=== PATIENT | female | born 1935 | race Caucasian/White ===

== ENCOUNTER 2017-07-04 19:57 | Inpatient (IN) | payer MEDICARE ==
[2017-07-04] MEDS ORDERED: ALBUTEROL SULFATE 0.083% NEB 2.5 MG/3 ML AMPUL NEB ONE ×2 (20:09→22:17)
[2017-07-04] MEDS ORDERED: IPRATROPIUM/ALBUTEROL 0.5-2.5 MG/3 ML AMPUL NEB ONE (20:09)
--- NOTE | 2017-07-04 20:10 | ER Document Report ---
ED General - General Stated Complaint: WEAKNESS Time Seen by Provider: 07/04/17 20:01 Notes: Patient is a 82 year old female who presents to the emergency department after witnessed AMS. Daughter states that she is coming back from the bathroom and she sat down that she did not feel well and proceeded to stare off for approximately 2 minutes with some twitching in her right hand and then when she came back to she has to go to the ER. EMS put her on 2L nasal cannula due to hypoxia.Daughter denies any history of seizures. Past medical history significant for congestive heart failure, hypertension. Unsure if PMH includes COPD Follows with [facility] - Related Data Allergies/Adverse Reactions: Beta-Blockers (Beta-Adrenergic Bloc Allergy (Verified 07/05/17 02:48) Past Medical History - Social History Smoking Status: Former Smoker Family History: Reviewed & Not Pertinent Review of Systems - Review of Systems Constitutional: No symptoms reported Cardiovascular: No symptoms reported Respiratory: See HPI Gastrointestinal: No symptoms reported Genitourinary: Incontinence Musculoskeletal: No symptoms reported Neurological/Psychological: See HPI -: Yes All other systems reviewed and negative Physical Exam - Notes Notes: PHYSICAL EXAM GENERAL: Alert, interacts well. HEAD: Normocephalic, atraumatic. EYES: Pupils equal, round, and reactive to light. Extraocular movements intact. ENT: Oral mucosa moist, tongue midline. NECK: Full range of motion. Supple. Trachea midline. LUNGS: Rhonchi noted in b/l lung bases, no wheezes, rales, or rhonchi. No respiratory distress. HEART: Regular rate and rhythm. No murmurs, gallops, or rubs. ABDOMEN: Soft, nondistended, nontender. No guarding, rebound, or rigidity.. Bowel sounds present in all 4 quadrants. EXTREMITIES: Moves all 4 extremities spontaneously. No edema, radial and dorsalis pedis pulses 2/4 bilaterally. No cyanosis. NEUROLOGICAL: Alert and oriented x4. Face symmetric. Tongue protrudes midline. Extraocular motions intact. Pupils are 2 mm and equally reactive. Normal speech. 5 out of 5 strength in both the distal and proximal upper and lower extremities bilaterally. Sensation is grossly intact throughout. Finger to nose testing normal. Pronator drift normal. PSYCH: Normal affect, normal mood. SKIN: Warm, dry, normal turgor. No rashes or lesions noted. Course - Re-evaluation Re-evalutation: 07/05/17 01:46 Patient is an 82-year-old female who is hemodynamically stable, no acute distress and afebrile. Presentation is consistent with a COPD exacerbation. Patient has improved on nebulizer treatments as well as nasal cannula but when ambulated she did desat to 88% was tachypneic she is trying to walk approximately 10 feet from her bed. Regarding her presenting complaint sounds consistent with absence seizure CT of the head is negative for evidence of a stroke. Patient's blood work without evidence of CHF exacerbation, electrolyte abnormalities, acute renal failure. Urinalysis is pending at this time. Patient to be admitted for hospitalist service. - Laboratory Result Diagrams: 07/04/17 19:25 07/04/17 19:25 Laboratory results interpreted by me: 07/04/17 07/04/17 07/04/17 19:25 19:25 22:35 WBC 13.9 H Hgb 16.4 H Hct 48.7 H Absolute Neutrophils 9.9 H ABG pO2 75.9 L ABG Total CO2 25.7 H BUN 27 H Est GFR (Non-Af Amer) 50 L Glucose 166 H Total Bilirubin 1.4 H - Diagnostic Test Radiology reviewed: Image reviewed, Reports reviewed - EKG Interpretation by Me EKG shows normal: Sinus rhythm Rate: Normal Rhythm: NSR When compared to previous EKG there are: Previous EKG unavailable Discharge - Discharge Clinical Impression: COPD (chronic obstructive pulmonary disease) Qualifiers: COPD type: unspecified COPD Qualified Code(s): J44.9 - Chronic obstructive pulmonary disease, unspecified Condition: Stable Disposition: ADMITTED INPATIENT Admitting Provider: Hospitalist Unit Admitted: Telemetry
[2017-07-04 20:20] LABS: ABSOLUTE BASOPHILS # (AUTO) 0.1 10^3/uL (0.0-0.2); ABSOLUTE EOSINOPHILS # (AUTO) 0.3 10^3/uL (0.0-0.6); ABSOLUTE LYMPHOCYTES (AUTO) 2.4 10^3/uL (0.5-4.7); ABSOLUTE MONOCYTES (AUTO) 1.1 10^3/uL (0.1-1.4); ABSOLUTE NEUT (AUTO) 9.9 10^3/uL (1.7-8.2); BASOPHILS % (AUTO) 0.8 % (0-2); EOSINOPHILS % (AUTO) 2.1 % (0-6); HEMATOCRIT 48.7 % (36.0-47.0); HEMOGLOBIN 16.4 g/dL (12.0-15.5); LYMPHOCYTES % (AUTO) 17.6 % (13-45); MEAN CORPUSCULAR HEMOGLOBIN 32.2 pg (27.0-33.4); MEAN CORPUSCULAR HGB CONC 33.7 g/dL (32.0-36.0); MEAN CORPUSCULAR VOLUME 96 fl (80-97); PLATELET COUNT 255 10^3/uL (150-450); RED CELL DISTRIBUTION WIDTH 13.5 % (11.5-14.0); SEGMENTED NEUTROPHILS % (AUTO) 71.5 % (42-78); TOTAL CELLS COUNTED % (AUTO) 100 %; WHITE BLOOD COUNT 13.9 10^3/uL (4.0-10.5)
[2017-07-04 20:28] LABS: ALANINE AMINOTRANSFERASE 40 U/L (9-52); ALBUMIN 4.2 g/dL (3.5-5.0); ALKALINE PHOSPHATASE 100 U/L (38-126); ANION GAP 14 (5-19); ASPARTATE AMINO TRANSFERASE 36 U/L (14-36); BILIRUBIN,DIRECT 0.4 mg/dL (0.0-0.4); BILIRUBIN,TOTAL 1.4 mg/dL (0.2-1.3); BLOOD UREA NITROGEN 27 mg/dL (7-20); CALCIUM 10.1 mg/dL (8.4-10.2); CARBON DIOXIDE 29 mmol/L (22-30); CHLORIDE 102 mmol/L (98-107); GLUCOSE 166 mg/dL (75-110); POTASSIUM 3.8 mmol/L (3.6-5.0); SODIUM 144.7 mmol/L (137-145); TOTAL PROTEIN 7.7 g/dL (6.3-8.2)
--- NOTE | 2017-07-04 21:52 | EKG REPORT ---
SEVERITY:- BORDERLINE ECG - SINUS RHYTHM BORDERLINE LEFT AXIS DEVIATION CONSIDER INFERIOR INFARCT : Confirmed by: Tj Nicole 04-Jul-2017 21:52:02
--- NOTE | 2017-07-04 22:11 | RADIOLOGY REPORT (SQ) ---
EXAM DESCRIPTION: CT HEAD WITHOUT COMPLETED DATE/TIME: 07/04/2017 9:50 pm REASON FOR STUDY: altered mental status COMPARISON: None. TECHNIQUE: Axial images acquired through the brain without intravenous contrast. Images reviewed wi th bone, brain and subdural windows. Images stored on PACS. All CT scanners at this facility use dose modulation, iterative reconstruction, and/or weight based d osing when appropriate to reduce radiation dose to as low as reasonably achievable (ALARA). [facility]: Dose Right [facility]: CareDose [facility]: Dose Right [facility]: Teradose 4D [facility]: Smart Maimai RADIATION DOSE: CT Rad equipment meets quality standard of care and radiation dose reduction techniq ues were employed. CTDIvol: 53.2 mGy. DLP: 1044 mGy-cm. mGy. LIMITATIONS: None. FINDINGS: VENTRICLES: Age-appropriate. CEREBRUM: No masses. No hemorrhage. No midline shift. Few scattered Areas of low density in the wh ite matter most likely due to chronic micro-vascular ischemic change. No evidence for large vessel a cute infarction. CEREBELLUM: No masses. No hemorrhage. No alteration of density. No evidence for acute infarction. EXTRAAXIAL SPACES: Mild age-related involutional change. No fluid collections. No masses. ORBITS AND GLOBE: No intra- or extraconal masses. Normal contour of globe without masses. CALVARIUM: No fracture. PARANASAL SINUSES: No fluid or mucosal thickening. SOFT TISSUES: No mass or hematoma. OTHER: No other significant finding. IMPRESSION: No intracranial hemorrhage or mass effect. Few scattered Areas of low density in the whi te matter most likely due to chronic micro-vascular ischemic change. No evidence for large vessel ac [place] infarction. EVIDENCE OF ACUTE STROKE: No TECHNICAL DOCUMENTATION: JOB ID: [id number] [place]-72 Quality ID # [id number]: Final reports with documentation of one or more dose reduction techniques (e.g., Au tomated exposure control, adjustment of the mA and/or kV according to patient size, use of iterative reconstruction technique) 2010 [employer]- All Rights Reserved Reading location - IP/workstation name: [employer]
--- NOTE | 2017-07-04 22:26 | RADIOLOGY REPORT (SQ) ---
EXAM DESCRIPTION: CHEST SINGLE VIEW COMPLETED DATE/TIME: 07/04/2017 10:01 pm REASON FOR STUDY: hypoxia COMPARISON: None. EXAM PARAMETERS: NUMBER OF VIEWS: One view. TECHNIQUE: Single frontal radiographic view of the chest acquired. RADIATION DOSE: NA LIMITATIONS: None. FINDINGS: LUNGS AND PLEURA: No consolidation, masses or pneumothorax. No pleural effusion. MEDIASTINUM AND HILAR STRUCTURES: Age-appropriate. HEART AND VASCULAR STRUCTURES: Heart upper limits of normal in size. Normal vasculature. BONES: No acute findings. HARDWARE: None in the chest. OTHER: No other significant finding. IMPRESSION: NO ACUTE RADIOGRAPHIC FINDING IN THE CHEST. TECHNICAL DOCUMENTATION: JOB ID: [id number] [place]-72 2010 [employer]- All Rights Reserved Reading location - IP/workstation name: [employer]
[2017-07-04] MEDS ORDERED: METHYLPREDNISOLONE INJ 125 MG/2 ML SDV IV ONE (23:08)
[2017-07-04 23:15] LABS: ARTERIAL BLOOD BASE EXCESS -0.1 mmol/L; ARTERIAL BLOOD FIO2 4L; ARTERIAL BLOOD HCO3 24.4 mmol/L (20-26); ARTERIAL BLOOD O2 SATURATION 95.3 % (94-98); ARTERIAL BLOOD PCO2 39.8 mmHg (35-45); ARTERIAL BLOOD PH 7.41 (7.35-7.45); ARTERIAL BLOOD PO2 75.9 mmHg (80-100); ARTERIAL BLOOD TOTAL CO2 25.7 mmol/L (21-25)
[2017-07-04] MEDS ORDERED: NORMAL SALINE 1000 ML 1,000 ML IV ONE (23:53)
[2017-07-05] MEDS ORDERED: ALBUTEROL SULFATE 0.083% NEB 2.5 MG/3 ML AMPUL NEB PRN (02:07)
[2017-07-05] MEDS ORDERED: PROMETHAZINE HCL INJ 25 MG/1 ML VIAL IV PRN (02:07)
[2017-07-05] MEDS ORDERED: LEVOFLOXACIN 500 MG TABLET PO ONE (02:55)
[2017-07-05] MEDS: METHYLPREDNISOLONE INJ 40 MG/1 ML SDV IV SCH ×3 (05:31→21:35)
[2017-07-05] MEDS: HEPARIN SOD (PORCINE) 5,000 UNIT/ML 1 ML SYRINGE SUBCUT SCH ×3 (05:31→21:35)
[2017-07-05 07:42] LABS: HEMATOCRIT 42.9 % (36.0-47.0); HEMOGLOBIN 14.6 g/dL (12.0-15.5); MEAN CORPUSCULAR HEMOGLOBIN 32.2 pg (27.0-33.4); MEAN CORPUSCULAR HGB CONC 34.1 g/dL (32.0-36.0); MEAN CORPUSCULAR VOLUME 95 fl (80-97); PLATELET COUNT 177 10^3/uL (150-450); RED BLOOD COUNT 4.53 10^6/uL (3.72-5.28); RED CELL DISTRIBUTION WIDTH 13.5 % (11.5-14.0); WHITE BLOOD COUNT 12.4 10^3/uL (4.0-10.5)
[2017-07-05 08:01] LABS: ANION GAP 13 (5-19); BLOOD UREA NITROGEN 30 mg/dL (7-20); CALCIUM 8.8 mg/dL (8.4-10.2); CARBON DIOXIDE 24 mmol/L (22-30); CHLORIDE 105 mmol/L (98-107); GLUCOSE 168 mg/dL (75-110); SODIUM 141.8 mmol/L (137-145)
[2017-07-05] MEDS: IPRATROPIUM/ALBUTEROL 0.5-2.5 MG/3 ML AMPUL NEB SCH ×3 (08:21→21:04)
--- NOTE | 2017-07-05 09:41 | PDOC H&P ---
History of Present Illness Admission Date/PCP: 07/05/17 01:52 Patient complains of: Possible syncopal episode x2 minutes. Hypoxia with oxygen saturation of 88% on room air per ED physician. History of Present Illness: RAFAELA RHODES is a 82 year old female with history of CVA with left hemiparesis, hypertension and questionable history of CHF was admitted with above-mentioned complaints. Most of the history was obtained from the ED physician/notes and her daughter at bedside. The patient apparently used to live in [place] and she relocated to [place] to live with her daughter. According to her daughter, the patient was at her baseline after having dinner last night. She then had a bowel movement and as her daughter was helping her sit down, she noticed that her mother was stiff with her eyes wide open staring into space, no incontinence, tongue biting or frothing at the mouth. The patient's son-in-law noticed that her right arm was shaking. The episode lasted about 2 minutes after which the patient became very diaphoretic and started complaining of being nauseous and not feeling well. She also seemed somewhat confused so her daughter called EMS. Upon arrival, EMS found the patient hypoxic and started her on 2 L nasal cannula per ED note. There was no report of any fever but the patient has chronic cough with possibly yellowish sputum but no sick contact. She always has chills. She is up-to- date with her flu vaccine. The patient denied any chest or abdominal pain but she has been having soft, nonbloody stool lately per daughter. She is incontinent of urine at times but she denied any dysuria or hematuria. She had any new focal weakness or numbness. She is usually able to ambulate using a walker. In the ED, her temperature was not recorded, heart rate 93, respiratory rate 24 , blood pressure 125/82 with oxygen saturation of 90% on room air (improved to 94% on 3 L nasal cannula). Her WBC was 13.9 with hemoglobin of 16.4. Her initial troponin was negative and her proBNP was 190. A Chest x-ray and a CAT scan of the head were done both of which were unremarkable for any acute findings. She received DuoNeb treatment 1, Albuterol neb 2 and 125 mg IV Solu -Medrol. Past Medical History Medical History: Other - According to patient's daughter and previous records. Cardiac Medical History: Reports: Hypertension, Other - leg edema. Musculoskeltal Medical History: Reports: Arthritis Psychiatric Medical History: Reports: Depression - anxiety Past Surgical History Past Surgical History: Reports: Cholecystectomy, Hysterectomy, Orthopedic Surgery - R knee replacement; Lower back surgery L5., Other - right hemicolectomy for diverticulitis per daughter. B/L cataract sx. Social History Smoking Status: Former Smoker Cigarettes Packs Per Day: 0 - She used to smoke about a pack a day about 40 years. She quit in . Frequency of Alcohol Use: None Hx Recreational Drug Use: No - Advance Directive Resuscitation Status: Full Code Family History Parental Family History Reviewed: Yes - No family history of diabetes or cardiac disease per daughter. Children Family History Reviewed: No Sibling(s) Family History Reviewed.: Yes Medication/Allergy Home Medications: Citalopram Hydrobromide [Citalopram HBr] 20 mg PO DAILY 07/05/17 Furosemide [Lasix 20 mg Tablet] 30 mg PO QAM 07/05/17 Gatifloxacin [Zymaxid] 1 drop OD ASDIR PRN 07/05/17 Hydrochlorothiazide [Hydrodiuril 25 mg Tablet] 25 mg PO QAM 07/05/17 Hydrocodone/Acetaminophen [Hydrocodon-Acetaminophen 5-325] 1 tab PO Q6HP PRN Ketoconazole [Nizoral 2% Shampoo 120 Ml Bottle] 1 applic TP 07/05/17 Losartan Potassium [Cozaar 50 mg Tablet] 50 mg PO Q12 07/05/17 Nystatin [Mycostatin Topical Powder 15 gm] 1 applic TP 07/05/17 Prednisolone Acetate [Pred Forte] ml OP 07/05/17 Silver Sulfadiazine [Silvadene 1% Cream 400 gm] 1 applic TP 07/05/17 Allergies/Adverse Reactions: Beta-Blockers (Beta-Adrenergic Bloc Allergy (Verified 07/05/17 08:51) Syncope Review of Systems ROS unobtainable: Other - Pertinent positives and negatives per HPI. Physical Exam General appearance: PRESENT: no acute distress, well-developed, well-nourished Head exam: PRESENT: atraumatic, normocephalic Eye exam: PRESENT: PERRLA Mouth exam: PRESENT: dry mucosa, neck supple Neck exam: PRESENT: full ROM. ABSENT: JVD Respiratory exam: PRESENT: decreased breath sounds, rhonchi. ABSENT: rales, wheezes Cardiovascular exam: PRESENT: RRR, +S1, +S2 Pulses: PRESENT: normal dorsalis pedis pul GI/Abdominal exam: PRESENT: normal bowel sounds, soft. ABSENT: distended, rebound, tenderness Rectal exam: PRESENT: deferred Extremities exam: ABSENT: pedal edema Musculoskeletal exam: PRESENT: other - decreased range of motion right shoulder since OA per daughter. she received IV steroid injection recently. Neurological exam: PRESENT: alert, altered, awake, oriented to person, oriented to place, CN II-XII grossly intact - except CNVIII., motor sensory deficit - Motor 4/5 throughout. Decreased left electric motor tester. No sensory deficit. No Babinski or clonus. Gait was not assessed. Results Laboratory Results: CBC: WBC 13.9, hemoglobin 16.4, hematocrit 48.7, MCV 96, RDW 13.5, platelets 255. AB.41/30 9.8/75.9/24.4 with 95% on 4 L nasal cannula. IMP: Sodium 144.7, potassium 3.8, chloride 102, bicarb 29, anion gap 14, BUN 27 , creatinine 1.05, glucose 166, calcium 10.1, total bili 1.4, liver enzymes within normal limits. Troponin 1 negative. ProBNP: 190. UA: pending. EKG Comments: 12-Lead EKG, sinus rhythm, ventricular rate 85, [place] 0, QTC prolongation, first- degree AV block, no acute changes. No previous twelve-lead EKG to compare. Impressions: Head CT 07/04/17 20:09 IMPRESSION: No intracranial hemorrhage or mass effect. Few scattered Areas of low density in the white matter most likely due to chronic micro-vascular ischemic change. No evidence for large vessel acute infarction. EVIDENCE OF ACUTE STROKE: No Chest X-Ray 07/04/17 20:31 IMPRESSION: NO ACUTE RADIOGRAPHIC FINDING IN THE CHEST. Assessment & Plan - Diagnosis (1) Acute respiratory failure with hypoxia Is this a current diagnosis for this admission?: Yes Plan: possibly on chronic given tachypnea and PO2 of 75.9 requiring 3-4 L of oxygen, probably secondary to COPD exacerbation, less likely CHF exacerbation/pneumonia or PE. CXR reviewed. Will continue to cycle cardiac enzymes and check d-dimer and an echocardiogram. Her proBNP was 190. Will continue scheduled DuoNeb treatments, Solu-Medrol and Levaquin. Of note according to her daughter, the patient was considered high risk for left knee replacement secondary to cardiac disease. But she apparently was seen by cardiology as outpatient where an echocardiogram was done which was reportedly unremarkable. The patient denied any cardiac workup in the past but CHF diagnosis is listed as part of her past medical history. Will follow-up echocardiogram and adjust her medications as indicated. (2) Syncope Qualifiers: Syncope type: unspecified Qualified Code(s): R55 - Syncope and collapse Is this a current diagnosis for this admission?: Yes Plan: Convulsive syncope and/or partial seizure activity after having bowel movement. CAT scan of the head was negative. Will check orthostasis and carotid Dopplers bilaterally. EEG is not available at this facility. Will follow-up cardiac workup as mentioned above. (3) SIRS (systemic inflammatory response syndrome) Is this a current diagnosis for this admission?: Yes Plan: Given tachypnea and leukocytosis. CXR was negative. UA pending. Will repeat CBC in a.m. and start antibiotics if indicated. (4) Essential hypertension Is this a current diagnosis for this admission?: Yes Plan: According to her daughter, the patient used to be on lisinopril and Norvasc for her blood pressure but it was still uncontrolled. She was switched few months ago to losartan 50 mg twice a day, hydrochlorothiazide 25 mg daily in addition to Lasix 20 mg every other day with improvement in her blood pressure. Will check orthostasis and continue to monitor her blood pressure. Will restart BP medications as indicated. (5) Chronic cough Is this a current diagnosis for this admission?: Yes Plan: Unclear etiology at this time. Of note, the patient was on lisinopril before she was switched to losartan. Will hold MYRA-I and ARB for now and monitor. Will also start PPI. She is already on Mucinex and Claritin as outpatient. (6) Cataract Qualifiers: Cataract type: unspecified Laterality: bilateral Qualified Code(s): H26.9 - Unspecified cataract Is this a current diagnosis for this admission?: No Plan: She had right cataract extracted 2 months ago and left catarct extraction 3 weeks ago per daughter. - Time Time Spent: Greater than 70 Minutes - Inpatient Certification Based on my medical assessment, after consideration of the patient's comorbidities, presenting symptoms, or acuity I expect that the services needed warrant INPATIENT care.: Yes I certify that my determination is in accordance with my understanding of Medicare's requirements for reasonable and necessary INPATIENT services [42 CFR 412.3e].: Yes
[2017-07-05] MEDS ORDERED: LANSOPRAZOLE 30 MG TAB.RAP.DR PO ONE (10:30)
--- NOTE | 2017-07-05 11:39 | RADIOLOGY REPORT (SQ) ---
EXAM DESCRIPTION: MRI HEAD WITHOUT COMPLETED DATE/TIME: 07/05/2017 11:10 am REASON FOR STUDY: SUSPECTED TIA. R/O CVA COMPARISON: None. TECHNIQUE: Multiplanar imaging includes non-contrasted T1, T2, FLAIR, and diffusion with ADC map seq uences. Images stored on PACS. LIMITATIONS: None. FINDINGS: ANATOMY: No anomalies. Normal vascular flow voids. Pituitary fossa normal. CSF SPACES: Atrophy induced prominence of ventricles and CSF spaces. CEREBRUM: High signal intensity lesions scattered throughout the white matter on FLAIR imaging with d istribution suggesting micro-vascular ischemic changes. No evidence of hemorrhage, mass, or extraaxi al fluid collection. POSTERIOR FOSSA: No signal alteration. No hemorrhage. No edema, masses or mass effect. Internal mike tory canals, cerebello-pontine angles, mastoids normal. DIFFUSION IMAGING: Negative for acute or sub-acute infarction. ORBITS: No masses. Globes normal. PARANASAL SINUSES: No fluid levels. Mucosa normal. OTHER: No other significant finding. IMPRESSION: No acute abnormality in the brain. EVIDENCE OF ACUTE STROKE: NO. TECHNICAL DOCUMENTATION: JOB ID: [id number] [employer]- All Rights Reserved Reading location - IP/workstation name: [email or web address]
--- NOTE | 2017-07-05 11:40 | RADIOLOGY REPORT (SQ) ---
EXAM DESCRIPTION: MRA HEAD WITHOUT COMPLETED DATE/TIME: 07/05/2017 11:10 am REASON FOR STUDY: SUSPECTED TIA. R/O CVA COMPARISON: None. TECHNIQUE: Axial 3-D nanr-ys-pivpgh acquisition imaging performed through the brain in the area of t he [place] of [place]. Images reformatted using 3-D MIPS. LIMITATIONS: None. FINDINGS: SOURCE IMAGES: See separate report of the same date. 3-D MIP: No aneurysm. No occlusions. No significant stenosis. OTHER: No other significant finding. IMPRESSION: NORMAL MRA OF [place]. TECHNICAL DOCUMENTATION: JOB ID: [id number] [employer]- All Rights Reserved Reading location - IP/workstation name: [email or web address]
--- NOTE | 2017-07-05 15:38 | RADIOLOGY REPORT (SQ) ---
EXAM DESCRIPTION: CTA CHEST COMPLETED DATE/TIME: 07/05/2017 3:24 pm REASON FOR STUDY: r/o pe. SOB and +Ddimer COMPARISON: None. TECHNIQUE: CT scan of the chest performed using helical scanning technique with dynamic intravenous contrast injection. Images reviewed with lung, soft tissue and bone windows. Reconstructed coronal and sagittal MPR images reviewed. Additional 3 dimensional post-processing performed to develop Maximal Intensity Projection images (N[place] P). All images stored on PACS. All CT scanners at this facility use dose modulation, iterative reconstruction, and/or weight based d osing when appropriate to reduce radiation dose to as low as reasonably achievable (ALARA). [facility]: Dose Right [facility]: CareDose [facility]: Dose Right [facility]: Teradose 4D [facility]: Metabacus CONTRAST TYPE AND DOSE: contrast/concentration: Isovue mg/ml; Total Contrast Delivered: 0.0 ml; Tot al Saline Delivered: 21.3 ml RENAL FUNCTION: BUN 30 creatinine 0.9 RADIATION DOSE: CT Rad equipment meets quality standard of care and radiation dose reduction techniq ues were employed. CTDIvol: 1.9 - 13.9 mGy. DLP: 494 mGy-cm. . LIMITATIONS: Motion artifact. FINDINGS: LUNGS AND PLEURA: Diffuse ground-glass attenuation. No evidence of focal consolidation. No effusions. AORTA AND GREAT VESSELS: Dilated ascending aorta 4.6 cm. HEART: Cardiomegaly. No pericardial effusion. PULMONARY ARTERIES: Filling defects in the bilateral upper and lower lobe pulmonary arteries. HILAR AND MEDIASTINAL STRUCTURES: No identified masses or abnormal nodes. HARDWARE: None in the chest. UPPER ABDOMEN: No acute findings. THYROID AND OTHER SOFT TISSUES: No masses. No adenopathy. BONES: No acute findings. 3D MIPS: Confirm above findings. OTHER: No other significant finding. IMPRESSION: Positive for bilateral pulmonary emboli. COMMENT: Findings were called to the patient's nurse Ilana Castellon at 1524 hours. Quality ID # [id number]: Final reports with documentation of one or more dose reduction techniques (e.g., Au tomated exposure control, adjustment of the mA and/or kV according to patient size, use of iterative reconstruction technique) TECHNICAL DOCUMENTATION: JOB ID: [id number] [employer]- All Rights Reserved Reading location - IP/workstation name: [facility]
--- NOTE | 2017-07-05 18:22 | Progress Note ---
Provider Note Provider Note: Patient assessed in the emergency department. Agree with treatment plan set forth by PENELOPE. 1. AMS -differential diagnosis includes TIA versus absence seizure in elderly patient with history of CVA. Continue with TIA workup MRI MRA brain, carotid Doppler, echocardiogram. If all results are negative, consider placing patient on low-dose Keppra with outpatient follow-up to neurology. 2. Shortness of breath -differential diagnosis includes COPD exacerbation vs. PE vs. cardiac event. EKG shows normal sinus rhythm. Troponin 0.055, continue to trend. Patient denies chest pain or shortness of breath. Chest CTA positive for bilateral pulmonary emboli. Initiate Eliquis 5 mg twice daily. Plan for lower extremity Doppler. 3. HTN -continue home antihypertensives.
[2017-07-05] MEDS: NYSTATIN TOPICAL POWDER 15 GM TP SCH (21:35)
[2017-07-05] MEDS: APIXABAN 5 MG TABLET PO SCH (21:35)
[2017-07-05] MEDS ORDERED: LEVOFLOXACIN 500 MG TABLET PO SCH (22:00)
[2017-07-05 23:53] LABS: CREATINE KINASE MB 4.62 ng/mL (<4.55)
[2017-07-05 23:59] LABS: TROPONIN I 0.708 ng/mL
[2017-07-06] MEDS: IPRATROPIUM/ALBUTEROL 0.5-2.5 MG/3 ML AMPUL NEB SCH ×2 (02:09→08:53)
[2017-07-06 06:12] LABS: HEMOGLOBIN 13.9 g/dL (12.0-15.5); MEAN CORPUSCULAR HEMOGLOBIN 31.8 pg (27.0-33.4); MEAN CORPUSCULAR VOLUME 94 fl (80-97); PLATELET COUNT 185 10^3/uL (150-450); RED BLOOD COUNT 4.39 10^6/uL (3.72-5.28); RED CELL DISTRIBUTION WIDTH 13.6 % (11.5-14.0); WHITE BLOOD COUNT 16.7 10^3/uL (4.0-10.5)
[2017-07-06] MEDS: LANSOPRAZOLE 30 MG TAB.RAP.DR PO SCH (06:16)
[2017-07-06] MEDS: HEPARIN SOD (PORCINE) 5,000 UNIT/ML 1 ML SYRINGE SUBCUT SCH ×2 (06:19→16:04)
[2017-07-06] MEDS: METHYLPREDNISOLONE INJ 40 MG/1 ML SDV IV SCH (06:19)
[2017-07-06 06:30] LABS: ANION GAP 13 (5-19); BLOOD UREA NITROGEN 33 mg/dL (7-20); CARBON DIOXIDE 23 mmol/L (22-30); CHLORIDE 105 mmol/L (98-107); CREATINE KINASE 84 U/L (30-135); GLUCOSE 157 mg/dL (75-110); POTASSIUM 3.7 mmol/L (3.6-5.0); SODIUM 140.5 mmol/L (137-145)
[2017-07-06 06:43] LABS: CREATINE KINASE MB 5.47 ng/mL (<4.55)
[2017-07-06 06:50] LABS: TROPONIN I 0.642 ng/mL
[2017-07-06] MEDS: NYSTATIN TOPICAL POWDER 15 GM TP SCH ×2 (09:27→22:11)
[2017-07-06] MEDS: ASPIRIN 81 MG TABLET, CHEWABLE PO SCH (09:32)
[2017-07-06] MEDS: APIXABAN 5 MG TABLET PO SCH ×2 (09:33→22:11)
--- NOTE | 2017-07-06 11:40 | PDOC CONSULTATION ---
Consultation Consult Date: 07/06/17 Attending physician:: ZAC MACIAS Consult reason:: Chest pain and positive troponin I History of Present Illness Admission Date/PCP: 07/05/17 01:52 Patient complains of: Shortness of breath History of Present Illness: RAFAELA RHODES is a 82 year old female with history of CVA with left hemiparesis, hypertension and questionable history of CHF was admitted with above-mentioned complaints. Most of the history was obtained from the ED physician/notes and her daughter at bedside. The patient apparently used to live in [place] and she relocated to [place] to live with her daughter. According to her daughter, the patient was at her baseline after having dinner last night. She then had a bowel movement and as her daughter was helping her sit down, she noticed that her mother was stiff with her eyes wide open staring into space, no incontinence, tongue biting or frothing at the mouth. The patient's son-in-law noticed that her right arm was shaking. The episode lasted about 2 minutes after which the patient became very diaphoretic and started complaining of being nauseous and not feeling well. She also seemed somewhat confused so her daughter called EMS. Upon arrival, EMS found the patient hypoxic and started her on 2 L nasal cannula per ED note. There was no report of any fever but the patient has chronic cough with possibly yellowish sputum but no sick contact. She always has chills. She is up-to- date with her flu vaccine. The patient denied any chest or abdominal pain but she has been having soft, nonbloody stool lately per daughter. She is incontinent of urine at times but she denied any dysuria or hematuria. She had any new focal weakness or numbness. She is usually able to ambulate using a walker. In the ED, her temperature was not recorded, heart rate 93, respiratory rate 24 , blood pressure 125/82 with oxygen saturation of 90% on room air (improved to 94% on 3 L nasal cannula). Her WBC was 13.9 with hemoglobin of 16.4. Her initial troponin was negative and her proBNP was 190. A Chest x-ray and a CAT scan of the head were done both of which were unremarkable for any acute findings. She received DuoNeb treatment 1, Albuterol neb 2 and 125 mg IV Solu -Medrol. This history obtained by the hospitalist was reviewed. Today on questioning patient did admit to having some chest tightness. Patient still has some shortness of breath but is much improved. Evaluation since admission showed CTA positive for bilateral pulmonary embolism. Troponin I in the suggestive range. Twelve-lead EKG shows sinus tachycardia without any acute ST-T wave changes. Past Medical History Cardiac Medical History: Reports: Hypertension, Other - leg edema. Neurological Medical History: Reports: Ischemic CVA Musculoskeltal Medical History: Reports: Arthritis Psychiatric Medical History: Reports: Depression - anxiety Past Surgical History Past Surgical History: Reports: Cholecystectomy, Hysterectomy, Orthopedic Surgery - R knee replacement; Lower back surgery L5., Other - right hemicolectomy for diverticulitis per daughter. B/L cataract sx. Social History Information Source: Patient Smoking Status: Former Smoker Cigarettes Packs Per Day: 0 Frequency of Alcohol Use: None Hx Recreational Drug Use: No Hx Prescription Drug Abuse: No - Advance Directive Resuscitation Status: Full Code Surrogate healthcare decision maker:: Patient's daughter is the surrogate decision-maker Family History Family History: Reviewed & Not Pertinent Parental Family History Reviewed: Yes Children Family History Reviewed: Yes Sibling(s) Family History Reviewed.: Yes Medication/Allergy Home Medications: Citalopram Hydrobromide [Citalopram HBr] 20 mg PO DAILY 07/05/17 Furosemide [Lasix 20 mg Tablet] 30 mg PO QAM 07/05/17 Gatifloxacin [Zymaxid] 1 drop OD ASDIR PRN 07/05/17 Hydrochlorothiazide [Hydrodiuril 25 mg Tablet] 25 mg PO QAM 07/05/17 Hydrocodone/Acetaminophen [Hydrocodon-Acetaminophen 5-325] 1 tab PO Q6HP PRN Ketoconazole [Nizoral] 1 applic TP DAILY 07/05/17 Loratadine [Claritin 10 mg Tablet] 10 mg PO DAILY 07/05/17 Losartan Potassium [Cozaar 50 mg Tablet] 50 mg PO Q12 07/05/17 Nystatin [Mycostatin Topical Powder 15 gm] 1 applic TP BID 07/05/17 Prednisolone Acetate [Pred Forte] 1 drop OS BID MDD THROUGH 07-08-17 07/05/17 Prednisolone Acetate [Pred Forte] 1 drop OS DAILY MDD STARTING 07/09 ENDING 07/1507/05/17 Allergies/Adverse Reactions: Beta-Blockers (Beta-Adrenergic Bloc Allergy (Verified 07/05/17 08:51) Syncope Review of Systems Review of Systems: Please see history of present illness and past medical history as wall. Constitutional: No fever or chills reported. Head : No recent chronic headaches, recent head injury. Eyes: No recent eye pain, diplopia, redness, discharge, acute visual changes. Ears: No recent chronic ear pain, acute hearing loss, ear discharge. Oral cavity: No recent ulcerations, bleeding, oral cavity discomfort. Neck: No recent acute neck pain reported. Hematologic: No recent easy bruising or bleeding. Lymphatic: No recent lymph node enlargement reported. Cardiovascular system review: See history of present illness. Respiratory system review: No hemoptysis or blood clots in the lungs reported. Shortness of breath on exertion Gastrointestinal system review: Negative for any recent acute hematemesis, melena. Genitourinary system review: No recent acute or chronic hematuria, flank pain, UTI etc. reported. Skin system review: Negative for any recent abnormal bruising, no rash, no pruritus reported. Neurologic: Positive history of prior stroke but no prior seizure disorder. Psychologic: No history of major psychosis or major depression reported. Musculoskeletal: Minor aches and pains reported. No acute joint swelling reported. Left-sided weakness reported. Endocrine: No recent polyuria, polydipsia, recent heat or cold intolerance. Physical Exam Vital Signs: Temp Pulse Resp BP Pulse Ox 97.6 F 83 18 144/77 H 92 07/06/17 07:34 07/06/17 08:52 07/06/17 08:52 07/06/17 07:34 07/06/17 08:52 Intake & Output 07/05/17 07/06/17 07/07/17 06:59 06:59 06:59 Intake Total 123 Balance 123 Weight 98.3 kg Exam: GENERAL: well-nourished and in no acute distress. Alert and oriented x3 HEAD: Atraumatic, normocephalic. EYES: Pupils equal round and reactive to light, extraocular movements intact, sclera anicteric, conjunctiva are normal. ENT: TMs normal, nares patent, oropharynx clear without exudates. Moist mucous membranes. No oral ulcerations or bleeding gums noted NECK: supple without lymphadenopathy. Trachea is central. No cervical or axillary lymphadenopathy noted. Carotids are 2+, JVD WNL LUNGS: Respiration seems nonlabored, no significant accessory muscle action noted. Breath sounds clear to auscultation bilaterally and equal noted. No wheezes rales or rhonchi noted. No significant dullness noted on percussion. CHEST: Palpation of the chest wall shows no significant chest wall tenderness. 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 ABDOMEN: Soft, no significant tenderness appreciated, normoactive bowel sounds. No guarding, no rebound. No rigidity noted . No masses appreciated. EXTREMITIES: Pedal pulses are 1-2+, no calf tenderness noted. No clubbing or cyanosis. 1+ pedal edema noted NEUROLOGICAL: Focused neurological exam mild left hemiplegia findings. PSYCH: Normal mood, normal affect. Judgment and insight not checked. SKIN: No significant ecchymosis, skin is noted to be warm. MUSCULOSKELETAL EXAM: No significant acute joint swelling noted. Results Laboratory Results: 07/06/17 05:30 07/06/17 05:30 07/06/17 07/06/17 05:30 05:30 WBC 16.7 H RBC 4.39 Hgb 13.9 Hct 41.0 MCV 94 MCH 31.8 MCHC 34.0 RDW 13.6 Plt Count 185 Sodium 140.5 Potassium 3.7 Chloride 105 Carbon Dioxide 23 Anion Gap 13 BUN 33 H Creatinine 0.82 Est GFR ( Amer) > 60 Est GFR (Non-Af Amer) > 60 Glucose 157 H Calcium 9.0 07/05/17 07/05/17 07/05/17 02:51 07:26 15:55 Creatine Kinase CK-MB (CK-2) Troponin I 0.022 0.177 Cancelled 07/05/17 07/05/17 07/05/17 16:50 23:15 23:15 Creatine Kinase 86 CK-MB (CK-2) 4.62 H Troponin I 0.482 0.708 07/06/17 07/06/17 05:30 05:30 Creatine Kinase 84 CK-MB (CK-2) 5.47 H Troponin I 0.642 EKG Comments: Twelve-lead EKG obtained shows sinus tachycardia without any acute ST-T wave changes Impressions: Head CT 04/22/18 20:09 IMPRESSION: No intracranial hemorrhage or mass effect. Few scattered Areas of low density in the white matter most likely due to chronic micro-vascular ischemic change. No evidence for large vessel acute infarction. EVIDENCE OF ACUTE STROKE: No Chest X-Ray 07/04/17 20:31 IMPRESSION: NO ACUTE RADIOGRAPHIC FINDING IN THE CHEST. Chest/Abdomen CTA 07/05/17 00:00 IMPRESSION: Positive for bilateral pulmonary emboli. Brain MRI with MRA 07/05/17 09:25 IMPRESSION: NORMAL MRA OF THE [place]. Head MRI 07/05/17 09:25 IMPRESSION: No acute abnormality in the brain. EVIDENCE OF ACUTE STROKE: NO. Assessment & Plan - Diagnosis (1) Pulmonary embolism Qualifiers: Pulmonary embolism type: other Chronicity: acute Acute cor pulmonale presence: with acute cor pulmonale Qualified Code(s): I26.09 - Other pulmonary embolism with acute cor pulmonale Is this a current diagnosis for this admission?: Yes (2) Elevated troponin I level Is this a current diagnosis for this admission?: Yes (3) Acute respiratory failure with hypoxia Is this a current diagnosis for this admission?: Yes (4) COPD (chronic obstructive pulmonary disease) Qualifiers: COPD type: unspecified COPD Qualified Code(s): J44.9 - Chronic obstructive pulmonary disease, unspecified Is this a current diagnosis for this admission?: Yes (5) Syncope Qualifiers: Syncope type: unspecified Qualified Code(s): R55 - Syncope and collapse Is this a current diagnosis for this admission?: Yes (6) NSTEMI (non-ST elevated myocardial infarction) Is this a current diagnosis for this admission?: Yes - Notes Notes: Pulmonary embolism: Patient noted to have bilateral significant pulmonary embolism. This was noted on CTA of the chest. Patient also has troponin I leak which tends to imply acute cor pulmonale from pulmonary embolism and RV strain. At this point will recommend chronic anticoagulation, 2D echocardiogram. Agree with scheduling venous duplex. Further plans after review of 2D echocardiogram. Elevated troponin I: Most likely related to acute pulmonary embolism. Patient does have coronary calcification therefore does have CAD but current troponin I elevation can be explained by pulmonary embolism. Acute hypoxic respiratory failure: Related to pulmonary embolism on top of COPD. NSTEMI: Related to supply demand mismatch and metabolic reason. COPD: Currently stable. Syncope: Related to pulmonary embolism. Recommend cardiac monitoring. Do not feel a ischemia evaluation is indicated at this time. - Time Time Spent: 30 to 50 Minutes - CODE STATUS was discussed, patient remains full code. Surrogate decision-maker patient's daughter. Multiple medical problems were addressed. More than 50% of the time spent coordinating care, discussing management plans with involved caregivers. Management plans discussed with involved personnels. Medical decision making was of moderate to high complexity , patient's has multiple comorbidities. Medications reviewed and adjusted accordingly: Yes
[2017-07-06 12:56] LABS: CREATINE KINASE MB 4.98 ng/mL (<4.55); TROPONIN I 0.598 ng/mL
--- NOTE | 2017-07-06 14:39 | RADIOLOGY REPORT (SQ) ---
EXAM DESCRIPTION: VENOUS BILATERAL LOWER COMPLETED DATE/TIME: 07/06/2017 2:21 pm REASON FOR STUDY: multiple B/L pulmonary emboli COMPARISON: None. TECHNIQUE: Dynamic and static arrieta scale and color images acquired of both lower extremity venous sy stems. Selected spectral images acquired with additional compression and augmentation maneuvers. Imag es stored on PACS. LIMITATIONS: None. FINDINGS: RIGHT LEG COMMON FEMORAL AND FEMORAL: Patent common femoral vein. Partially occlusive thrombus in the proximal femoral vein. POPLITEAL: Normal compression and augmentation. No visualized echogenic material on arrieta scale. No de fects on color images. CALF VESSELS: Normal compression and augmentation. No visualized echogenic material on arrieta scale. No defects on color image. GSV AND SSV: Normal compression. No visualized echogenic material on arrieta scale. No defects on color images. ANY DEEP VENOUS INSUFFICIENCY: Not evaluated. ANY EVIDENCE OF POPLITEAL CYST: No. OTHER: No other significant finding. LEFT LEG COMMON FEMORAL AND FEMORAL: Normal phasicity, compression and augmentation. No visualized echogenic m aterial on arrieta scale. No defects on color images. POPLITEAL: Normal compression and augmentation. No visualized echogenic material on arrieta scale. No de fects on color images. CALF VESSELS: Normal compression and augmentation. No visualized echogenic material on arrieta scale. No defects on color images. GSV AND SSV: Normal compression. No visualized echogenic material on arrieta scale. No defects on color images. ANY DEEP VENOUS INSUFFICIENCY: Not evaluated. ANY EVIDENCE POPLITEAL CYST: No. OTHER: No other significant finding. IMPRESSION: PARTIALLY OCCLUSIVE THROMBUS IN THE PROXIMAL RIGHT FEMORAL VEIN. NO EVIDENCE OF DEEP VE NOUS THROMBOSIS IN THE LEFT LEG. TECHNICAL DOCUMENTATION: JOB ID: [id number] [employer]- All Rights Reserved Reading location - IP/workstation name: [email or web address]
--- NOTE | 2017-07-06 14:42 | RADIOLOGY REPORT (SQ) ---
EXAM DESCRIPTION: CAROTID DOPPLER COMPLETED DATE/TIME: 07/06/2017 2:20 pm REASON FOR STUDY: syncope COMPARISON: CT brain 07/04/2017 TECHNIQUE: Grayscale ultrasound, Doppler velocity and spectra, and color Doppler images acquired of the extra-cranial carotid and vertebral arteries. Images stored on PACS. LIMITATIONS: None. FINDINGS: RIGHT CAROTID CCA Velocities: Within normal limits. ICA Velocities Peak systolic 0.33 m/s. End diastolic 0.07 m/s. Proximal ICA/CCA peak systolic ratio 0.8. Spectra normal. No significant plaque. LEFT CAROTID CCA Velocities: Within normal limits. ICA Velocities Peak systolic 0.29 m/s. End diastolic 0.07 m/s. Proximal ICA/CCA peak systolic ratio 0.9. Spectra normal. No significant plaque. VERTEBRAL ARTERIES: Antegrade flow. Normal waveforms. SUBCLAVIAN ARTERIES: Not evaluated OTHER: No other significant finding. IMPRESSION: NO HEMODYNAMICALLY SIGNIFICANT STENOSIS. COMMENT: Quality ID #[id number]: Velocity criteria are extrapolated from the diameter data as defined by t he Society of Radiologists in Ultrasound Consensus Conference. Radiology 2003: 229; 340-346. TECHNICAL DOCUMENTATION: JOB ID: [id number] [employer]- All Rights Reserved Reading location - IP/workstation name: [email or web address]
--- NOTE | 2017-07-06 16:58 | PDOC PROGRESS REPORT ---
Subjective Progress Note for:: 07/06/17 Subjective:: The patient is an 82-year-old female with a past medical history of CVA with left hemiparesis, hypertension, questionable history of CHF, hypertension, arthritis, depression and anxiety who was admitted on 07/05/17 with acute respiratory failure with hypoxia determined to be related to bilateral pulmonary embolus. The patient is seen on morning rounds. She is found resting in bed comfortably on supplemental oxygen at 2 L/min; the patient is not home O2 dependent. She has just completed a nebulizer treatment; per respiratory therapy, the patient' s lung sounds have always been clear and without or wheezing. The patient denies headache, dizziness, chest pain, palpitations, dyspnea, orthopnea. Overall, the patient states that she is feeling quite well today and cannot recall the events leading up to her hospital admission. She has no questions at this time. Unfortunately, the patient's daughter is unavailable at this time; she is a schoolteacher. Reason For Visit: COPD EXACERBATION Physical Exam Vital Signs: Temp Pulse Resp BP Pulse Ox 98.1 F 91 18 137/78 H 90 L 07/06/17 11:46 07/06/17 14:00 07/06/17 11:46 07/06/17 11:46 07/06/17 11:46 Intake & Output 07/05/17 07/06/17 07/07/17 06:59 06:59 06:59 Intake Total 123 458 Balance 123 458 Weight 98.3 kg General appearance: PRESENT: no acute distress, morbidly obese, well-developed, well-nourished Head exam: PRESENT: atraumatic, normocephalic Eye exam: PRESENT: conjunctiva pink, EOMI, PERRLA. ABSENT: scleral icterus Ear exam: PRESENT: normal external ear exam Mouth exam: PRESENT: moist, tongue midline Neck exam: ABSENT: carotid bruit, JVD, lymphadenopathy, thyromegaly Respiratory exam: PRESENT: crackles - Bibasilar; Rt>Lt, decreased breath sounds - Bibasilar, symmetrical, unlabored, other - Supplemental oxygen at 2 L/min. ABSENT: rales, rhonchi, wheezes Cardiovascular exam: PRESENT: RRR, +S1, +S2. ABSENT: diastolic murmur, rubs, systolic murmur Pulses: PRESENT: normal dorsalis pedis pul Vascular exam: PRESENT: normal capillary refill GI/Abdominal exam: PRESENT: normal bowel sounds, soft. ABSENT: distended, guarding, mass, organolmegaly, rebound, tenderness Rectal exam: PRESENT: deferred Extremities exam: PRESENT: full ROM. 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 ABSENT: motor sensory deficit Psychiatric exam: PRESENT: appropriate affect, normal mood. ABSENT: homicidal ideation, suicidal ideation Skin exam: PRESENT: dry, erythema - Excoriation to perineum and buttocks., intact, warm. ABSENT: cyanosis, rash Results Laboratory Results: 07/06/17 05:30 07/06/17 05:30 07/06/17 07/06/17 05:30 05:30 WBC 16.7 H RBC 4.39 Hgb 13.9 Hct 41.0 MCV 94 MCH 31.8 MCHC 34.0 RDW 13.6 Plt Count 185 Sodium 140.5 Potassium 3.7 Chloride 105 Carbon Dioxide 23 Anion Gap 13 BUN 33 H Creatinine 0.82 Est GFR ( Amer) > 60 Est GFR (Non-Af Amer) > 60 Glucose 157 H Calcium 9.0 07/05/17 07/05/17 07/05/17 02:51 07:26 15:55 Creatine Kinase CK-MB (CK-2) Troponin I 0.022 0.177 Cancelled 07/05/17 07/05/17 07/05/17 16:50 23:15 23:15 Creatine Kinase 86 CK-MB (CK-2) 4.62 H Troponin I 0.482 0.708 07/06/17 07/06/17 07/06/17 05:30 05:30 12:08 Creatine Kinase 84 70 CK-MB (CK-2) 5.47 H Troponin I 0.642 07/06/17 12:08 Creatine Kinase CK-MB (CK-2) 4.98 H Troponin I 0.598 Impressions: Head CT 07/04/17 20:09 IMPRESSION: No intracranial hemorrhage or mass effect. Few scattered Areas of low density in the white matter most likely due to chronic micro-vascular ischemic change. No evidence for large vessel acute infarction. EVIDENCE OF ACUTE STROKE: No Chest X-Ray 07/04/17 20:31 IMPRESSION: NO ACUTE RADIOGRAPHIC FINDING IN THE CHEST. Chest/Abdomen CTA 07/05/17 00:00 IMPRESSION: Positive for bilateral pulmonary emboli. Brain MRI with MRA 07/05/17 09:25 IMPRESSION: NORMAL MRA OF THE [place] OF [place]. Head MRI 07/05/17 09:25 IMPRESSION: No acute abnormality in the brain. EVIDENCE OF ACUTE STROKE: NO. Venous Doppler Study 07/06/17 00:00 IMPRESSION: PARTIALLY OCCLUSIVE THROMBUS IN THE PROXIMAL RIGHT FEMORAL VEIN. NO EVIDENCE OF DEEP VENOUS THROMBOSIS IN THE LEFT LEG. Carotid Doppler Study 07/06/17 09:14 IMPRESSION: NO HEMODYNAMICALLY SIGNIFICANT STENOSIS. Assessment & Plan - Diagnosis (1) Acute respiratory failure with hypoxia Is this a current diagnosis for this admission?: Yes Plan: Improved; patient has now been weaned to room air. Acute respiratory failure with hypoxia noted on admission; tachypnea, PO2 of 75.9 requiring 3-4 L of oxygen. Chest x-ray was negative for acute cardiopulmonary findings. CT of the chest revealed bilateral pulmonary emboli. ProBNP 190. The patient was admitted to [facility] on continuous cardiac telemetry. She is provided supplemental oxygen as needed to maintain oxygen saturations greater than 90% We will decrease scheduled nebulizer treatments and steroid therapy as I do not believe this to be an infectious or COPD process. Incentive spirometry to bedside; use hourly while awake. OOB/Ambulate twice daily with assistance. (2) Pulmonary embolism Qualifiers: Pulmonary embolism type: other Chronicity: acute Acute cor pulmonale presence: with acute cor pulmonale Qualified Code(s): I26.09 - Other pulmonary embolism with acute cor pulmonale Is this a current diagnosis for this admission?: Yes Plan: The patient was noted to have bilateral pulmonary emboli by CTA of the chest. Venous Doppler study was positive for a partially occlusive thrombus in the proximal right femoral vein. The patient has been placed on Eliquis 5 mg twice daily. (3) DVT, femoral, acute Qualifiers: Laterality: right Qualified Code(s): I82.411 - Acute embolism and thrombosis of right femoral vein Is this a current diagnosis for this admission?: Yes Plan: Venous Dopplers positive for a partially occlusive thrombus of the right proximal femoral vein. Continue Eliquis 5 mg p.o. twice daily. PT/OT have been consulted. The patient will likely benefit from short-term rehabilitation upon discharge; will consult discharge planning to assist with placement. (4) Elevated troponin I level Is this a current diagnosis for this admission?: Yes Plan: Troponins elevated to 0.708; now trending down to 0.598. This is likely a demand mismatch as the patient has bilateral pulmonary emboli. The patient denies chest discomfort/pain, palpitations, and orthopnea. Echocardiogram is pending. Cardiology has been consulted; appreciate their evaluation and recommendations. Continue daily aspirin, atorvastatin 20 mg p.o. nightly, and Eliquis 5 mg p.o. twice daily. (5) Chronic cough Is this a current diagnosis for this admission?: Yes Plan: Unclear etiology; possibly related to bilateral pulmonary emboli. Of note, the patient was on lisinopril prior to being switched to losartan. We will continue holding MYRA and [place] for now. Continue PPI as this may be a symptom of reflux. Continue Mucinex and Claritin. (6) Essential hypertension Is this a current diagnosis for this admission?: Yes Plan: Slightly elevated but appropriate for patient's age. She is not currently receiving any of her home antihypertensive medications; will continue to monitor and resume losartan, hydrochlorothiazide, and furosemide if required. (7) SIRS (systemic inflammatory response syndrome) Is this a current diagnosis for this admission?: Yes Plan: The patient presented with tachypnea and leukocytosis. WBCs are trending up; possibly r/t inflammatory process with acute DVT and bilateral PEs. The patient remains afebrile. Chest x-ray was negative. Urinalysis is pending. Will obtain urine and blood cultures. We will continue to hold on antibiotic therapy at this time as there is not a clear infectious source of leukocytosis. (8) Syncope Qualifiers: Syncope type: unspecified Qualified Code(s): R55 - Syncope and collapse Is this a current diagnosis for this admission?: Yes (9) Cataract Qualifiers: Cataract type: unspecified Laterality: bilateral Qualified Code(s): H26.9 - Unspecified cataract Is this a current diagnosis for this admission?: No Plan: Right cataract extracted 2 months ago, left cataract extraction 3 weeks ago per daughter. Continue patient's home eyedrop medications. - Time Time Spent with patient: 25-34 minutes Medications reviewed and adjusted accordingly: Yes Anticipated discharge: SNF - Short term rehab Within: within 48 hours
--- NOTE | 2017-07-06 18:40 | XCELERA REPORT ---
[address] [address] Transthoracic Echocardiogram Report Name: RAFAELA RHODES Age: 82 yrs Gender: Female : 1935 Patient Status: Inpatient Patient Location: [address] [place] [address] Study Date: 07/06/2017 10:36 AM Height: 65 in Weight: 216 lb BSA: 2.0 m2 Procedure: A complete two-dimensional transthoracic echocardiogram was performed (2D, M-mode, spectral and color flow Doppler). The study was technically difficult with many images being suboptimal in quality. Reason For Study: hypoxia Ordering Physician: TATI MONTES Performed By: Key Doyle Interpretation Summary The left ventricular ejection fraction is normal. Doppler measurements suggest pseudonormalized left ventricular relaxation, which is associated with grade II/IV or mild to moderate diastolic dysfunction There is borderline concentric left ventricular hypertrophy. The left ventricle is grossly normal size. Wall motion cannot be accurately commented on, but no definite regional wall motion abnormalities noted. The right ventricle is mildly dilated. The right atrium is mildly dilated. The left atrial size is normal. There is a mild amount of mitral regurgitation There is no mitral valve stenosis. There is no aortic valve stenosis No aortic regurgitation is present. There is a trace or physiologic amount of tricuspid regurgitation Tricuspid regurgitation jet envelope not well defined to measure RV systolic pressure accurately. The aortic root is not well visualized. The inferior vena cava appeared normal and decreased < 50% with respiration (RAP 10-15 mmHg) Minimal pericardial effusion. MMode/2D Measurements & Calculations RVDd: 3.3 cm LVIDd: 4.8 cmFS: 34.3 % Ao root diam: 3.1 cm IVSd: 1.1 cm LVIDs: 3.1 cmEDV(Teich): 106.6 ml LVPWd: 1.0 cmESV(Teich): 39.2 ml Ao root area: 7.7 cm2 EF(Teich): 63.3 % LA dimension: 3.1 cm LVOT diam: 2.0 cm LVOT area: 3.2 cm2 Doppler Measurements & Calculations MV E max nova: MV P1/2t max nova: Ao V2 max: LV V1 max P.2 cm/sec 80.2 cm/sec 230.8 cm/sec 18.0 mmHg MV A max nova: MV P1/2t: 64.1 msec Ao max PG: LV V1 mean P.2 cm/sec MVA(P1/2t): 3.4 cm2 21.3 mmHg 10.0 mmHg MV E/A: 0.49 MV dec slope: Ao V2 mean: LV V1 max: 366.7 cm/sec2 156.3 cm/sec 212.2 cm/sec Ao mean PG: LV V1 mean: 11.3 mmHg 148.0 cm/sec Ao V2 VTI: 39.1 cmLV V1 VTI: RENY(I,D): 3.9 cm2 47.2 cm RENY(V,D): 3.0 cm2 SV(LVOT): 151.9 ml PA V2 max: PI end-d nova: TR max nova: 83.4 cm/sec 101.8 cm/sec 257.9 cm/sec PA max P.8 mmHg TR max P.6 mmHg Left Ventricle The left ventricle is grossly normal size. There is borderline concentric left ventricular hypertrophy. The left ventricular ejection fraction is normal. Doppler measurements suggest pseudonormalized left ventricular relaxation, which is associated with grade II/IV or mild to moderate diastolic dysfunction. Wall motion cannot be accurately commented on, but no definite regional wall motion abnormalities noted. Right Ventricle The right ventricle is mildly dilated. Right ventricular function cannot be assessed due to poor image quality. Atria The right atrium is mildly dilated. The left atrial size is normal. Interarterial septum not well visualized and not well dopplered. Cannot comment on ASD/PFO presence. Mitral Valve The mitral valve leaflets are sclerotic, but show no functional abnormalities. There is no mitral valve stenosis. There is a mild amount of mitral regurgitation. Aortic Valve The aortic valve is not well visualized secondary to technical limitations. There is no aortic valve stenosis. No aortic regurgitation is present. Tricuspid Valve The tricuspid valve is not well visualized secondary to technical limitations. There is no tricuspid stenosis. There is a trace or physiologic amount of tricuspid regurgitation. Tricuspid regurgitation jet envelope not well defined to measure RV systolic pressure accurately. Pulmonic Valve The pulmonic valve is not well visualized. Great Vessels The aortic root is not well visualized. The inferior vena cava appeared normal and decreased < 50% with respiration (RAP 10-15 mmHg). Effusions Minimal pericardial effusion. : TATI MONTES > Tj Nicole
[2017-07-06] MEDS: ATORVASTATIN CALCIUM 20 MG TABLET PO SCH (22:11)
[2017-07-07 05:14] LABS: ABSOLUTE BASOPHILS # (AUTO) 0.1 10^3/uL (0.0-0.2); ABSOLUTE LYMPHOCYTES (AUTO) 1.7 10^3/uL (0.5-4.7); ABSOLUTE MONOCYTES (AUTO) 1.4 10^3/uL (0.1-1.4); ABSOLUTE NEUT (AUTO) 13.1 10^3/uL (1.7-8.2); BASOPHILS % (AUTO) 0.5 % (0-2); EOSINOPHILS % (AUTO) 0.1 % (0-6); HEMATOCRIT 40.3 % (36.0-47.0); HEMOGLOBIN 13.7 g/dL (12.0-15.5); LYMPHOCYTES % (AUTO) 10.6 % (13-45); MEAN CORPUSCULAR HGB CONC 34.1 g/dL (32.0-36.0); MEAN CORPUSCULAR VOLUME 94 fl (80-97); MONOCYTES % (AUTO) 8.8 % (3-13); PLATELET COUNT 204 10^3/uL (150-450); RED CELL DISTRIBUTION WIDTH 13.5 % (11.5-14.0); TOTAL CELLS COUNTED % (AUTO) 100 %; WHITE BLOOD COUNT 16.4 10^3/uL (4.0-10.5)
[2017-07-07 05:28] LABS: ANION GAP 11 (5-19); BLOOD UREA NITROGEN 40 mg/dL (7-20); CALCIUM 8.8 mg/dL (8.4-10.2); CARBON DIOXIDE 25 mmol/L (22-30); CHLORIDE 105 mmol/L (98-107); GLUCOSE 121 mg/dL (75-110); POTASSIUM 3.8 mmol/L (3.6-5.0)
[2017-07-07] MEDS: LANSOPRAZOLE 30 MG TAB.RAP.DR PO SCH (05:39)
[2017-07-07] MEDS: ASPIRIN 81 MG TABLET, CHEWABLE PO SCH (10:24)
[2017-07-07] MEDS: APIXABAN 5 MG TABLET PO SCH ×2 (10:24→22:06)
[2017-07-07] MEDS: NYSTATIN TOPICAL POWDER 15 GM TP SCH ×2 (10:25→22:07)
--- NOTE | 2017-07-07 15:58 | PDOC PROGRESS REPORT ---
Subjective Progress Note for:: 07/07/17 Subjective:: The patient is an 82-year-old female with a past medical history of CVA with left hemiparesis, hypertension, questionable history of CHF, hypertension, arthritis, depression and anxiety who was admitted on 07/05/17 with acute respiratory failure with hypoxia determined to be related to bilateral pulmonary embolus. The patient is seen on morning rounds. She is found resting in bed comfortably on room air. The patient does continue to require supplemental oxygen while ambulating; the patient is not home O2 dependent. The patient denies headache, dizziness, chest pain, palpitations, dyspnea, orthopnea, lower extremity edema or discomfort. Overall, the patient states that she is feeling quite well today. She has no questions at this time. I did call the patient's daughter and update her on the imaging results; Rt femoral DVT and Bilateral PEs. We also discussed recommendations for the patient to be discharged to SNF for short term rehabilitation. The patient's daughter is in agreement with this recommendation. Reason For Visit: COPD EXACERBATION Physical Exam Vital Signs: Temp Pulse Resp BP Pulse Ox 97.9 F 75 16 145/75 H 92 07/07/17 11:17 07/07/17 11:17 07/07/17 11:17 07/07/17 11:17 07/07/17 11:17 Intake & Output 07/06/17 07/07/17 07/08/17 06:59 06:59 06:59 Intake Total 123 1252 Balance 123 1252 Weight 98.3 kg 92.6 kg General appearance: PRESENT: no acute distress, obese, well-developed, well- nourished Head exam: PRESENT: atraumatic, normocephalic Eye exam: PRESENT: conjunctiva pink, EOMI, PERRLA. ABSENT: scleral icterus Ear exam: PRESENT: normal external ear exam Mouth exam: PRESENT: moist, tongue midline Neck exam: ABSENT: carotid bruit, JVD, lymphadenopathy, thyromegaly Respiratory exam: PRESENT: clear to auscultation claudia, decreased breath sounds - Bibasilar, symmetrical, unlabored. ABSENT: rales, rhonchi, wheezes Cardiovascular exam: PRESENT: RRR, +S1, +S2. ABSENT: diastolic murmur, rubs, systolic murmur Pulses: PRESENT: normal dorsalis pedis pul Vascular exam: PRESENT: normal capillary refill GI/Abdominal exam: PRESENT: normal bowel sounds, soft. ABSENT: distended, guarding, mass, organolmegaly, rebound, tenderness Rectal exam: PRESENT: deferred Extremities exam: PRESENT: full ROM, +1 edema - Bilateral lower extremities, nonpitting. ABSENT: calf tenderness, clubbing, pedal edema, tenderness Neurological exam: PRESENT: alert, awake, oriented to person, oriented to place , oriented to time, oriented to situation, CN II-XII grossly intact, other - Pleasant, forgetful. ABSENT: motor sensory deficit Psychiatric exam: PRESENT: appropriate affect, normal mood. ABSENT: homicidal ideation, suicidal ideation Skin exam: PRESENT: dry, intact, warm. ABSENT: cyanosis, rash Results Laboratory Results: 07/07/17 04:42 07/07/17 04:42 07/07/17 07/07/17 04:42 04:42 WBC 16.4 H RBC 4.30 Hgb 13.7 Hct 40.3 MCV 94 MCH 32.0 MCHC 34.1 RDW 13.5 Plt Count 204 Seg Neutrophils % 80.0 H Lymphocytes % 10.6 L Monocytes % 8.8 Eosinophils % 0.1 Basophils % 0.5 Absolute Neutrophils 13.1 H Absolute Lymphocytes 1.7 Absolute Monocytes 1.4 Absolute Eosinophils 0.0 Absolute Basophils 0.1 Sodium 141.0 Potassium 3.8 Chloride 105 Carbon Dioxide 25 Anion Gap 11 BUN 40 H Creatinine 0.87 Est GFR ( Amer) > 60 Est GFR (Non-Af Amer) > 60 Glucose 121 H Calcium 8.8 07/05/17 07/05/17 07/05/17 02:51 07:26 15:55 Creatine Kinase CK-MB (CK-2) Troponin I 0.022 0.177 Cancelled 07/05/17 07/05/17 07/05/17 16:50 23:15 23:15 Creatine Kinase 86 CK-MB (CK-2) 4.62 H Troponin I 0.482 0.708 07/06/17 07/06/17 07/06/17 05:30 05:30 12:08 Creatine Kinase 84 70 CK-MB (CK-2) 5.47 H Troponin I 0.642 07/06/17 07/07/17 12:08 04:42 Creatine Kinase CK-MB (CK-2) 4.98 H Troponin I 0.598 0.400 Impressions: Head CT 07/04/17 20:09 IMPRESSION: No intracranial hemorrhage or mass effect. Few scattered Areas of low density in the white matter most likely due to chronic micro-vascular ischemic change. No evidence for large vessel acute infarction. EVIDENCE OF ACUTE STROKE: No Chest X-Ray 07/04/17 20:31 IMPRESSION: NO ACUTE RADIOGRAPHIC FINDING IN THE CHEST. Chest/Abdomen CTA 07/05/17 00:00 IMPRESSION: Positive for bilateral pulmonary emboli. Brain MRI with MRA 07/05/17 09:25 IMPRESSION: NORMAL MRA OF THE [place]. Head MRI 07/05/17 09:25 IMPRESSION: No acute abnormality in the brain. EVIDENCE OF ACUTE STROKE: NO. Venous Doppler Study 07/06/17 00:00 IMPRESSION: PARTIALLY OCCLUSIVE THROMBUS IN THE PROXIMAL RIGHT FEMORAL VEIN. NO EVIDENCE OF DEEP VENOUS THROMBOSIS IN THE LEFT LEG. Carotid Doppler Study 07/06/17 09:14 IMPRESSION: NO HEMODYNAMICALLY SIGNIFICANT STENOSIS. Assessment & Plan - Diagnosis (1) Acute respiratory failure with hypoxia Is this a current diagnosis for this admission?: Yes Plan: Improved; patient has now been weaned to room air while at rest, she does qualify for oxygen while ambulatory. Acute respiratory failure with hypoxia noted on admission; tachypnea, PO2 of 75.9 requiring 3-4 L of oxygen. Chest x-ray was negative for acute cardiopulmonary findings. CT of the chest revealed bilateral pulmonary emboli. ProBNP 190. The patient was admitted to [facility] on continuous cardiac telemetry. She is provided supplemental oxygen as needed to maintain oxygen saturations greater than 90% As needed nebulizer treatments are available. Incentive spirometry to bedside; use hourly while awake. OOB/Ambulate twice daily with assistance. (2) Pulmonary embolism Qualifiers: Pulmonary embolism type: other Chronicity: acute Acute cor pulmonale presence: with acute cor pulmonale Qualified Code(s): I26.09 - Other pulmonary embolism with acute cor pulmonale Is this a current diagnosis for this admission?: Yes Plan: The patient was noted to have bilateral pulmonary emboli by CTA of the chest. Venous Doppler study was positive for a partially occlusive thrombus in the proximal right femoral vein. The patient has been placed on Eliquis 5 mg twice daily. (3) DVT, femoral, acute Qualifiers: Laterality: right Qualified Code(s): I82.411 - Acute embolism and thrombosis of right femoral vein Is this a current diagnosis for this admission?: Yes Plan: Venous Dopplers positive for a partially occlusive thrombus of the right proximal femoral vein. Continue Eliquis 5 mg p.o. twice daily. PT/OT have been consulted. The patient will likely benefit from short-term rehabilitation upon discharge; will consult discharge planning to assist with placement. (4) Elevated troponin I level Is this a current diagnosis for this admission?: Yes Plan: Troponins elevated to 0.708; now trending down to 0.400. This is likely a demand mismatch as the patient has bilateral pulmonary emboli. The patient denies chest discomfort/pain, palpitations, and orthopnea. Echocardiogram reveals a normal LVEF, mild to moderate diastolic dysfunction, borderline left ventricular hypertrophy, mildly debilitated right atrium and ventricle, and a mild amount of mitral regurgitation. Cardiology has been consulted; appreciate their evaluation and recommendations. Continue daily aspirin, atorvastatin 20 mg p.o. nightly, and Eliquis 5 mg p.o. twice daily. (5) Chronic cough Is this a current diagnosis for this admission?: Yes Plan: Improved today. Unclear etiology; possibly related to bilateral pulmonary emboli. Of note, the patient was on lisinopril prior to being switched to losartan. We will continue holding MYRA and ARBs for now. Continue PPI as this may be a symptom of reflux. Continue Mucinex and Claritin. (6) Essential hypertension Is this a current diagnosis for this admission?: Yes Plan: Slightly elevated but appropriate for patient's age. She is not currently receiving any of her home antihypertensive medications; will continue to monitor and resume losartan and hydrochlorothiazide. Will resume furosemide 10 mg daily as the patient has some mild bilateral lower extremity edema. (7) SIRS (systemic inflammatory response syndrome) Is this a current diagnosis for this admission?: Yes Plan: The patient presented with tachypnea and leukocytosis. WBCs are stable at 16.4; most likely r/t inflammatory process with acute DVT and bilateral PEs. The patient remains afebrile. Chest x-ray was negative. Urinalysis is pending. Will obtain urine and blood cultures. We will continue to hold on antibiotic therapy at this time as there is not a clear infectious source of leukocytosis. (8) Syncope Qualifiers: Syncope type: unspecified Qualified Code(s): R55 - Syncope and collapse Is this a current diagnosis for this admission?: Yes Plan: The patient presented with a syncopal episode with some seizure-like activity. Evaluation for TIA/CVA is essentially negative. Did find evidence of DVT and bilateral PEs. The patient syncopal episode is likely attributed to the PEs. Fall precautions are in place. I have consulted PT/OT. (9) Cataract Qualifiers: Cataract type: unspecified Laterality: bilateral Qualified Code(s): H26.9 - Unspecified cataract Is this a current diagnosis for this admission?: No Plan: Right cataract extracted 2 months ago, left cataract extraction 3 weeks ago per daughter. Continue patient's home eyedrop medications. - Time Time Spent with patient: 35 or more minutes Anticipated discharge: SNF - Short-term rehabilitation Within: when bed available
[2017-07-07] MEDS: ATORVASTATIN CALCIUM 20 MG TABLET PO SCH (22:06)
[2017-07-07] MEDS ORDERED: GUAIFENESIN 600 MG TABLET.SA PO PRN (22:22)
[2017-07-08 06:05] LABS: HEMATOCRIT 41.5 % (36.0-47.0); HEMOGLOBIN 14.2 g/dL (12.0-15.5); MEAN CORPUSCULAR HEMOGLOBIN 32.2 pg (27.0-33.4); MEAN CORPUSCULAR HGB CONC 34.2 g/dL (32.0-36.0); MEAN CORPUSCULAR VOLUME 94 fl (80-97); PLATELET COUNT 190 10^3/uL (150-450); RED CELL DISTRIBUTION WIDTH 13.6 % (11.5-14.0); WHITE BLOOD COUNT 10.7 10^3/uL (4.0-10.5)
[2017-07-08 06:21] LABS: ANION GAP 8 (5-19); BLOOD UREA NITROGEN 37 mg/dL (7-20); CALCIUM 8.2 mg/dL (8.4-10.2); CARBON DIOXIDE 28 mmol/L (22-30); CHLORIDE 105 mmol/L (98-107); GLUCOSE 95 mg/dL (75-110); POTASSIUM 3.7 mmol/L (3.6-5.0); SODIUM 141.1 mmol/L (137-145)
[2017-07-08] MEDS: LANSOPRAZOLE 30 MG TAB.RAP.DR PO SCH (06:21)
[2017-07-08] MEDS ORDERED: FUROSEMIDE 20 MG TABLET PO SCH (08:00)
[2017-07-08] MEDS: FUROSEMIDE 20 MG TABLET PO SCH (08:10)
[2017-07-08] MEDS: NYSTATIN TOPICAL POWDER 15 GM TP SCH ×2 (09:00→21:23)
[2017-07-08] MEDS: ASPIRIN 81 MG TABLET, CHEWABLE PO SCH (09:00)
[2017-07-08] MEDS: APIXABAN 5 MG TABLET PO SCH ×2 (09:00→21:23)
[2017-07-08] MEDS ORDERED: LOSARTAN POTASSIUM 50 MG TABLET PO ONE (13:00)
--- NOTE | 2017-07-08 13:48 | PDOC PROGRESS REPORT ---
Subjective Progress Note for:: 07/08/17 Subjective:: The patient is an 82-year-old female with a past medical history of CVA with left hemiparesis, hypertension, questionable history of CHF, hypertension, arthritis, depression and anxiety who was admitted on 07/05/17 with acute respiratory failure with hypoxia determined to be related to bilateral pulmonary embolus with Rt femoral DVT. The patient is seen on morning rounds. She is found resting in bed comfortably on room air. The patient does continue to require supplemental oxygen while ambulating; the patient is not home O2 dependent. Per nursing; the patient has had an increase in urinary frequency and incontinence. The patient denies abdominal pain, flank pain, urgency, and dysuria. She does endorse frequency. The patient denies headache, dizziness, chest pain, palpitations, dyspnea, orthopnea, lower extremity edema or discomfort. She has no new questions or concerns at this time. Reason For Visit: COPD EXACERBATION Physical Exam Vital Signs: Temp Pulse Resp BP Pulse Ox 97.8 F 70 18 164/90 H 95 07/08/17 12:10 07/08/17 12:10 07/08/17 12:10 07/08/17 12:10 07/08/17 12:10 Intake & Output 07/07/17 07/08/17 07/09/17 06:59 06:59 06:59 Intake Total 1252 1395 Balance 1252 1395 Weight 92.6 kg 105.3 kg General appearance: PRESENT: no acute distress, morbidly obese, well-developed, well-nourished Head exam: PRESENT: atraumatic, normocephalic Eye exam: PRESENT: conjunctiva pink, EOMI, PERRLA. ABSENT: scleral icterus Ear exam: PRESENT: normal external ear exam Mouth exam: PRESENT: moist, tongue midline Neck exam: ABSENT: carotid bruit, JVD, lymphadenopathy, thyromegaly Respiratory exam: PRESENT: clear to auscultation claudia, decreased breath sounds - Bibasilar, symmetrical, unlabored. ABSENT: rales, rhonchi, wheezes Cardiovascular exam: PRESENT: RRR, +S1, +S2. ABSENT: diastolic murmur, rubs, systolic murmur Pulses: PRESENT: normal dorsalis pedis pul Vascular exam: PRESENT: normal capillary refill GI/Abdominal exam: PRESENT: normal bowel sounds, soft. ABSENT: distended, guarding, mass, organolmegaly, rebound, tenderness Rectal exam: PRESENT: deferred Extremities exam: PRESENT: full ROM, +1 edema - Nonpitting bilateral lower extremities. ABSENT: calf tenderness, clubbing, pedal edema Neurological exam: PRESENT: alert, awake, oriented to person, oriented to place , oriented to time, oriented to situation, CN II-XII grossly intact, other - Forgetful. ABSENT: motor sensory deficit Psychiatric exam: PRESENT: appropriate affect, normal mood. ABSENT: homicidal ideation, suicidal ideation Skin exam: PRESENT: dry, intact, warm. ABSENT: cyanosis, rash Results Laboratory Results: 07/08/17 05:08 07/08/17 05:08 07/08/17 07/08/17 05:08 05:08 WBC 10.7 H RBC 4.40 Hgb 14.2 Hct 41.5 MCV 94 MCH 32.2 MCHC 34.2 RDW 13.6 Plt Count 190 Sodium 141.1 Potassium 3.7 Chloride 105 Carbon Dioxide 28 Anion Gap 8 BUN 37 H Creatinine 0.77 Est GFR ( Amer) > 60 Est GFR (Non-Af Amer) > 60 Glucose 95 Calcium 8.2 L 07/05/17 07/05/17 07/05/17 02:51 07:26 15:55 Creatine Kinase CK-MB (CK-2) Troponin I 0.022 0.177 Cancelled 07/05/17 07/05/17 07/05/17 16:50 23:15 23:15 Creatine Kinase 86 CK-MB (CK-2) 4.62 H Troponin I 0.482 0.708 07/06/17 07/06/17 07/06/17 05:30 05:30 12:08 Creatine Kinase 84 70 CK-MB (CK-2) 5.47 H Troponin I 0.642 07/06/17 07/07/17 12:08 04:42 Creatine Kinase CK-MB (CK-2) 4.98 H Troponin I 0.598 0.400 Impressions: Head CT 07/04/17 20:09 IMPRESSION: No intracranial hemorrhage or mass effect. Few scattered Areas of low density in the white matter most likely due to chronic micro-vascular ischemic change. No evidence for large vessel acute infarction. EVIDENCE OF ACUTE STROKE: No Chest X-Ray 07/04/17 20:31 IMPRESSION: NO ACUTE RADIOGRAPHIC FINDING IN THE CHEST. Chest/Abdomen CTA 07/05/17 00:00 IMPRESSION: Positive for bilateral pulmonary emboli. Brain MRI with MRA 07/05/17 09:25 IMPRESSION: NORMAL MRA OF THE [place] [facility] [place]. Head MRI 07/05/17 09:25 IMPRESSION: No acute abnormality in the brain. EVIDENCE OF ACUTE STROKE: NO. Venous Doppler Study 07/06/17 00:00 IMPRESSION: PARTIALLY OCCLUSIVE THROMBUS IN THE PROXIMAL RIGHT FEMORAL VEIN. NO EVIDENCE OF DEEP VENOUS THROMBOSIS IN THE LEFT LEG. Carotid Doppler Study 07/06/17 09:14 IMPRESSION: NO HEMODYNAMICALLY SIGNIFICANT STENOSIS. Assessment & Plan - Diagnosis (1) Acute respiratory failure with hypoxia Is this a current diagnosis for this admission?: Yes Plan: Improved; patient has now been weaned to room air while at rest, she does qualify for oxygen while ambulatory. Acute respiratory failure with hypoxia noted on admission; tachypnea, PO2 of 75.9 requiring 3-4 L of oxygen. Chest x-ray was negative for acute cardiopulmonary findings. CT of the chest revealed bilateral pulmonary emboli. ProBNP 190. The patient was admitted to [facility] on continuous cardiac telemetry. She is provided supplemental oxygen as needed to maintain oxygen saturations greater than 90% As needed nebulizer treatments are available. Incentive spirometry to bedside; use hourly while awake. OOB/Ambulate twice daily with assistance. (2) Pulmonary embolism Qualifiers: Pulmonary embolism type: other Chronicity: acute Acute cor pulmonale presence: with acute cor pulmonale Qualified Code(s): I26.09 - Other pulmonary embolism with acute cor pulmonale Is this a current diagnosis for this admission?: Yes Plan: The patient was noted to have bilateral pulmonary emboli by CTA of the chest. Venous Doppler study was positive for a partially occlusive thrombus in the proximal right femoral vein. The patient has been placed on Eliquis 5 mg twice daily. (3) DVT, femoral, acute Qualifiers: Laterality: right Qualified Code(s): I82.411 - Acute embolism and thrombosis of right femoral vein Is this a current diagnosis for this admission?: Yes Plan: Venous Dopplers positive for a partially occlusive thrombus of the right proximal femoral vein. Continue Eliquis 5 mg p.o. twice daily. PT/OT have been consulted. The patient will likely benefit from short-term rehabilitation upon discharge; will consult discharge planning to assist with placement. (4) Elevated troponin I level Is this a current diagnosis for this admission?: Yes Plan: Troponins elevated to 0.708; now trending down to 0.400. This is likely a demand mismatch as the patient has bilateral pulmonary emboli. The patient denies chest discomfort/pain, palpitations, and orthopnea. Echocardiogram reveals a normal LVEF, mild to moderate diastolic dysfunction, borderline left ventricular hypertrophy, mildly debilitated right atrium and ventricle, and a mild amount of mitral regurgitation. Cardiology has been consulted; appreciate their evaluation and recommendations. Continue daily aspirin, atorvastatin 20 mg p.o. nightly, and Eliquis 5 mg p.o. twice daily. (5) Chronic cough Is this a current diagnosis for this admission?: Yes Plan: Improved. Unclear etiology; possibly related to bilateral pulmonary emboli. Continue PPI as this may be a symptom of reflux. Continue Mucinex and Claritin. Incentive spirometry to bedside. Encourage mobility. As needed nebulizer treatments for shortness of breath. (6) Essential hypertension Is this a current diagnosis for this admission?: Yes Plan: Slightly elevated but appropriate for patient's age. Continue furosemide 10 mg daily; this is a decrease from her baseline of 30 mg daily. Resume patient's home dose losartan and HCTZ. (7) SIRS (systemic inflammatory response syndrome) Is this a current diagnosis for this admission?: Yes Plan: The patient presented with tachypnea and leukocytosis. WBCs trending down; most likely r/t inflammatory process with acute DVT and bilateral PEs. The patient remains afebrile. Chest x-ray was negative. Urinalysis is pending. Will obtain urine and blood cultures. We will continue to hold on antibiotic therapy at this time as there is not a clear infectious source of leukocytosis. (8) Syncope Qualifiers: Syncope type: unspecified Qualified Code(s): R55 - Syncope and collapse Is this a current diagnosis for this admission?: Yes Plan: The patient presented with a syncopal episode with some seizure-like activity. Evaluation for TIA/CVA is essentially negative. Did find evidence of DVT and bilateral PEs. The patient syncopal episode is likely attributed to the PEs. Fall precautions are in place. I have consulted PT/OT. (9) Cataract Qualifiers: Cataract type: unspecified Laterality: bilateral Qualified Code(s): H26.9 - Unspecified cataract Is this a current diagnosis for this admission?: No Plan: Right cataract extracted 2 months ago, left cataract extraction 3 weeks ago per daughter. Continue patient's home eyedrop medications. (10) Urinary frequency Is this a current diagnosis for this admission?: Yes Plan: Will assess urinalysis. Increased urinary frequency today is most likely to resuming Lasix yesterday. - Time Time Spent with patient: 25-34 minutes Medications reviewed and adjusted accordingly: Yes Anticipated discharge: SNF - Short-term rehabilitation Within: when bed available
[2017-07-08] MEDS: ATORVASTATIN CALCIUM 20 MG TABLET PO SCH (21:22)
[2017-07-08] MEDS: LOSARTAN POTASSIUM 50 MG TABLET PO SCH (21:23)
[2017-07-09 05:06] LABS: HEMOGLOBIN 14.4 g/dL (12.0-15.5); MEAN CORPUSCULAR HEMOGLOBIN 32.2 pg (27.0-33.4); MEAN CORPUSCULAR HGB CONC 34.2 g/dL (32.0-36.0); MEAN CORPUSCULAR VOLUME 94 fl (80-97); PLATELET COUNT 169 10^3/uL (150-450); RED BLOOD COUNT 4.46 10^6/uL (3.72-5.28); RED CELL DISTRIBUTION WIDTH 13.5 % (11.5-14.0); WHITE BLOOD COUNT 12.2 10^3/uL (4.0-10.5)
[2017-07-09 05:26] LABS: ANION GAP 8 (5-19); BLOOD UREA NITROGEN 30 mg/dL (7-20); CALCIUM 8.2 mg/dL (8.4-10.2); CARBON DIOXIDE 29 mmol/L (22-30); CHLORIDE 106 mmol/L (98-107); GLUCOSE 111 mg/dL (75-110); POTASSIUM 3.9 mmol/L (3.6-5.0); SODIUM 142.6 mmol/L (137-145)
[2017-07-09] MEDS: LANSOPRAZOLE 30 MG TAB.RAP.DR PO SCH (05:41)
[2017-07-09] MEDS: HYDROCHLOROTHIAZIDE 25 MG TABLET PO SCH (08:27)
[2017-07-09] MEDS: FUROSEMIDE 20 MG TABLET PO SCH (08:28)
--- NOTE | 2017-07-09 09:25 | PDOC PROGRESS REPORT ---
Subjective Progress Note for:: 07/08/17 Subjective:: Patient seems to be doing better with gradual improvement. Pt is denying any chest arm or neck discomfort. Patient denying any PND, orthopnea. Patient denied any sustained palpitations, dizziness, syncope, near syncope. Patient denying any fever chills. Patient denying any other significant discomfort. Patient is maintaining sinus rhythm. Review of systems: Rest review of systems negative. Medications: Medications have been reviewed. Reason For Visit: COPD EXACERBATION Physical Exam Vital Signs: Temp Pulse Resp BP Pulse Ox 97.3 F 79 20 142/79 H 98 07/08/17 20:01 07/08/17 20:01 07/08/17 20:01 07/08/17 20:01 07/08/17 20:01 Intake & Output 07/07/17 07/08/17 07/09/17 06:59 06:59 06:59 Intake Total 1252 1395 504 Balance 1252 1395 504 Weight 92.6 kg 105.3 kg Results Laboratory Results: 07/08/17 05:08 07/08/17 05:08 07/08/17 07/08/17 05:08 05:08 WBC 10.7 H RBC 4.40 Hgb 14.2 Hct 41.5 MCV 94 MCH 32.2 MCHC 34.2 RDW 13.6 Plt Count 190 Sodium 141.1 Potassium 3.7 Chloride 105 Carbon Dioxide 28 Anion Gap 8 BUN 37 H Creatinine 0.77 Est GFR ( Amer) > 60 Est GFR (Non-Af Amer) > 60 Glucose 95 Calcium 8.2 L 07/05/17 07/05/17 07/05/17 02:51 07:26 15:55 Creatine Kinase CK-MB (CK-2) Troponin I 0.022 0.177 Cancelled 07/05/17 07/05/17 07/05/17 16:50 23:15 23:15 Creatine Kinase 86 CK-MB (CK-2) 4.62 H Troponin I 0.482 0.708 07/06/17 07/06/17 07/06/17 05:30 05:30 12:08 Creatine Kinase 84 70 CK-MB (CK-2) 5.47 H Troponin I 0.642 07/06/17 07/07/17 12:08 04:42 Creatine Kinase CK-MB (CK-2) 4.98 H Troponin I 0.598 0.400 Impressions: Head CT 07/04/17 20:09 IMPRESSION: No intracranial hemorrhage or mass effect. Few scattered Areas of low density in the white matter most likely due to chronic micro-vascular ischemic change. No evidence for large vessel acute infarction. EVIDENCE OF ACUTE STROKE: No Chest X-Ray 07/04/17 20:31 IMPRESSION: NO ACUTE RADIOGRAPHIC FINDING IN THE CHEST. Chest/Abdomen CTA 07/05/17 00:00 IMPRESSION: Positive for bilateral pulmonary emboli. Brain MRI with MRA 07/05/17 09:25 IMPRESSION: NORMAL MRA OF THE [place]. Head MRI 07/05/17 09:25 IMPRESSION: No acute abnormality in the brain. EVIDENCE OF ACUTE STROKE: NO. Venous Doppler Study 07/06/17 00:00 IMPRESSION: PARTIALLY OCCLUSIVE THROMBUS IN THE PROXIMAL RIGHT FEMORAL VEIN. NO EVIDENCE OF DEEP VENOUS THROMBOSIS IN THE LEFT LEG. Carotid Doppler Study 07/06/17 09:14 IMPRESSION: NO HEMODYNAMICALLY SIGNIFICANT STENOSIS. Assessment & Plan - Diagnosis (1) Pulmonary embolism Qualifiers: Pulmonary embolism type: other Chronicity: acute Acute cor pulmonale presence: with acute cor pulmonale Qualified Code(s): I26.09 - Other pulmonary embolism with acute cor pulmonale Is this a current diagnosis for this admission?: Yes (2) Elevated troponin I level Is this a current diagnosis for this admission?: Yes (3) Acute respiratory failure with hypoxia Is this a current diagnosis for this admission?: Yes (4) COPD (chronic obstructive pulmonary disease) Qualifiers: COPD type: unspecified COPD Qualified Code(s): J44.9 - Chronic obstructive pulmonary disease, unspecified Is this a current diagnosis for this admission?: Yes (5) Syncope Qualifiers: Syncope type: unspecified Qualified Code(s): R55 - Syncope and collapse Is this a current diagnosis for this admission?: Yes - Notes Notes: 2 D Echo results reviewed. LV and RV function seems well preserved. However both RA and RV are noted to be dilated. IVC pressure noted to be high. Pulmonary embolism: Patient noted to have bilateral significant pulmonary embolism. This was noted on CTA of the chest. Patient also has troponin I leak which tends to imply acute cor pulmonale from pulmonary embolism and RV strain. This was confirmed by 2D echocardiogram but would recommend just medical management with anticoagulation being continued. At this point will recommend chronic anticoagulation. Elevated troponin I: Most likely related to acute pulmonary embolism. Patient does have coronary calcification therefore does have CAD but current troponin I elevation can be explained by pulmonary embolism. Acute hypoxic respiratory failure: Related to pulmonary embolism on top of COPD. NSTEMI: Related to supply demand mismatch and metabolic reason. COPD: Currently stable. Syncope: Related to pulmonary embolism. Recommend cardiac monitoring. Do not feel a ischemia evaluation is indicated at this time. - Time Time with patient: Greater than 35 minutes - CODE STATUS was discussed, patient remains full code. Surrogate decision-maker unchanged. Multiple medical problems were addressed. More than 50% of the time spent coordinating care, discussing management plans with involved caregivers. Management plans discussed with involved personnels. Medical decision making was of moderate to high complexity, patient's has multiple comorbidities.
[2017-07-09] MEDS: APIXABAN 5 MG TABLET PO SCH ×2 (09:46→22:52)
[2017-07-09] MEDS: CITALOPRAM HYDROBROMIDE 20 MG TABLET PO SCH (09:46)
[2017-07-09] MEDS: ASPIRIN 81 MG TABLET, CHEWABLE PO SCH (09:46)
[2017-07-09] MEDS: LOSARTAN POTASSIUM 50 MG TABLET PO SCH ×2 (09:47→22:53)
[2017-07-09] MEDS: LORATADINE 10 MG TABLET PO SCH (09:48)
[2017-07-09] MEDS: NYSTATIN TOPICAL POWDER 15 GM TP SCH ×2 (09:50→22:53)
[2017-07-09] MEDS ORDERED: (PENDING PHARMACY ID) (Citalopram Hydrobromide [Citalopram Hbr] 20 MG) PO SCH (10:00)
[2017-07-09] MEDS ORDERED: FUROSEMIDE 20 MG TABLET PO ONE (13:00)
[2017-07-09] MEDS: ACETAMINOPHEN 325 MG TABLET PO PRN (13:39)
--- NOTE | 2017-07-09 14:08 | PDOC TRANSFER SUMMARY ---
General - Admit/Disc Date/PCP Admission Date/Primary Care Provider: 07/05/17 01:52 Discharge Date: 07/09/17 - Discharge Diagnosis (1) Acute respiratory failure with hypoxia Is this a current diagnosis for this admission?: Yes Summary: Secondary to bilateral pulmonary emboli. Chest x-ray was negative for acute cardiopulmonary findings. CT of the chest revealed bilateral pulmonary emboli. ProBNP 190. The patient was admitted to [facility] on continuous cardiac telemetry. She was supported with supplemental oxygen, scheduled and as needed nebulizer treatments , and incentive spirometry. She is now maintaining room air oxygen saturations while awake and at rest, but does require 2 lpm during ambulation and while sleeping. (2) Pulmonary embolism Is this a current diagnosis for this admission?: Yes Summary: The patient was noted to have bilateral pulmonary emboli by CTA of the chest. Venous Doppler study was positive for a partially occlusive thrombus in the proximal right femoral vein. The patient has been placed on Eliquis 5 mg twice daily. (3) DVT, femoral, acute Is this a current diagnosis for this admission?: Yes Summary: Venous Dopplers positive for a partially occlusive thrombus of the right proximal femoral vein. She has no leg edema, erythema, or tenderness . Continue Eliquis 5 mg p.o. twice daily. (4) Elevated troponin I level Is this a current diagnosis for this admission?: Yes Summary: Troponins elevated to 0.708; and is now trending down. This is likely a demand mismatch as the patient has bilateral pulmonary emboli. The patient denies chest discomfort/pain, palpitations, and orthopnea. Echocardiogram reveals a normal LVEF, mild to moderate diastolic dysfunction, borderline left ventricular hypertrophy, mildly debilitated right atrium and ventricle, and a mild amount of mitral regurgitation. Cardiology was consulted; does not feel that an ischemia evaluation (stress testing) is indicated at this time. (5) Chronic cough Is this a current diagnosis for this admission?: Yes Summary: Improved. Patient was supported with PPI, as this may be a symptom of reflux, and her home dose Mucinex and Claritin. (6) Essential hypertension Is this a current diagnosis for this admission?: Yes Summary: Adequate control with home dose lasix, losartan, and HCTZ. (7) SIRS (systemic inflammatory response syndrome) Is this a current diagnosis for this admission?: Yes (8) Syncope Is this a current diagnosis for this admission?: Yes Summary: The patient presented with a syncopal episode with some seizure-like activity. Evaluation for TIA/CVA is essentially negative. Did find evidence of DVT and bilateral PEs. The patient syncopal episode is attributed to the PEs. Head CT was negative for acute stroke; few scattered areas of low density in the white matter most likely due to chronic microvascular ischemic changes were noted. Carotid Doppler are negative for hemodynamically significant stenosis. (9) Cataract Is this a current diagnosis for this admission?: No Summary: Right cataract extracted 2 months ago, left cataract extraction 3 weeks ago per daughter. Recommend continuing the patient's home eyedrop medications. (10) Urinary frequency Is this a current diagnosis for this admission?: Yes Summary: Will assess urinalysis. Increased urinary frequency today is most likely to resuming home-dosed Lasix. - Additional Information Resuscitation Status: Full Code Home Medications: Citalopram Hydrobromide [Citalopram HBr] 20 mg PO DAILY 07/05/17 Furosemide [Lasix 20 mg Tablet] 30 mg PO QAM 07/05/17 Gatifloxacin [Zymaxid] 1 drop OD ASDIR PRN 07/05/17 Hydrochlorothiazide [Hydrodiuril 25 mg Tablet] 25 mg PO QAM 07/05/17 Hydrocodone/Acetaminophen [Hydrocodon-Acetaminophen 5-325] 1 tab PO Q6HP PRN Ketoconazole [Nizoral] 1 applic TP DAILY 07/05/17 Loratadine [Claritin 10 mg Tablet] 10 mg PO DAILY 07/05/17 Losartan Potassium [Cozaar 50 mg Tablet] 50 mg PO Q12 07/05/17 Nystatin [Mycostatin Topical Powder 15 gm] 1 applic TP BID 07/05/17 Prednisolone Acetate [Pred Forte] 1 drop OS BID MDD THROUGH 07-08-17 07/05/17 Prednisolone Acetate [Pred Forte] 1 drop OS DAILY MDD STARTING 07/09 ENDING 07/1507/05/17 History of Present Illness Admission Date/PCP: 07/05/17 01:52 History of Present Illness: Per H&P by Dr. Hernandez: RAFAELA RHODES is a 82 year old female with history of CVA with left hemiparesis, hypertension and questionable history of CHF was admitted with above-mentioned complaints. Most of the history was obtained from the ED physician/notes and her daughter at bedside. The patient apparently used to live in [place] and she relocated to [place] to live with her daughter. According to her daughter, the patient was at her baseline after having dinner last night. She then had a bowel movement and as her daughter was helping her sit down, she noticed that her mother was stiff with her eyes wide open staring into space, no incontinence, tongue biting or frothing at the mouth. The patient's son-in-law noticed that her right arm was shaking. The episode lasted about 2 minutes after which the patient became very diaphoretic and started complaining of being nauseous and not feeling well. She also seemed somewhat confused so her daughter called EMS. Upon arrival, EMS found the patient hypoxic and started her on 2 L nasal cannula per ED note. There was no report of any fever but the patient has chronic cough with possibly yellowish sputum but no sick contact. She always has chills. She is up-to- date with her flu vaccine. The patient denied any chest or abdominal pain but she has been having soft, nonbloody stool lately per daughter. She is incontinent of urine at times but she denied any dysuria or hematuria. She had any new focal weakness or numbness. She is usually able to ambulate using a walker. In the ED, her temperature was not recorded, heart rate 93, respiratory rate 24 , blood pressure 125/82 with oxygen saturation of 90% on room air (improved to 94% on 3 L nasal cannula). Her WBC was 13.9 with hemoglobin of 16.4. Her initial troponin was negative and her proBNP was 190. A Chest x-ray and a CAT scan of the head were done both of which were unremarkable for any acute findings. She received DuoNeb treatment 1, Albuterol neb 2 and 125 mg IV Solu -Medrol. Physical Exam Vital Signs: Temp Pulse Resp BP Pulse Ox 98.4 F 91 26 H 169/84 H 97 07/09/17 07:38 07/09/17 07:38 07/09/17 07:38 07/09/17 07:38 07/09/17 07:38 Intake & Output 07/08/17 07/09/17 07/10/17 06:59 06:59 06:59 Intake Total 1395 1204 Balance 1395 1204 Weight 105.3 kg 105.6 kg General appearance: PRESENT: no acute distress, morbidly obese, well-developed, well-nourished Head exam: PRESENT: atraumatic, normocephalic Eye exam: PRESENT: conjunctiva pink, EOMI, PERRLA. ABSENT: scleral icterus Ear exam: PRESENT: normal external ear exam Mouth exam: PRESENT: moist, tongue midline Neck exam: ABSENT: carotid bruit, JVD, lymphadenopathy, thyromegaly Respiratory exam: PRESENT: clear to auscultation claudia, decreased breath sounds - Bibasilar, symmetrical, unlabored. ABSENT: rales, rhonchi, wheezes Cardiovascular exam: PRESENT: RRR, +S1, +S2. ABSENT: diastolic murmur, rubs, systolic murmur Pulses: PRESENT: normal dorsalis pedis pul Vascular exam: PRESENT: normal capillary refill GI/Abdominal exam: PRESENT: normal bowel sounds, soft. ABSENT: distended, guarding, mass, organolmegaly, rebound, tenderness Rectal exam: PRESENT: deferred Extremities exam: PRESENT: full ROM, +1 edema - Bilateral, nonpitting. ABSENT: calf tenderness, clubbing, pedal edema Neurological exam: PRESENT: alert, awake, oriented to person, oriented to place , oriented to time, oriented to situation, CN II-XII grossly intact. ABSENT: motor sensory deficit Psychiatric exam: PRESENT: appropriate affect, normal mood. ABSENT: homicidal ideation, suicidal ideation Skin exam: PRESENT: dry, intact, warm. ABSENT: cyanosis, rash Results Laboratory Results: 07/09/17 04:38 07/09/17 04:38 07/09/17 07/09/17 04:38 04:38 WBC 12.2 H RBC 4.46 Hgb 14.4 Hct 42.0 MCV 94 MCH 32.2 MCHC 34.2 RDW 13.5 Plt Count 169 Sodium 142.6 Potassium 3.9 Chloride 106 Carbon Dioxide 29 Anion Gap 8 BUN 30 H Creatinine 0.72 Est GFR ( Amer) > 60 Est GFR (Non-Af Amer) > 60 Glucose 111 H Calcium 8.2 L 07/05/17 07/05/17 07/05/17 02:51 07:26 15:55 Creatine Kinase CK-MB (CK-2) Troponin I 0.022 0.177 Cancelled 07/05/17 07/05/17 07/05/17 16:50 23:15 23:15 Creatine Kinase 86 CK-MB (CK-2) 4.62 H Troponin I 0.482 0.708 07/06/17 07/06/17 07/06/17 05:30 05:30 12:08 Creatine Kinase 84 70 CK-MB (CK-2) 5.47 H Troponin I 0.642 07/06/17 07/07/17 12:08 04:42 Creatine Kinase CK-MB (CK-2) 4.98 H Troponin I 0.598 0.400 Impressions: Head CT 07/04/17 20:09 IMPRESSION: No intracranial hemorrhage or mass effect. Few scattered Areas of low density in the white matter most likely due to chronic micro-vascular ischemic change. No evidence for large vessel acute infarction. EVIDENCE OF ACUTE STROKE: No Chest X-Ray 07/04/17 20:31 IMPRESSION: NO ACUTE RADIOGRAPHIC FINDING IN THE CHEST. Chest/Abdomen CTA 07/05/17 00:00 IMPRESSION: Positive for bilateral pulmonary emboli. Brain MRI with MRA 07/05/17 09:25 IMPRESSION: NORMAL MRA OF THE [place] OF [place]. Head MRI 07/05/17 09:25 IMPRESSION: No acute abnormality in the brain. EVIDENCE OF ACUTE STROKE: NO. Venous Doppler Study 07/06/17 00:00 IMPRESSION: PARTIALLY OCCLUSIVE THROMBUS IN THE PROXIMAL RIGHT FEMORAL VEIN. NO EVIDENCE OF DEEP VENOUS THROMBOSIS IN THE LEFT LEG. Carotid Doppler Study 07/06/17 09:14 IMPRESSION: NO HEMODYNAMICALLY SIGNIFICANT STENOSIS. Transfer Plan - Disposition Transfer Plan: Discharge to Detention Facility for short-term rehabilitation. - Time Spent with Patient Time spent with patient: Less than 30 Minutes Qualifiers - * PATIENT BEING DISCHARGED WITH ANY OF THE FOLLOWING DIAGNOSIS: No Plan Discharge Plan: Discharge to penitentiary facility for short-term rehabilitation. Continue chronic anticoagulation with Eliquis.
[2017-07-09 16:27] LABS: APPEARANCE,URINE CLEAR; BILIRUBIN,URINE NEGATIVE (NEGATIVE); COLOR,URINE STRAW; GLUCOSE, URINE NEGATIVE (NEGATIVE); KETONES,URINE NEGATIVE (NEGATIVE); LEUKOCYTE ESTERASE,URINE NEGATIVE (NEGATIVE); NITRITE,URINE NEGATIVE (NEGATIVE); PROTEIN,URINE NEGATIVE (NEGATIVE); URINE SPECIFIC GRAVITY 1.006; UROBILINOGEN,URINE NEGATIVE mg/dL (<2.0)
--- NOTE | 2017-07-09 20:34 | PDOC PROGRESS REPORT ---
Subjective Progress Note for:: 07/09/17 Subjective:: Patient seen on morning rounds. Patient seems to be doing better with gradual improvement. Pt is denying any chest arm or neck discomfort. Patient denying any PND, orthopnea. Patient denied any sustained palpitations, dizziness, syncope, near syncope. Patient denying any fever chills. Patient denying any other significant discomfort. Patient is maintaining sinus rhythm. Review of systems: Rest review of systems negative. Medications: Medications have been reviewed. Reason For Visit: COPD EXACERBATION Physical Exam Vital Signs: Temp Pulse Resp BP Pulse Ox 98.2 F 94 28 H 119/57 L 94 07/09/17 15:59 07/09/17 15:59 07/09/17 15:59 07/09/17 15:59 07/09/17 15:59 Intake & Output 07/08/17 07/09/17 07/10/17 06:59 06:59 06:59 Intake Total 1395 1204 854 Balance 1395 1204 854 Weight 105.3 kg 105.6 kg Exam: GENERAL: well-nourished and in no acute distress. Patient is alert but oriented 2. HEAD: Atraumatic, normocephalic. EYES: Pupils equal round and reactive to light, extraocular movements intact, sclera anicteric, conjunctiva are normal. ENT: TMs normal, nares patent, oropharynx clear without exudates. Moist mucous membranes. No oral ulcerations or bleeding gums noted NECK: supple without lymphadenopathy or JVD. Trachea is central. No cervical or axillary lymphadenopathy noted. Carotids are 2+ LUNGS: Breath sounds bibasilar fine crackles at bases. No significant dullness noted. CHEST: Palpation of chest wall shows no significant chest wall tenderness. HEART: [place] [employer], No PSH, 2/6 MAYELA aortic area, 1/6 rdz systolic murmur mitral area, rubs or gallops. ABDOMEN: Soft, no significant tenderness appreciated, normoactive bowel sounds. No guarding, no rebound. No rigidity noted . No masses appreciated. EXTREMITIES: Pedal pulses are 1-2+, no calf tenderness noted, Trace + pedal edema noted. No clubbing or cyanosis. NEUROLOGICAL: Patient is alert and is able to move all 4 extremities on command. PSYCH: Patient does not want to be disturbed but seems to have normal mood. Judgment not checked. SKIN: No significant ecchymosis, rash, ulcerations or signs of pruritus noted. MUSCULOSKELETAL EXAM: No significant joint swelling noted. Results Laboratory Results: 07/09/17 04:38 07/09/17 04:38 07/09/17 07/09/17 07/09/17 04:38 04:38 15:55 WBC 12.2 H RBC 4.46 Hgb 14.4 Hct 42.0 MCV 94 MCH 32.2 MCHC 34.2 RDW 13.5 Plt Count 169 Sodium 142.6 Potassium 3.9 Chloride 106 Carbon Dioxide 29 Anion Gap 8 BUN 30 H Creatinine 0.72 Est GFR ( Amer) > 60 Est GFR (Non-Af Amer) > 60 Glucose 111 H Calcium 8.2 L Urine Color STRAW Urine Appearance CLEAR Urine pH 5.0 Ur Specific [place] 1.006 Urine Protein NEGATIVE Urine Glucose (UA) NEGATIVE Urine Ketones NEGATIVE Urine Blood NEGATIVE Urine Nitrite NEGATIVE Ur Leukocyte Esterase NEGATIVE Urine WBC (Auto) 0 Urine RBC (Auto) 0 07/05/17 07/05/17 07/05/17 02:51 07:26 15:55 Creatine Kinase CK-MB (CK-2) Troponin I 0.022 0.177 Cancelled 07/05/17 07/05/17 07/05/17 16:50 23:15 23:15 Creatine Kinase 86 CK-MB (CK-2) 4.62 H Troponin I 0.482 0.708 07/06/17 07/06/17 07/06/17 05:30 05:30 12:08 Creatine Kinase 84 70 CK-MB (CK-2) 5.47 H Troponin I 0.642 07/06/17 07/07/17 12:08 04:42 Creatine Kinase CK-MB (CK-2) 4.98 H Troponin I 0.598 0.400 Impressions: Head CT 07/04/17 20:09 IMPRESSION: No intracranial hemorrhage or mass effect. Few scattered Areas of low density in the white matter most likely due to chronic micro-vascular ischemic change. No evidence for large vessel acute infarction. EVIDENCE OF ACUTE STROKE: No Chest X-Ray 07/04/17 20:31 IMPRESSION: NO ACUTE RADIOGRAPHIC FINDING IN THE CHEST. Chest/Abdomen CTA 07/05/17 00:00 IMPRESSION: Positive for bilateral pulmonary emboli. Brain MRI with MRA 07/05/17 09:25 IMPRESSION: NORMAL MRA OF THE [place]. Head MRI 07/05/17 09:25 IMPRESSION: No acute abnormality in the brain. EVIDENCE OF ACUTE STROKE: NO. Venous Doppler Study 07/06/17 00:00 IMPRESSION: PARTIALLY OCCLUSIVE THROMBUS IN THE PROXIMAL RIGHT FEMORAL VEIN. NO EVIDENCE OF DEEP VENOUS THROMBOSIS IN THE LEFT LEG. Carotid Doppler Study 07/06/17 09:14 IMPRESSION: NO HEMODYNAMICALLY SIGNIFICANT STENOSIS. Assessment & Plan - Diagnosis (1) Pulmonary embolism Qualifiers: Pulmonary embolism type: other Chronicity: acute Acute cor pulmonale presence: with acute cor pulmonale Qualified Code(s): I26.09 - Other pulmonary embolism with acute cor pulmonale Is this a current diagnosis for this admission?: Yes (2) Elevated troponin I level Is this a current diagnosis for this admission?: Yes (3) Acute respiratory failure with hypoxia Is this a current diagnosis for this admission?: Yes (4) COPD (chronic obstructive pulmonary disease) Qualifiers: COPD type: unspecified COPD Qualified Code(s): J44.9 - Chronic obstructive pulmonary disease, unspecified Is this a current diagnosis for this admission?: Yes (5) Syncope Qualifiers: Syncope type: unspecified Qualified Code(s): R55 - Syncope and collapse Is this a current diagnosis for this admission?: Yes - Notes Notes: Patient's all telemetry strips were reviewed. She was noted to have no significant arrhythmias. Troponin I elevation was related to bilateral pulmonary embolism. Do not feel patient needs ischemia workup. 2D echocardiogram results were reviewed. At this point will sign off. Please reconsult if needed. - Time Time with patient: 15-25 minutes - CODE STATUS was discussed, patient remains full code. Surrogate decision-maker unchanged. Multiple medical problems were addressed. More than 50% of the time spent coordinating care, discussing management plans with involved caregivers. Management plans discussed with involved personnels. Medical decision making was of moderate to high complexity , patient's has multiple comorbidities. Medications reviewed and adjusted accordingly: Yes
--- NOTE | 2017-07-09 20:37 | PDOC PROGRESS REPORT ---
Subjective Progress Note for:: 07/07/17 Subjective:: Patient seems to be doing better with gradual improvement. Pt is denying any chest arm or neck discomfort. Patient denying any PND, orthopnea. Patient denied any sustained palpitations, dizziness, syncope, near syncope. Patient denying any fever chills. Patient denying any other significant discomfort. Patient is maintaining sinus rhythm. Review of systems: Rest review of systems negative. Medications: Medications have been reviewed. Reason For Visit: COPD EXACERBATION Physical Exam Vital Signs: Temp Pulse Resp BP Pulse Ox 97.7 F 84 16 136/80 H 93 07/07/17 15:30 07/07/17 19:00 07/07/17 15:30 07/07/17 15:30 07/07/17 15:30 Intake & Output 07/06/17 07/07/17 07/08/17 06:59 06:59 06:59 Intake Total 123 1252 1192 Balance 123 1252 1192 Weight 98.3 kg 92.6 kg Exam: GENERAL: well-nourished and in no acute distress. Alert and oriented x2 HEAD: Atraumatic, normocephalic. EYES: Pupils equal round and reactive to light, extraocular movements intact, sclera anicteric, conjunctiva are normal. ENT: TMs normal, nares patent, oropharynx clear without exudates. Moist mucous membranes. No oral ulcerations or bleeding gums noted NECK: supple without lymphadenopathy. Trachea is central. No cervical or axillary lymphadenopathy noted. Carotids are 2+, JVD WNL LUNGS: Respiration seems nonlabored, no significant accessory muscle action noted. Breath sounds clear to auscultation bilaterally and equal noted. No wheezes rales or rhonchi noted. No significant dullness noted on percussion. CHEST: Palpation of the chest wall shows no significant chest wall tenderness. HEART: [place] CLIENT SUPPORT CONSULTANT, No PSH, 1/6 MAYELA aortic area, 1/6 rdz systolic murmur mitral area, no rubs, no gallops. ABDOMEN: Soft, no significant tenderness appreciated, normoactive bowel sounds. No guarding, no rebound. No rigidity noted . No masses appreciated. EXTREMITIES: Pedal pulses are 1-2+, no calf tenderness noted. No clubbing or cyanosis. negative pedal edema noted NEUROLOGICAL: Focused neurological exam showed no significant neurologic deficit. Normal speech, patient is noted to move all 4 extremities equally well. PSYCH: Normal mood, normal affect. Judgment and insight not checked. SKIN: No significant ecchymosis, skin is noted to be warm. MUSCULOSKELETAL EXAM: No significant acute joint swelling noted. Results Laboratory Results: 07/07/17 04:42 07/07/17 04:42 07/07/17 07/07/17 04:42 04:42 WBC 16.4 H RBC 4.30 Hgb 13.7 Hct 40.3 MCV 94 MCH 32.0 MCHC 34.1 RDW 13.5 Plt Count 204 Seg Neutrophils % 80.0 H Lymphocytes % 10.6 L Monocytes % 8.8 Eosinophils % 0.1 Basophils % 0.5 Absolute Neutrophils 13.1 H Absolute Lymphocytes 1.7 Absolute Monocytes 1.4 Absolute Eosinophils 0.0 Absolute Basophils 0.1 Sodium 141.0 Potassium 3.8 Chloride 105 Carbon Dioxide 25 Anion Gap 11 BUN 40 H Creatinine 0.87 Est GFR ( Amer) > 60 Est GFR (Non-Af Amer) > 60 Glucose 121 H Calcium 8.8 07/05/17 07/05/17 07/05/17 02:51 07:26 15:55 Creatine Kinase CK-MB (CK-2) Troponin I 0.022 0.177 Cancelled 07/05/17 07/05/17 07/05/17 16:50 23:15 23:15 Creatine Kinase 86 CK-MB (CK-2) 4.62 H Troponin I 0.482 0.708 07/06/17 07/06/17 07/06/17 05:30 05:30 12:08 Creatine Kinase 84 70 CK-MB (CK-2) 5.47 H Troponin I 0.642 07/06/17 07/07/17 12:08 04:42 Creatine Kinase CK-MB (CK-2) 4.98 H Troponin I 0.598 0.400 EKG Comments: Telemetry strips shows sinus rhythm without any sustained tachycardia or bradycardia. Impressions: Head CT 07/04/17 20:09 IMPRESSION: No intracranial hemorrhage or mass effect. Few scattered Areas of low density in the white matter most likely due to chronic micro-vascular ischemic change. No evidence for large vessel acute infarction. EVIDENCE OF ACUTE STROKE: No Chest X-Ray 07/04/17 20:31 IMPRESSION: NO ACUTE RADIOGRAPHIC FINDING IN THE CHEST. Chest/Abdomen CTA 07/05/17 00:00 IMPRESSION: Positive for bilateral pulmonary emboli. Brain MRI with MRA 07/05/17 09:25 IMPRESSION: NORMAL MRA OF THE [place]. Head MRI 07/05/17 09:25 IMPRESSION: No acute abnormality in the brain. EVIDENCE OF ACUTE STROKE: NO. Venous Doppler Study 07/06/17 00:00 IMPRESSION: PARTIALLY OCCLUSIVE THROMBUS IN THE PROXIMAL RIGHT FEMORAL VEIN. NO EVIDENCE OF DEEP VENOUS THROMBOSIS IN THE LEFT LEG. Carotid Doppler Study 07/06/17 09:14 IMPRESSION: NO HEMODYNAMICALLY SIGNIFICANT STENOSIS. Assessment & Plan - Diagnosis (1) Pulmonary embolism Qualifiers: Pulmonary embolism type: other Chronicity: acute Acute cor pulmonale presence: with acute cor pulmonale Qualified Code(s): I26.09 - Other pulmonary embolism with acute cor pulmonale Is this a current diagnosis for this admission?: Yes (2) Elevated troponin I level Is this a current diagnosis for this admission?: Yes (3) Acute respiratory failure with hypoxia Is this a current diagnosis for this admission?: Yes (4) COPD (chronic obstructive pulmonary disease) Qualifiers: COPD type: unspecified COPD Qualified Code(s): J44.9 - Chronic obstructive pulmonary disease, unspecified Is this a current diagnosis for this admission?: Yes (5) Syncope Qualifiers: Syncope type: unspecified Qualified Code(s): R55 - Syncope and collapse Is this a current diagnosis for this admission?: Yes - Notes Notes: Pulmonary embolism: Patient noted to have bilateral significant pulmonary embolism. This was noted on CTA of the chest. Patient also has troponin I leak which tends to imply acute cor pulmonale from pulmonary embolism and RV strain. 2D echo was reviewed and seems to confirm this. Patient does have enlarged right atrium and right ventricle but LVEF and RVEF seems relatively well-preserved. There is some increased artery pressure noted based on IVC dilatation. Elevated troponin I: Most likely related to acute pulmonary embolism. Patient does have coronary calcification therefore does have CAD but current troponin I elevation can be explained by pulmonary embolism. Acute hypoxic respiratory failure: Related to pulmonary embolism on top of COPD. NSTEMI: Related to supply demand mismatch and metabolic reason. COPD: Currently stable. Syncope: Related to pulmonary embolism. Recommend cardiac monitoring. Do not feel a ischemia evaluation is indicated at this time. 2D echo results were reviewed. - Time Time with patient: Greater than 35 minutes - CODE STATUS was discussed, patient remains full code. Surrogate decision-maker unchanged. Multiple medical problems were addressed. More than 50% of the time spent coordinating care, discussing management plans with involved caregivers. Management plans discussed with involved personnels. Medical decision making was of moderate to high complexity, patient's has multiple comorbidities. Medications reviewed and adjusted accordingly: Yes
[2017-07-09] MEDS: ATORVASTATIN CALCIUM 20 MG TABLET PO SCH (22:52)
[2017-07-10] MEDS: LANSOPRAZOLE 30 MG TAB.RAP.DR PO SCH (05:49)
[2017-07-10 06:03] LABS: HEMATOCRIT 44.9 % (36.0-47.0); HEMOGLOBIN 15.4 g/dL (12.0-15.5); MEAN CORPUSCULAR HEMOGLOBIN 32.2 pg (27.0-33.4); MEAN CORPUSCULAR HGB CONC 34.4 g/dL (32.0-36.0); MEAN CORPUSCULAR VOLUME 94 fl (80-97); PLATELET COUNT 168 10^3/uL (150-450); RED CELL DISTRIBUTION WIDTH 13.4 % (11.5-14.0); WHITE BLOOD COUNT 9.4 10^3/uL (4.0-10.5)
[2017-07-10] MEDS: HYDROCHLOROTHIAZIDE 25 MG TABLET PO SCH (07:43)
[2017-07-10] MEDS ORDERED: FUROSEMIDE 20 MG TABLET PO SCH (08:00)
[2017-07-10] MEDS: ASPIRIN 81 MG TABLET, CHEWABLE PO SCH (09:11)
[2017-07-10] MEDS: NYSTATIN TOPICAL POWDER 15 GM TP SCH ×2 (09:12→21:37)
[2017-07-10] MEDS: LOSARTAN POTASSIUM 50 MG TABLET PO SCH ×2 (09:12→21:39)
[2017-07-10] MEDS: LORATADINE 10 MG TABLET PO SCH (09:12)
[2017-07-10] MEDS: APIXABAN 5 MG TABLET PO SCH ×2 (09:12→21:36)
[2017-07-10] MEDS: CITALOPRAM HYDROBROMIDE 20 MG TABLET PO SCH (09:12)
[2017-07-10] MEDS: PREDNISOLONE ACETATE 1% OPH SUSP 5 ML OS SCH (09:19)
--- NOTE | 2017-07-10 12:12 | PDOC PROGRESS REPORT ---
Subjective Progress Note for:: 07/10/17 Subjective:: The patient is an 82-year-old female with a past medical history of CVA with left hemiparesis, hypertension, questionable history of CHF, hypertension, arthritis, depression and anxiety who was admitted on 07/05/17 with acute respiratory failure with hypoxia determined to be related to bilateral pulmonary embolus with Rt femoral DVT. The patient is seen on morning rounds. She is found resting in bed comfortably on room air. The patient does continue to require supplemental oxygen while ambulating; the patient is not home O2 dependent. She is sleeping but wakes easily when I say her name. She denies discomfort today. When asked about getting out of bed, she reports that she is just tired and wants to rest. Per nursing, the patient has declined multiple times to get out of bed for ambulation and meals. She also continues to have multiple episodes of urinary voids while in bed despite being continent and able to ambulate to bedside commode with minimal assistance. She denies headache, dizziness, chest pain, palpitations, dyspnea, orthopnea, lower extremity edema or discomfort. She has no new questions or concerns at this time. Nursing are asked to notify me when family arrives so that they may be given an update. Reason For Visit: COPD EXACERBATION Physical Exam Vital Signs: Temp Pulse Resp BP Pulse Ox 98.8 F 84 26 H 143/77 H 98 07/10/17 07:39 07/10/17 07:39 07/10/17 07:39 07/10/17 07:39 07/10/17 07:39 Intake & Output 07/09/17 07/10/17 07/11/17 06:59 06:59 06:59 Intake Total 1204 857 Balance 1204 857 Weight 105.6 kg 107.5 kg General appearance: PRESENT: no acute distress, obese, well-developed, well- nourished. ABSENT: cooperative - Pleasant but uncooperative Head exam: PRESENT: atraumatic, normocephalic Eye exam: PRESENT: conjunctiva pink, EOMI, PERRLA. ABSENT: scleral icterus Ear exam: PRESENT: normal external ear exam Mouth exam: PRESENT: moist, tongue midline Neck exam: ABSENT: carotid bruit, JVD, lymphadenopathy, thyromegaly Respiratory exam: PRESENT: clear to auscultation claudia, decreased breath sounds - Bibasilar; poor inspiratory effort, symmetrical, unlabored. ABSENT: rales, rhonchi, wheezes Cardiovascular exam: PRESENT: RRR, +S1, +S2. ABSENT: diastolic murmur, rubs, systolic murmur Pulses: PRESENT: normal dorsalis pedis pul Vascular exam: PRESENT: normal capillary refill GI/Abdominal exam: PRESENT: normal bowel sounds, soft. ABSENT: distended, guarding, mass, organolmegaly, rebound, tenderness Rectal exam: PRESENT: deferred Extremities exam: PRESENT: full ROM. ABSENT: calf tenderness, clubbing, pedal edema Neurological exam: PRESENT: alert, awake, oriented to person, oriented to place , oriented to time, oriented to situation, CN II-XII grossly intact, other - Forgetful. ABSENT: motor sensory deficit Psychiatric exam: PRESENT: appropriate affect, normal mood. ABSENT: homicidal ideation, suicidal ideation Skin exam: PRESENT: dry, intact, warm. ABSENT: cyanosis, rash Results Laboratory Results: 07/10/17 05:18 07/09/17 04:38 07/09/17 07/10/17 15:55 05:18 WBC 9.4 RBC 4.80 Hgb 15.4 Hct 44.9 MCV 94 MCH 32.2 MCHC 34.4 RDW 13.4 Plt Count 168 Urine Color STRAW Urine Appearance CLEAR Urine pH 5.0 Ur Specific Central 1.006 Urine Protein NEGATIVE Urine Glucose (UA) NEGATIVE Urine Ketones NEGATIVE Urine Blood NEGATIVE Urine Nitrite NEGATIVE Ur Leukocyte Esterase NEGATIVE Urine WBC (Auto) 0 Urine RBC (Auto) 0 07/05/17 07/05/17 07/05/17 02:51 07:26 15:55 Creatine Kinase CK-MB (CK-2) Troponin I 0.022 0.177 Cancelled 07/05/17 07/05/17 07/05/17 16:50 23:15 23:15 Creatine Kinase 86 CK-MB (CK-2) 4.62 H Troponin I 0.482 0.708 07/06/17 07/06/17 07/06/17 05:30 05:30 12:08 Creatine Kinase 84 70 CK-MB (CK-2) 5.47 H Troponin I 0.642 07/06/17 07/07/17 12:08 04:42 Creatine Kinase CK-MB (CK-2) 4.98 H Troponin I 0.598 0.400 Impressions: Head CT 07/04/17 20:09 IMPRESSION: No intracranial hemorrhage or mass effect. Few scattered Areas of low density in the white matter most likely due to chronic micro-vascular ischemic change. No evidence for large vessel acute infarction. EVIDENCE OF ACUTE STROKE: No Chest X-Ray 07/04/17 20:31 IMPRESSION: NO ACUTE RADIOGRAPHIC FINDING IN THE CHEST. Chest/Abdomen CTA 07/05/17 00:00 IMPRESSION: Positive for bilateral pulmonary emboli. Brain MRI with MRA 07/05/17 09:25 IMPRESSION: NORMAL MRA OF THE [place]. Head MRI 07/05/17 09:25 IMPRESSION: No acute abnormality in the brain. EVIDENCE OF ACUTE STROKE: NO. Venous Doppler Study 07/06/17 00:00 IMPRESSION: PARTIALLY OCCLUSIVE THROMBUS IN THE PROXIMAL RIGHT FEMORAL VEIN. NO EVIDENCE OF DEEP VENOUS THROMBOSIS IN THE LEFT LEG. Carotid Doppler Study 07/06/17 09:14 IMPRESSION: NO HEMODYNAMICALLY SIGNIFICANT STENOSIS. Assessment & Plan - Diagnosis (1) Acute respiratory failure with hypoxia Is this a current diagnosis for this admission?: Yes Plan: Improved; patient has now been weaned to room air while at rest, she does qualify for oxygen while ambulatory. Acute respiratory failure with hypoxia noted on admission; tachypnea, PO2 of 75.9 requiring 3-4 L of oxygen. Chest x-ray was negative for acute cardiopulmonary findings. CT of the chest revealed bilateral pulmonary emboli. ProBNP 190. The patient was admitted to [facility] on continuous cardiac telemetry. She is provided supplemental oxygen as needed to maintain oxygen saturations greater than 90% As needed nebulizer treatments are available. Incentive spirometry to bedside; use hourly while awake. OOB/Ambulate three times daily with assistance. (2) Pulmonary embolism Qualifiers: Pulmonary embolism type: other Chronicity: acute Acute cor pulmonale presence: with acute cor pulmonale Qualified Code(s): I26.09 - Other pulmonary embolism with acute cor pulmonale Is this a current diagnosis for this admission?: Yes Plan: The patient was noted to have bilateral pulmonary emboli by CTA of the chest. Venous Doppler study was positive for a partially occlusive thrombus in the proximal right femoral vein. The patient has been placed on Eliquis 5 mg twice daily. (3) DVT, femoral, acute Qualifiers: Laterality: right Qualified Code(s): I82.411 - Acute embolism and thrombosis of right femoral vein Is this a current diagnosis for this admission?: Yes Plan: Venous Dopplers positive for a partially occlusive thrombus of the right proximal femoral vein. Continue Eliquis 5 mg p.o. twice daily. PT/OT have been consulted. The patient will benefit from short-term rehabilitation upon discharge; will consult discharge planning to assist with placement. (4) Elevated troponin I level Is this a current diagnosis for this admission?: Yes Plan: Troponin elevated to 0.708; now trending down to 0.400. This is likely a demand mismatch as the patient has bilateral pulmonary emboli. The patient denies chest discomfort/pain, palpitations, and orthopnea. Echocardiogram reveals a normal LVEF, mild to moderate diastolic dysfunction, borderline left ventricular hypertrophy, mildly debilitated right atrium and ventricle, and a mild amount of mitral regurgitation. Cardiology has been consulted; appreciate their evaluation and recommendations. Continue daily aspirin, atorvastatin 20 mg p.o. nightly, and Eliquis 5 mg p.o. twice daily. (5) Chronic cough Is this a current diagnosis for this admission?: Yes Plan: Resolved. Unclear etiology; possibly worsened with bilateral pulmonary emboli. Continue PPI as this may be a symptom of reflux. Continue Mucinex and Claritin. Incentive spirometry to bedside. Encourage mobility. As needed nebulizer treatments for shortness of breath. (6) Essential hypertension Is this a current diagnosis for this admission?: Yes Plan: Slightly elevated but appropriate for patient's age. Continue patient's home dose lasix, losartan and HCTZ. (7) SIRS (systemic inflammatory response syndrome) Is this a current diagnosis for this admission?: Yes Plan: The patient presented with tachypnea and leukocytosis. WBCs now normal though continues to have a low grade fever; most likely r/t inflammatory process with acute DVT and bilateral PEs. Chest x-ray was negative. Urinalysis is negative Blood cultures have no growth to date. No indications for antibiotics at this time. (8) Syncope Qualifiers: Syncope type: unspecified Qualified Code(s): R55 - Syncope and collapse Is this a current diagnosis for this admission?: Yes Plan: The patient presented with a syncopal episode with some seizure-like activity. Evaluation for TIA/CVA is essentially negative. Did find evidence of DVT and bilateral PEs. The patient syncopal episode is likely attributed to the PEs. Fall precautions are in place. I have consulted PT/OT. (9) Cataract Qualifiers: Cataract type: unspecified Laterality: bilateral Qualified Code(s): H26.9 - Unspecified cataract Is this a current diagnosis for this admission?: No Plan: Right cataract extracted 2 months ago, left cataract extraction 3 weeks ago per daughter. Continue patient's home eyedrop medications. (10) Urinary frequency Is this a current diagnosis for this admission?: Yes Plan: Urinalysis is negative. Increased urinary frequency is secondary to resuming lasix. (11) Fever Is this a current diagnosis for this admission?: Yes Plan: Low-grade fever; likely r/t inflammation in setting of PE/DVT. Will monitor. WBCs are normal. Urinalysis negative. Lung sounds clear, no sputum production. - Time Time Spent with patient: 15-24 minutes Anticipated discharge: Acute Rehab Within: when bed available - Plan Summary Plan Summary: Patient had received bed offer yesterday. Unfortunately, it was found that the patient had a claim against her insurance and so offer had to be placed on hold. Patient is medically stable for discharge once placement arrangements are made.
[2017-07-10] MEDS ORDERED: LORAZEPAM INJ 2 MG/1 ML VIAL ONE (17:03)
[2017-07-10] MEDS ORDERED: LORAZEPAM INJ 2 MG/1 ML VIAL IM PRN ×2 (17:33→18:00)
[2017-07-10] MEDS ORDERED: LEVETIRACETAM 500 MG TABLET PO ONE (18:00)
--- NOTE | 2017-07-10 18:31 | Progress Note ---
Provider Note Provider Note: Patient had a witnessed seizure while up to the commode today. She was assisted /carried back to bed. When I arrived she was awake, but clearly postictal. No distress. Daughter at the bedside. Further history elicited from her daughter revealed that she had been weaned off of her Neurontin, that she had been on long-term for neuropathic pain, 2 weeks ago. She had been having unexplained movement problems since moving down here from [place]. Unclear if it had been going on when she lived alone in [place]. In any case her physician here weaned her off of her Celexa which had no effect, and then off her Neurontin which also appeared to have no effect. She was weaned off of Neurontin over 3 weeks with decreasing doses at one-week intervals. About a week later she had what the family felt was a seizure, and was brought to the emergency department. She has had nothing resembling this seizure since, though now there is a lot of second guessing about whether her change in mental status was post ictal with unwitnessed seizures. Apparently, nursing is been unable to get an IV in her since arrival. I do not feel this is an emergency that requires a central line. I will load her with a gram of Keppra orally, and start her on 500 mg twice daily. I gave orders for IM Ativan if she had another seizure. I will also institute seizure precautions , put her on due to neurochecks for the next 24 hours, and get an EEG. Physician is to be called immediately if she has a recurrent seizure. This was discussed in depth with nursing and the patient's daughter.
[2017-07-10] MEDS: ATORVASTATIN CALCIUM 20 MG TABLET PO SCH (21:36)
[2017-07-10] MEDS: LEVETIRACETAM 500 MG TABLET PO SCH (21:37)
[2017-07-11 05:45] LABS: ALBUMIN 3.1 g/dL (3.5-5.0); ANION GAP 9 (5-19); BLOOD UREA NITROGEN 39 mg/dL (7-20); CALCIUM 8.3 mg/dL (8.4-10.2); CARBON DIOXIDE 34 mmol/L (22-30); CHLORIDE 95 mmol/L (98-107); GLUCOSE 126 mg/dL (75-110); PHOSPHORUS 3.7 mg/dL (2.5-4.5); POTASSIUM 3.1 mmol/L (3.6-5.0); SODIUM 138.1 mmol/L (137-145)
[2017-07-11 05:50] LABS: CREATINE KINASE < 20 U/L (30-135)
[2017-07-11] MEDS: LANSOPRAZOLE 30 MG TAB.RAP.DR PO SCH (06:07)
[2017-07-11] MEDS ORDERED: FUROSEMIDE 20 MG TABLET PO SCH (07:01)
[2017-07-11] MEDS ORDERED: POTASSIUM CHLORIDE 10 MEQ TABLET.SA PO ONE ×2 (07:01→11:23)
[2017-07-11] MEDS: FUROSEMIDE 20 MG TABLET PO SCH (07:56)
[2017-07-11] MEDS: HYDROCHLOROTHIAZIDE 25 MG TABLET PO SCH (07:56)
[2017-07-11] MEDS: LOSARTAN POTASSIUM 50 MG TABLET PO SCH ×2 (11:06→22:27)
[2017-07-11] MEDS: NYSTATIN TOPICAL POWDER 15 GM TP SCH ×2 (11:06→22:27)
[2017-07-11] MEDS: PREDNISOLONE ACETATE 1% OPH SUSP 5 ML OS SCH (11:06)
[2017-07-11] MEDS: LEVETIRACETAM 500 MG TABLET PO SCH ×2 (11:07→22:27)
[2017-07-11] MEDS: APIXABAN 5 MG TABLET PO SCH ×2 (11:07→22:27)
[2017-07-11] MEDS: LORATADINE 10 MG TABLET PO SCH (11:07)
--- NOTE | 2017-07-11 11:27 | PDOC PROGRESS REPORT ---
Subjective Progress Note for:: 07/11/17 Subjective:: States she feels a little loopy today. No particular complaints. Reason For Visit: COPD EXACERBATION Physical Exam Vital Signs: Temp Pulse Resp BP Pulse Ox 97.9 F 81 18 117/55 L 93 07/11/17 08:16 07/11/17 08:16 07/11/17 08:16 07/11/17 08:16 07/11/17 08:16 Intake & Output 07/10/17 07/11/17 07/12/17 06:59 06:59 06:59 Intake Total 857 336 Balance 857 336 Weight 236 lb 15.951 oz 232 lb 2.348 oz General appearance: PRESENT: no acute distress, obese Respiratory exam: PRESENT: clear to auscultation claudia Cardiovascular exam: PRESENT: RRR GI/Abdominal exam: PRESENT: soft Neurological exam: PRESENT: awake, other - Slow processing, but cogent Psychiatric exam: PRESENT: flat affect Skin exam: PRESENT: warm Results Laboratory Results: 07/10/17 05:18 07/11/17 04:31 07/11/17 07/11/17 04:31 04:31 Sodium 138.1 Potassium 3.1 L Chloride 95 L Carbon Dioxide 34 H Anion Gap 9 BUN 39 H Creatinine 1.18 Est GFR ( Amer) 53 L Est GFR (Non-Af Amer) 44 L Glucose 126 H Calcium 8.3 L Phosphorus 3.7 Magnesium 2.0 Albumin 3.1 L TSH 0.91 07/05/17 07/05/17 07/05/17 02:51 07:26 15:55 Creatine Kinase CK-MB (CK-2) Troponin I 0.022 0.177 Cancelled 07/05/17 07/05/17 07/05/17 16:50 23:15 23:15 Creatine Kinase 86 CK-MB (CK-2) 4.62 H Troponin I 0.482 0.708 07/06/17 07/06/17 07/06/17 05:30 05:30 12:08 Creatine Kinase 84 70 CK-MB (CK-2) 5.47 H Troponin I 0.642 07/06/17 07/07/17 07/11/17 12:08 04:42 04:31 Creatine Kinase < 20 L CK-MB (CK-2) 4.98 H Troponin I 0.598 0.400 Impressions: Head CT 07/04/17 20:09 IMPRESSION: No intracranial hemorrhage or mass effect. Few scattered Areas of low density in the white matter most likely due to chronic micro-vascular ischemic change. No evidence for large vessel acute infarction. EVIDENCE OF ACUTE STROKE: No Chest X-Ray 07/04/17 20:31 IMPRESSION: NO ACUTE RADIOGRAPHIC FINDING IN THE CHEST. Chest/Abdomen CTA 07/05/17 00:00 IMPRESSION: Positive for bilateral pulmonary emboli. Brain MRI with MRA 07/05/17 09:25 IMPRESSION: NORMAL MRA OF THE [place]. Head MRI 07/05/17 09:25 IMPRESSION: No acute abnormality in the brain. EVIDENCE OF ACUTE STROKE: NO. Venous Doppler Study 07/06/17 00:00 IMPRESSION: PARTIALLY OCCLUSIVE THROMBUS IN THE PROXIMAL RIGHT FEMORAL VEIN. NO EVIDENCE OF DEEP VENOUS THROMBOSIS IN THE LEFT LEG. Carotid Doppler Study 07/06/17 09:14 IMPRESSION: NO HEMODYNAMICALLY SIGNIFICANT STENOSIS. Assessment & Plan - Diagnosis (1) Seizure Is this a current diagnosis for this admission?: Yes Plan: Apparently as part of her outpatient workup her Neurontin was stopped about a week before she had with the family felt was a seizure. She had a witnessed seizure yesterday when accompanied by 2 nurses were helping her to the bathroom. I started her on Keppra last night. No further seizure activity has been noted. She has been on every 2 neurochecks. I will DC those. Her sedation from the Keppra should tolerate out over the next few days. I will get an EEG tomorrow, and after that she can proceed to rehab. (2) Acute respiratory failure with hypoxia Is this a current diagnosis for this admission?: Yes Plan: Due to PE. Wean oxygen as tolerated. Still on 1-1/2 L. Had not been on oxygen prior to presentation. (3) Pulmonary embolism Qualifiers: Pulmonary embolism type: other Chronicity: acute Acute cor pulmonale presence: with acute cor pulmonale Qualified Code(s): I26.09 - Other pulmonary embolism with acute cor pulmonale Is this a current diagnosis for this admission?: Yes Plan: Continue Eliquis
[2017-07-11] MEDS: CITALOPRAM HYDROBROMIDE 20 MG TABLET PO SCH (22:27)
[2017-07-11] MEDS: ATORVASTATIN CALCIUM 20 MG TABLET PO SCH (22:27)
[2017-07-12] MEDS: ACETAMINOPHEN 325 MG TABLET PO PRN ×2 (01:57→18:08)
[2017-07-12] MEDS: LANSOPRAZOLE 30 MG TAB.RAP.DR PO SCH (06:34)
[2017-07-12] MEDS: FUROSEMIDE 20 MG TABLET PO SCH (08:40)
[2017-07-12] MEDS: LEVETIRACETAM 500 MG TABLET PO SCH ×2 (10:16→22:52)
[2017-07-12] MEDS: NYSTATIN TOPICAL POWDER 15 GM TP SCH (10:16)
[2017-07-12] MEDS: LORATADINE 10 MG TABLET PO SCH (10:16)
[2017-07-12] MEDS: APIXABAN 5 MG TABLET PO SCH ×2 (10:16→22:52)
[2017-07-12] MEDS: LOSARTAN POTASSIUM 50 MG TABLET PO SCH (10:16)
[2017-07-12] MEDS: POTASSIUM CHLORIDE 10 MEQ TABLET.SA PO SCH (10:16)
--- NOTE | 2017-07-12 10:29 | PDOC PROGRESS REPORT ---
Subjective Progress Note for:: 07/12/17 Subjective:: Seen during EEG. No current complaints. Staff reports no problems. Reason For Visit: COPD EXACERBATION Physical Exam Vital Signs: Temp Pulse Resp BP Pulse Ox 97.6 F 73 18 114/55 L 93 07/12/17 07:27 07/12/17 07:27 07/12/17 07:27 07/12/17 07:27 07/12/17 07:27 Intake & Output 07/11/17 07/12/17 07/13/17 06:59 06:59 06:59 Intake Total 336 822 Balance 336 822 Weight 232 lb 2.348 oz 228 lb 6.382 oz General appearance: PRESENT: no acute distress, cooperative, obese Respiratory exam: PRESENT: clear to auscultation claudia Cardiovascular exam: PRESENT: RRR GI/Abdominal exam: PRESENT: soft Neurological exam: PRESENT: alert Psychiatric exam: PRESENT: appropriate affect Skin exam: PRESENT: warm Results Laboratory Results: 07/10/17 05:18 07/11/17 04:31 07/06/17 17:50 Blood Blood Culture - Final NO GROWTH IN 5 DAYS 07/06/17 17:15 Blood Blood Culture - Final NO GROWTH IN 5 DAYS 07/05/17 07/05/17 07/05/17 02:51 07:26 15:55 Creatine Kinase CK-MB (CK-2) Troponin I 0.022 0.177 Cancelled 07/05/17 07/05/17 07/05/17 16:50 23:15 23:15 Creatine Kinase 86 CK-MB (CK-2) 4.62 H Troponin I 0.482 0.708 07/06/17 07/06/17 07/06/17 05:30 05:30 12:08 Creatine Kinase 84 70 CK-MB (CK-2) 5.47 H Troponin I 0.642 07/06/17 07/07/17 07/11/17 12:08 04:42 04:31 Creatine Kinase < 20 L CK-MB (CK-2) 4.98 H Troponin I 0.598 0.400 Impressions: Head CT 07/04/17 20:09 IMPRESSION: No intracranial hemorrhage or mass effect. Few scattered Areas of low density in the white matter most likely due to chronic micro-vascular ischemic change. No evidence for large vessel acute infarction. EVIDENCE OF ACUTE STROKE: No Chest X-Ray 07/04/17 20:31 IMPRESSION: NO ACUTE RADIOGRAPHIC FINDING IN THE CHEST. Chest/Abdomen CTA 07/05/17 00:00 IMPRESSION: Positive for bilateral pulmonary emboli. Brain MRI with MRA 07/05/17 09:25 IMPRESSION: NORMAL MRA OF THE [place]. Head MRI 07/05/17 09:25 IMPRESSION: No acute abnormality in the brain. EVIDENCE OF ACUTE STROKE: NO. Venous Doppler Study 07/06/17 00:00 IMPRESSION: PARTIALLY OCCLUSIVE THROMBUS IN THE PROXIMAL RIGHT FEMORAL VEIN. NO EVIDENCE OF DEEP VENOUS THROMBOSIS IN THE LEFT LEG. Carotid Doppler Study 07/06/17 09:14 IMPRESSION: NO HEMODYNAMICALLY SIGNIFICANT STENOSIS. Assessment & Plan - Diagnosis (1) Seizure Is this a current diagnosis for this admission?: Yes Plan: Apparently as part of her outpatient workup her Neurontin was stopped about a week before she had with the family felt was a seizure. She had a witnessed seizure yesterday when accompanied by 2 nurses were helping her to the bathroom. I started her on Keppra. No further seizure activity has been noted. Her sedation from the Keppra should tolerate out over the next few days. Okay to proceed to rehab when bed available (2) Acute respiratory failure with hypoxia Is this a current diagnosis for this admission?: Yes Plan: Due to PE. Wean oxygen as tolerated. Still on 1-1/2 L. Had not been on oxygen prior to presentation. (3) Pulmonary embolism Qualifiers: Pulmonary embolism type: other Chronicity: acute Acute cor pulmonale presence: with acute cor pulmonale Qualified Code(s): I26.09 - Other pulmonary embolism with acute cor pulmonale Is this a current diagnosis for this admission?: Yes Plan: Continue Eliquis
[2017-07-12] MEDS: PREDNISOLONE ACETATE 1% OPH SUSP 5 ML OS SCH (12:25)
[2017-07-12] MEDS ORDERED: NORMAL SALINE 1000 ML 1,000 ML IV ONE (21:00)
[2017-07-12 21:17] LABS: HEMATOCRIT 40.9 % (36.0-47.0); MEAN CORPUSCULAR HGB CONC 34.2 g/dL (32.0-36.0); MEAN CORPUSCULAR VOLUME 94 fl (80-97); PLATELET COUNT 187 10^3/uL (150-450); RED BLOOD COUNT 4.37 10^6/uL (3.72-5.28); RED CELL DISTRIBUTION WIDTH 13.7 % (11.5-14.0)
[2017-07-12 21:21] LABS: ANION GAP 13 (5-19); BLOOD UREA NITROGEN 44 mg/dL (7-20); CALCIUM 8.5 mg/dL (8.4-10.2); CARBON DIOXIDE 29 mmol/L (22-30); CHLORIDE 95 mmol/L (98-107); CREATINE KINASE 47 U/L (30-135); GLUCOSE 223 mg/dL (75-110); POTASSIUM 3.4 mmol/L (3.6-5.0); SODIUM 136.7 mmol/L (137-145)
[2017-07-12 21:22] LABS: WHITE BLOOD COUNT 28.4 10^3/uL (4.0-10.5)
[2017-07-12 21:32] LABS: ABSOLUTE MONOCYTES # (MANUAL) 1.4 10^3/uL (0.1-1.4); BASOPHILS % (MANUAL) 0 % (0-2); EOSINOPHILS % (MANUAL) 0 % (0-6); LYMPHOCYTES % (MANUAL) 0 % (13-45); MONOCYTES % (MANUAL) 5 % (3-13); SEGMENTED NEUTROPHILS % (MAN) 95 % (42-78); TOTAL CELLS COUNTED 100
[2017-07-12 21:33] LABS: PLATELET COMMENT ADEQUATE; RBC MORPHOLOGY COMMENT NORMO-CYTIC/CHROMIC; TOXIC GRANULATION 1+; TOXIC VACUOLATION PRESENT
[2017-07-12 21:34] LABS: CREATINE KINASE MB 1.48 ng/mL (<4.55)
[2017-07-12 21:39] LABS: TROPONIN I 0.446 ng/mL
--- NOTE | 2017-07-12 22:27 | EKG REPORT ---
SEVERITY:- BORDERLINE ECG - SINUS RHYTHM BORDERLINE LEFT AXIS DEVIATION BORDERLINE PROLONGED QT INTERVAL : Confirmed by: Tj Nicole 12-Jul-2017 22:26:28
[2017-07-12] MEDS ORDERED: APIXABAN 5 MG TABLET ONE (22:33)
[2017-07-12] MEDS: ATORVASTATIN CALCIUM 20 MG TABLET PO SCH (22:52)
[2017-07-12] MEDS: CITALOPRAM HYDROBROMIDE 20 MG TABLET PO SCH (22:52)
[2017-07-13] MEDS: ACETAMINOPHEN 325 MG TABLET PO PRN ×3 (01:09→15:11)
[2017-07-13 04:08] LABS: CREATINE KINASE MB 1.81 ng/mL (<4.55)
[2017-07-13 04:15] LABS: TROPONIN I 0.793 ng/mL
[2017-07-13] MEDS: LANSOPRAZOLE 30 MG TAB.RAP.DR PO SCH (06:17)
--- NOTE | 2017-07-13 08:39 | EEG PRO FEE REPORT ---
EEG INTERPRETATION PATIENT NAME: RAFAELA RHODES ROOM#: [id number] ORDER#: [id number] DATE OF STUDY: 07/12/2017 : 1935 REFERRING MD: Srini Coughlin MD DIAGNOSIS: New onset seizures REPORT The background activity is mostly 6 Hz theta throughout although there appears to be at times some further posterior slowing that is bilateral and synchronous. This gets down 4-5 Hz maybe; there is frequent bursts of motion artifact making the record appear somewhat irritable but no clear phase reversals or epileptiform discharges are identified. FINAL IMPRESSION: It is generally slow although not that slow considering the stated age of 82 [address] it as probably within normal limits showing no definite signs of seizures. INTERPRETING PHYSICIAN: KETURAH GRAVES M.D. /: MTEFFT TT: [id number] ID: [id number] /: [id number] TD: [id number] JOB: [id number] cc:Kamron SKINNER M.D. >
[2017-07-13] MEDS ORDERED: POTASSI CL 20 MEQ/D5-1/4NS 1L 1000 ML IV PRN (08:40)
[2017-07-13] MEDS ORDERED: VANCOMYCIN HCL 0 MG in DEXTROSE 5%-WATER 250 ML IV NR (09:15)
--- NOTE | 2017-07-13 09:16 | RADIOLOGY REPORT (SQ) ---
EXAM DESCRIPTION: CHEST SINGLE VIEW COMPLETED DATE/TIME: 07/13/2017 8:49 am REASON FOR STUDY: R/O PNEUMONIA COMPARISON: AP chest 07/04/2017 CT angio chest 07/05/2017 EXAM PARAMETERS: NUMBER OF VIEWS: One view. TECHNIQUE: Single frontal radiographic view of the chest acquired. RADIATION DOSE: NA LIMITATIONS: None. FINDINGS: LUNGS AND PLEURA: No opacities, masses or pneumothorax. No pleural effusion. MEDIASTINUM AND HILAR STRUCTURES: No masses. Contour normal. HEART AND VASCULAR STRUCTURES: Heart normal in size. Normal vasculature. BONES: No acute findings. HARDWARE: None in the chest. OTHER: No other significant finding. IMPRESSION: NO ACUTE INFILTRATES. TECHNICAL DOCUMENTATION: JOB ID: [id number] [employer]- All Rights Reserved Reading location - IP/workstation name: [email or web address]
--- NOTE | 2017-07-13 09:26 | PDOC PROGRESS REPORT ---
Subjective Progress Note for:: 07/13/17 Subjective:: Decompensated rather dramatically overnight. Spiked a temperature to 104, dropped her blood pressure into the 60s, and was transferred down to the ICU. She initially required Levophed to support her blood pressure, she is now received adequate volume repletion, to bring her blood pressure up, and the Levophed has been weaned off. She is arousable, and will answer simple questions appropriately, but is clearly very encephalopathic. She states she feels terrible, but is unable to be more specific than that. She denies a headache, nausea, chest pain. Reason For Visit: COPD EXACERBATION Physical Exam Vital Signs: Temp Pulse Resp BP Pulse Ox 100.8 F H 83 26 H 91/55 L 95 07/13/17 08:00 07/13/17 08:00 07/13/17 08:00 07/13/17 08:00 07/13/17 08:00 Intake & Output 07/12/17 07/13/17 07/14/17 06:59 06:59 06:59 Intake Total 822 1991 Output Total 235 60 Balance 822 1756 -60 Weight 228 lb 6.382 oz 222 lb 14.197 oz General appearance: PRESENT: no acute distress, obese Respiratory exam: PRESENT: clear to auscultation claudia Cardiovascular exam: PRESENT: RRR GI/Abdominal exam: PRESENT: soft Neurological exam: PRESENT: CN II-XII grossly intact, other - Moves all 4 extremities Skin exam: PRESENT: dry, warm Results Laboratory Results: 07/12/17 20:55 07/12/17 20:55 07/12/17 07/12/17 20:55 20:55 WBC 28.4 H D RBC 4.37 Hgb 14.0 Hct 40.9 MCV 94 MCH 32.0 MCHC 34.2 RDW 13.7 Plt Count 187 Seg Neutrophils % Not Reportable Lymphocytes % Not Reportable Monocytes % Not Reportable Eosinophils % Not Reportable Basophils % Not Reportable Absolute Neutrophils Not Reportable Absolute Lymphocytes Not Reportable Absolute Monocytes Not Reportable Absolute Eosinophils Not Reportable Absolute Basophils Not Reportable Sodium 136.7 L Potassium 3.4 L Chloride 95 L Carbon Dioxide 29 Anion Gap 13 BUN 44 H Creatinine 1.29 H Est GFR ( Amer) 48 L Est GFR (Non-Af Amer) 39 L Glucose 223 H Calcium 8.5 07/05/17 07/05/17 07/05/17 02:51 07:26 15:55 Creatine Kinase CK-MB (CK-2) Troponin I 0.022 0.177 Cancelled NT-Pro-B Natriuret Pep 07/05/17 07/05/17 07/05/17 16:50 23:15 23:15 Creatine Kinase 86 CK-MB (CK-2) 4.62 H Troponin I 0.482 0.708 NT-Pro-B Natriuret Pep 07/06/17 07/06/17 07/06/17 05:30 05:30 12:08 Creatine Kinase 84 70 CK-MB (CK-2) 5.47 H Troponin I 0.642 NT-Pro-B Natriuret Pep 07/06/17 07/07/17 07/11/17 12:08 04:42 04:31 Creatine Kinase < 20 L CK-MB (CK-2) 4.98 H Troponin I 0.598 0.400 NT-Pro-B Natriuret Pep 07/12/17 07/12/17 07/13/17 20:55 20:55 03:30 Creatine Kinase 47 60 CK-MB (CK-2) 1.48 Troponin I 0.446 NT-Pro-B Natriuret Pep 2510 H 07/13/17 03:30 Creatine Kinase CK-MB (CK-2) 1.81 Troponin I 0.793 NT-Pro-B Natriuret Pep Impressions: Head CT 07/04/17 20:09 IMPRESSION: No intracranial hemorrhage or mass effect. Few scattered Areas of low density in the white matter most likely due to chronic micro-vascular ischemic change. No evidence for large vessel acute infarction. EVIDENCE OF ACUTE STROKE: No Chest/Abdomen CTA 07/05/17 00:00 IMPRESSION: Positive for bilateral pulmonary emboli. Brain MRI with MRA 07/05/17 09:25 IMPRESSION: NORMAL MRA OF THE [place] OF [place]. Head MRI 07/05/17 09:25 IMPRESSION: No acute abnormality in the brain. EVIDENCE OF ACUTE STROKE: NO. Venous Doppler Study 07/06/17 00:00 IMPRESSION: PARTIALLY OCCLUSIVE THROMBUS IN THE PROXIMAL RIGHT FEMORAL VEIN. NO EVIDENCE OF DEEP VENOUS THROMBOSIS IN THE LEFT LEG. Carotid Doppler Study 07/06/17 09:14 IMPRESSION: NO HEMODYNAMICALLY SIGNIFICANT STENOSIS. Assessment & Plan - Diagnosis (1) Septic shock Is this a current diagnosis for this admission?: Yes Plan: Unclear etiology at this point. UA is still pending, chest x-ray is unremarkable. Given her collection of symptoms I would be concerned about meningitis. Unfortunately she is currently on Eliquis so an LP would be very high risk. I will initiate empiric therapy and monitor for clinical response. (2) Fever Is this a current diagnosis for this admission?: Yes (3) Seizure Is this a current diagnosis for this admission?: Yes Plan: EEG showed no elective form activity so I will stop her Keppra and put her back on her Neurontin that had previously been effective for neuropathic pain (4) Acute respiratory failure with hypoxia Is this a current diagnosis for this admission?: Yes Plan: Due to PE and underlying COPD. Wean oxygen as tolerated. Still on 1-1/2 L. Had not been on oxygen prior to presentation. (5) Pulmonary embolism Qualifiers: Pulmonary embolism type: other Chronicity: acute Acute cor pulmonale presence: with acute cor pulmonale Qualified Code(s): I26.09 - Other pulmonary embolism with acute cor pulmonale Is this a current diagnosis for this admission?: Yes Plan: Continue Eliquis. I would prefer not to stop this under the circumstances. If necessary we could put her on a heparin drip so as to minimize her on coagulated interval. (6) Metabolic encephalopathy Is this a current diagnosis for this admission?: Yes Plan: Presumably due to acute infection
[2017-07-13 09:36] LABS: HEMATOCRIT 41.5 % (36.0-47.0); HEMOGLOBIN 14.1 g/dL (12.0-15.5); MEAN CORPUSCULAR HEMOGLOBIN 31.9 pg (27.0-33.4); MEAN CORPUSCULAR HGB CONC 33.9 g/dL (32.0-36.0); MEAN CORPUSCULAR VOLUME 94 fl (80-97); PLATELET COUNT 165 10^3/uL (150-450); RED BLOOD COUNT 4.41 10^6/uL (3.72-5.28); RED CELL DISTRIBUTION WIDTH 13.6 % (11.5-14.0)
[2017-07-13 09:48] LABS: CREATINE KINASE MB 1.79 ng/mL (<4.55); TROPONIN I 0.647 ng/mL
[2017-07-13] MEDS: APIXABAN 5 MG TABLET PO SCH ×2 (09:48→21:20)
[2017-07-13 10:07] LABS: ABSOLUTE LYMPHOCYTES# (MANUAL) 0.4 10^3/uL (0.5-4.7); ABSOLUTE NEUTROPHILS# (MANUAL) 17.7 10^3/uL (1.7-8.2); BASOPHILS % (MANUAL) 0 % (0-2); EOSINOPHILS % (MANUAL) 0 % (0-6); LYMPHOCYTES % (MANUAL) 2 % (13-45); MONOCYTES % (MANUAL) 5 % (3-13); SEGMENTED NEUTROPHILS % (MAN) 81 % (42-78); TOTAL CELLS COUNTED 100
[2017-07-13 10:08] LABS: BAND NEUTROPHILS % (MANUAL) 12 % (3-5)
[2017-07-13 10:10] LABS: ALANINE AMINOTRANSFERASE 48 U/L (9-52); ALBUMIN 2.9 g/dL (3.5-5.0); ALKALINE PHOSPHATASE 120 U/L (38-126); ANION GAP 8 (5-19); ASPARTATE AMINO TRANSFERASE 46 U/L (14-36); BILIRUBIN,DIRECT 0.4 mg/dL (0.0-0.4); BILIRUBIN,TOTAL 0.9 mg/dL (0.2-1.3); BLOOD UREA NITROGEN 34 mg/dL (7-20); CALCIUM 8.4 mg/dL (8.4-10.2); CARBON DIOXIDE 31 mmol/L (22-30); CHLORIDE 100 mmol/L (98-107); GLUCOSE 154 mg/dL (75-110); POTASSIUM 3.7 mmol/L (3.6-5.0); SODIUM 139.4 mmol/L (137-145); TOTAL PROTEIN 5.7 g/dL (6.3-8.2)
[2017-07-13 10:13] LABS: PLATELET CLUMPS PRESENT; POLYCHROMASIA SLIGHT; TOXIC GRANULATION 2+; TOXIC VACUOLATION PRESENT
[2017-07-13] MEDS: PREDNISOLONE ACETATE 1% OPH SUSP 5 ML OS SCH (10:58)
[2017-07-13] MEDS: POTASSIUM CHLORIDE 10 MEQ TABLET.SA PO SCH (10:58)
[2017-07-13] MEDS: CEFTRIAXONE 2 GM/D5W RTU 2 GM/50 ML RTUPB IV SCH ×2 (11:00→21:19)
--- NOTE | 2017-07-13 11:01 | RADIOLOGY REPORT (SQ) ---
EXAM DESCRIPTION: MRI HEAD COMBO COMPLETED DATE/TIME: 07/13/2017 10:35 am REASON FOR STUDY: Fever, mental status change since last, can not LP COMPARISON: MRI brain 07/05/2017 MRA [place] [facility] [place] 07/05/2017 CT brain 07/04/2017 TECHNIQUE: Multiplanar imaging includes noncontrasted T1, T2, FLAIR, diffusion with ADC map and post gadolinium contrast T1 sequences. Images stored on PACS. Motion attenuation rapid sequences were use d CONTRAST TYPE AND DOSE: 10 mL Multihance. RENAL FUNCTION: Estimated GFR 39 LIMITATIONS: Motion artifact. Motion attenuation rapid sequences were obtained. FINDINGS: ANATOMY: No developmental anomalies. Normal vascular flow voids. Pituitary fossa normal. CSF SPACES: Normal in size and contour. No hemorrhage. CEREBRUM: Diffusion-weighted images are positive for tiny foci of acute ischemic change in the left f rontal convexity, right parietal deep periventricular white matter, and right inferior cerebellar hem isphere. No associated contrast enhancement. No associated signal changes on FLAIR/ T2 all of these are rapid sequences of limited quality. There is no definite abnormal brain parenchymal enhancement. Please note that the post contrasted im ages are degraded by patient motion artifact. POSTERIOR FOSSA: Punctate focus of altered diffusion in the inferior right cerebellar hemisphere worr isome for tiny acute infarct. No hemorrhage, mass effect or midline shift. DIFFUSION IMAGING: Positive for tiny foci of ischemic change in the left frontal convexity, right par ietal deep periventricular white matter and right inferior cerebellar hemisphere. ORBITS: No masses. Globes normal. PARANASAL SINUSES: No fluid levels. Mucosa normal. OTHER: No other significant finding. IMPRESSION: No abnormal contrast enhancement is identified on post gadolinium images Several tiny foci of ischemic change on the diffusion-weighted images as above. Report discussed with Dr. Coughlin, patient's attending physician at the time of dictation EVIDENCE OF ACUTE STROKE: NO. TECHNICAL DOCUMENTATION: JOB ID: [id number] [employer]- All Rights Reserved Reading location - IP/workstation name: [email or web address]
[2017-07-13] MEDS: POTASSI CL 20 MEQ/D5-1/2NS 1L 1000 ML IV PRN (11:02)
[2017-07-13] MEDS ORDERED: ACYCLOVIR SODIUM 1,000 MG in NORMAL SALINE 250 ML IV SCH (12:00)
[2017-07-13] MEDS: ACYCLOVIR SODIUM 1,000 MG in NORMAL SALINE 250 ML IV SCH (12:28)
[2017-07-13] MEDS: VANCOMYCIN HCL 1,500 MG in DEXTROSE 5%-WATER 250 ML IV SCH (13:57)
[2017-07-13] MEDS: GABAPENTIN 100 MG CAPSULE PO SCH ×2 (15:11→21:20)
[2017-07-13] MEDS: METHYLPREDNISOLONE INJ 40 MG/1 ML SDV IV SCH ×2 (15:12→21:21)
[2017-07-13] MEDS: IBUPROFEN 400 MG TABLET PO SCH (17:41)
[2017-07-13] MEDS: MICAFUNGIN SODIUM 100 MG in NORMAL SALINE 100 ML IV SCH (17:42)
[2017-07-13] MEDS ORDERED: DOPAMINE HCL/DEXTROSE 5%-WATER 0 MG/0 ML RTUINJ IV ONE (19:08)
[2017-07-13] MEDS ORDERED: FUROSEMIDE INJ/PF 20 MG/2 ML SDV ONE (19:08)
[2017-07-13] MEDS: DEXTROSE 5%-WATER 250 ML with NOREPINEPHRINE BITARTRATE 4 MG IV PRN ×2 (20:36)
[2017-07-13] MEDS: CITALOPRAM HYDROBROMIDE 20 MG TABLET PO SCH (21:20)
[2017-07-13] MEDS: ACETAMINOPHEN 325 MG TABLET PO SCH (21:20)
[2017-07-13] MEDS: ATORVASTATIN CALCIUM 20 MG TABLET PO SCH (21:47)
[2017-07-14] MEDS: ACYCLOVIR SODIUM 1,000 MG in NORMAL SALINE 250 ML IV SCH ×2 (01:37→12:50)
[2017-07-14] MEDS ORDERED: NOREPINEPHRINE BITARTRATE INJ/PF 4 MG/4 ML SDV IV ONE (01:43)
[2017-07-14] MEDS: DEXTROSE 5%-WATER 250 ML with NOREPINEPHRINE BITARTRATE 4 MG IV PRN ×2 (01:47)
[2017-07-14] MEDS: IBUPROFEN 400 MG TABLET PO SCH ×3 (01:49→12:50)
[2017-07-14 04:13] LABS: HEMATOCRIT 38.8 % (36.0-47.0); HEMOGLOBIN 13.3 g/dL (12.0-15.5); MEAN CORPUSCULAR HGB CONC 34.3 g/dL (32.0-36.0); MEAN CORPUSCULAR VOLUME 93 fl (80-97); PLATELET COUNT 162 10^3/uL (150-450); RED BLOOD COUNT 4.16 10^6/uL (3.72-5.28); RED CELL DISTRIBUTION WIDTH 13.6 % (11.5-14.0)
[2017-07-14 04:22] LABS: ALBUMIN 2.7 g/dL (3.5-5.0); ANION GAP 7 (5-19); BLOOD UREA NITROGEN 37 mg/dL (7-20); CALCIUM 7.8 mg/dL (8.4-10.2); CARBON DIOXIDE 28 mmol/L (22-30); CHLORIDE 98 mmol/L (98-107); GLUCOSE 314 mg/dL (75-110); PHOSPHORUS 2.4 mg/dL (2.5-4.5); POTASSIUM 3.4 mmol/L (3.6-5.0); SODIUM 132.6 mmol/L (137-145)
[2017-07-14 04:52] LABS: ABSOLUTE LYMPHOCYTES# (MANUAL) 0.2 10^3/uL (0.5-4.7); ABSOLUTE MONOCYTES # (MANUAL) 0.7 10^3/uL (0.1-1.4); ABSOLUTE NEUTROPHILS# (MANUAL) 22.1 10^3/uL (1.7-8.2); BAND NEUTROPHILS % (MANUAL) 21 % (3-5); BASOPHILS % (MANUAL) 0 % (0-2); EOSINOPHILS % (MANUAL) 0 % (0-6); LYMPHOCYTES % (MANUAL) 1 % (13-45); MONOCYTES % (MANUAL) 3 % (3-13); SEGMENTED NEUTROPHILS % (MAN) 75 % (42-78); TOTAL CELLS COUNTED 100
[2017-07-14 04:53] LABS: RBC MORPHOLOGY COMMENT NORMO-CYTIC/CHROMIC
[2017-07-14 04:54] LABS: PLATELET COMMENT ADEQUATE; PLATELET LARGE PRESENT; TOXIC GRANULATION 1+; TOXIC VACUOLATION PRESENT
[2017-07-14] MEDS: POTASSI CL 20 MEQ/D5-1/2NS 1L 1000 ML IV PRN (05:23)
[2017-07-14] MEDS: GABAPENTIN 100 MG CAPSULE PO SCH ×3 (05:51→21:26)
[2017-07-14] MEDS: METHYLPREDNISOLONE INJ 40 MG/1 ML SDV IV SCH ×2 (05:51→15:22)
[2017-07-14] MEDS: LANSOPRAZOLE 30 MG TAB.RAP.DR PO SCH (05:51)
[2017-07-14] MEDS: ACETAMINOPHEN 325 MG TABLET PO SCH ×3 (08:32→15:23)
[2017-07-14] MEDS: POTASSIUM CHLORIDE 10 MEQ TABLET.SA PO SCH (10:43)
[2017-07-14] MEDS: APIXABAN 5 MG TABLET PO SCH ×2 (10:44→21:27)
[2017-07-14] MEDS: PREDNISOLONE ACETATE 1% OPH SUSP 5 ML OS SCH (10:44)
[2017-07-14] MEDS: CEFTRIAXONE 2 GM/D5W RTU 2 GM/50 ML RTUPB IV SCH (10:44)
[2017-07-14] MEDS: VANCOMYCIN HCL 1,500 MG in DEXTROSE 5%-WATER 250 ML IV SCH (15:23)
[2017-07-14 15:39] LABS: PATH REVIEW PATHOLOGIST REVIEWED
[2017-07-14] MEDS: MICAFUNGIN SODIUM 100 MG in NORMAL SALINE 100 ML IV SCH (17:52)
--- NOTE | 2017-07-14 19:38 | Progress Note ---
Provider Note Provider Note: ID Consult Note Asked by Pharmacy to review the patient's chart. Pt not seen and examined. Chart reviewed, including VS, provider notes, imaging, and labs. Ms. Espino is an 82 yo woman with pmh including hx of CVA with L hemiparesis, HTN, COPD, questionable CHF. She presented to [facility] on 07/05/17 with acute hypoxia that was found to be due to a new diagnosis of bilateral pulmonary emboli. She was found to have a R proximal femoral vein thrombosis. She was treated appropriately with anticoagulation and supportive care for possible COPD exacerbation. Overnight between 07/12 and 07/13, she had dramatic decompensation that required transfer to the ICU. She had sudden onset of high fever up to 104 F and hypotension requiring volume repletion and vasopressor support. Her WBC count increased from 9.4 on 07/10 up to 23k. She was found to be encephalopathic on exam but able to answer simple questions appropriately. Workup to identify an underlying infection included repeat BCx on 07/13, which are currently reported as showing growth in both sets of GPCs. This is in contrast to BCx obtained on admission, which were negative. She had UCx also sent. CXR did not show focal infiltrate. She was empirically given micafungin, vancomycin, acyclovir and Rocephin 2 g q12h for possible meningitis as an LP could not be performed in a timely manner due to her anticoagulation. She also had an MRI brain to further evaluate, which was read as showing several tiny foci of ischemic change on DWI images, although the study was limited by motion artifact. Impression/Recommendations Bacteremia with gram positive cocci - GPCs in clusters are most likely either coagulase negative staph or Staph aureus. I suspect Staph aureus bacteremia, considering the clinical cpmtext. septic shock, which has since improved with empiric therapy with vancomycin, transient vasopressor support, and volume repletion. Hospital onset Staph aureus bacteremia is often associated with an infected line (central or peripheral IV), which potentially may be appreciable on exam if there is erythema surrounding the insertion site. Suggest replacing PIVs if access can be established at other sites given the suspicion for Staph aureus bacteremia from an infected line. Vancomycin until identification/susceptibilites are available. Encephalopathy - Nosocomial meningitis seems unlikely. Most instances are related to a neurosurgical procedure. Potentially hematogenous seeding of meninges in a high grade bacteremia can also cause hospital onset meningitis, but the most parsimonious explanation is that of toxic-metabolic encephalopathy related to the physiologic derangements of septic shock and hypoperfusion and/or multifocal stroke based on the MRI findings. Lack of a headache is also not typical for meningitis. I do not think that she needs to continue empiric treatment with acyclovir, Rocephin, or micafungin if she has a more likely, alternative explanation for her presentation. Candidal meningitis is quite uncommon in adults and is usually associated with specific situations, such as PRICE CHECKER shunt infection, that do not apply to the patient. Vasiliy Funes MD, [facility] pager [phone]
--- NOTE | 2017-07-14 19:57 | PDOC PROGRESS REPORT ---
Subjective Progress Note for:: 07/14/17 Subjective:: More awake and interactive today. States she feels clouded, but has no focal complaints. Reason For Visit: COPD EXACERBATION Physical Exam Vital Signs: Temp Pulse Resp BP Pulse Ox 97.3 F 70 23 H 119/69 99 07/14/17 18:00 07/14/17 18:00 07/14/17 18:47 07/14/17 18:47 07/14/17 18:47 Intake & Output 07/13/17 07/14/17 07/15/17 06:59 06:59 06:59 Intake Total 1990 2803 2243 Output Total 235 640 400 Balance 1756 2163 1843 Weight 222 lb 14.197 oz 226 lb 13.69 oz General appearance: PRESENT: no acute distress, obese Respiratory exam: PRESENT: clear to auscultation claudia Cardiovascular exam: PRESENT: RRR GI/Abdominal exam: PRESENT: soft Neurological exam: PRESENT: altered, oriented to person, oriented to place, CN II-XII grossly intact. ABSENT: motor sensory deficit Psychiatric exam: PRESENT: appropriate affect Skin exam: PRESENT: dry, warm Results Laboratory Results: 07/14/17 03:47 07/14/17 03:57 07/14/17 07/14/17 03:47 03:57 WBC 23.0 H RBC 4.16 Hgb 13.3 Hct 38.8 MCV 93 MCH 32.0 MCHC 34.3 RDW 13.6 Plt Count 162 Seg Neutrophils % Not Reportable Lymphocytes % Not Reportable Monocytes % Not Reportable Eosinophils % Not Reportable Basophils % Not Reportable Absolute Neutrophils Not Reportable Absolute Lymphocytes Not Reportable Absolute Monocytes Not Reportable Absolute Eosinophils Not Reportable Absolute Basophils Not Reportable Sodium 132.6 L Potassium 3.4 L Chloride 98 Carbon Dioxide 28 Anion Gap 7 BUN 37 H Creatinine 0.90 Est GFR ( Amer) > 60 Est GFR (Non-Af Amer) > 60 Glucose 314 H Calcium 7.8 L Phosphorus 2.4 L Magnesium 1.8 Albumin 2.7 L 07/13/17 01:30 Catheterized Urine Urine Culture - Final 4,000 col/ml 07/05/17 07/05/17 07/05/17 02:51 07:26 15:55 Creatine Kinase CK-MB (CK-2) Troponin I 0.022 0.177 Cancelled NT-Pro-B Natriuret Pep 07/05/17 07/05/17 07/05/17 16:50 23:15 23:15 Creatine Kinase 86 CK-MB (CK-2) 4.62 H Troponin I 0.482 0.708 NT-Pro-B Natriuret Pep 07/06/17 07/06/17 07/06/17 05:30 05:30 12:08 Creatine Kinase 84 70 CK-MB (CK-2) 5.47 H Troponin I 0.642 NT-Pro-B Natriuret Pep 07/06/17 07/07/17 07/11/17 12:08 04:42 04:31 Creatine Kinase < 20 L CK-MB (CK-2) 4.98 H Troponin I 0.598 0.400 NT-Pro-B Natriuret Pep 07/12/17 07/12/17 07/13/17 20:55 20:55 03:30 Creatine Kinase 47 60 CK-MB (CK-2) 1.48 Troponin I 0.446 NT-Pro-B Natriuret Pep 2510 H 07/13/17 07/13/17 07/13/17 03:30 09:05 09:05 Creatine Kinase 79 CK-MB (CK-2) 1.81 1.79 Troponin I 0.793 0.647 NT-Pro-B Natriuret Pep Impressions: Head CT 07/04/17 20:09 IMPRESSION: No intracranial hemorrhage or mass effect. Few scattered Areas of low density in the white matter most likely due to chronic micro-vascular ischemic change. No evidence for large vessel acute infarction. EVIDENCE OF ACUTE STROKE: No Chest/Abdomen CTA 07/05/17 00:00 IMPRESSION: Positive for bilateral pulmonary emboli. Brain MRI with MRA 07/05/17 09:25 IMPRESSION: NORMAL MRA OF THE [place] OF [place]. Venous Doppler Study 07/06/17 00:00 IMPRESSION: PARTIALLY OCCLUSIVE THROMBUS IN THE PROXIMAL RIGHT FEMORAL VEIN. NO EVIDENCE OF DEEP VENOUS THROMBOSIS IN THE LEFT LEG. Carotid Doppler Study 07/06/17 09:14 IMPRESSION: NO HEMODYNAMICALLY SIGNIFICANT STENOSIS. Chest X-Ray 07/13/17 00:00 IMPRESSION: NO ACUTE INFILTRATES. Head MRI 07/13/17 00:00 IMPRESSION: No abnormal contrast enhancement is identified on post gadolinium images Several tiny foci of ischemic change on the diffusion-weighted images as above. Report discussed with Dr. Green, patient's attending physician at the time of dictation EVIDENCE OF ACUTE STROKE: NO. Assessment & Plan - Diagnosis (1) Septic shock Is this a current diagnosis for this admission?: Yes Plan: Unclear etiology at this point. UA is still pending, chest x-ray is unremarkable. 2 out of 2 blood cultures are growing gram-positive cocci as yet unspeciated. Appears to be improving on empiric therapy. I will de-escalate and stop her acyclovir, steroids, and antifungals. (2) Fever Is this a current diagnosis for this admission?: Yes Plan: None in over 24 hours (3) Seizure Is this a current diagnosis for this admission?: Yes Plan: EEG showed no elieptiform activity. Restarted her Neurontin that had previously been effective for neuropathic pain (4) Acute respiratory failure with hypoxia Is this a current diagnosis for this admission?: Yes Plan: Due to PE and underlying COPD. Wean oxygen as tolerated. Still on 1-1/2 L. Had not been on oxygen prior to presentation. (5) Pulmonary embolism Qualifiers: Pulmonary embolism type: other Chronicity: acute Acute cor pulmonale presence: with acute cor pulmonale Qualified Code(s): I26.09 - Other pulmonary embolism with acute cor pulmonale Is this a current diagnosis for this admission?: Yes Plan: Continue Eliquis. (6) Metabolic encephalopathy Is this a current diagnosis for this admission?: Yes Plan: Presumably due to acute infection, though a repeat CT showed new tiny foci of ischemic change in the left frontal convexity, right parietal deep periventricular white matter, and right inferior cerebellar hemisphere.
[2017-07-14] MEDS: ATORVASTATIN CALCIUM 20 MG TABLET PO SCH (21:26)
[2017-07-14] MEDS: CITALOPRAM HYDROBROMIDE 20 MG TABLET PO SCH (21:27)
[2017-07-15 04:20] LABS: HEMATOCRIT 36.9 % (36.0-47.0); HEMOGLOBIN 12.5 g/dL (12.0-15.5); MEAN CORPUSCULAR HEMOGLOBIN 31.7 pg (27.0-33.4); MEAN CORPUSCULAR HGB CONC 33.8 g/dL (32.0-36.0); MEAN CORPUSCULAR VOLUME 94 fl (80-97); PLATELET COUNT 131 10^3/uL (150-450); RED BLOOD COUNT 3.94 10^6/uL (3.72-5.28); RED CELL DISTRIBUTION WIDTH 13.4 % (11.5-14.0); WHITE BLOOD COUNT 17.8 10^3/uL (4.0-10.5)
[2017-07-15 04:40] LABS: ABSOLUTE LYMPHOCYTES# (MANUAL) 0.5 10^3/uL (0.5-4.7); ABSOLUTE MONOCYTES # (MANUAL) 1.2 10^3/uL (0.1-1.4); BASOPHILS % (MANUAL) 0 % (0-2); EOSINOPHILS % (MANUAL) 0 % (0-6); LYMPHOCYTES % (MANUAL) 3 % (13-45); MONOCYTES % (MANUAL) 7 % (3-13); SEGMENTED NEUTROPHILS % (MAN) 90 % (42-78); TOTAL CELLS COUNTED 100
[2017-07-15 04:41] LABS: PLATELET COMMENT DECREASED; RBC MORPHOLOGY COMMENT NORMO-CYTIC/CHROMIC
[2017-07-15] MEDS: GABAPENTIN 100 MG CAPSULE PO SCH ×3 (05:32→21:26)
[2017-07-15] MEDS: LANSOPRAZOLE 30 MG TAB.RAP.DR PO SCH (05:32)
[2017-07-15 06:58] LABS: BLOOD UREA NITROGEN 40 mg/dL (7-20); CALCIUM 8.1 mg/dL (8.4-10.2); GLUCOSE 404 mg/dL (75-110)
[2017-07-15 06:59] LABS: ALANINE AMINOTRANSFERASE 45 U/L (9-52); ALBUMIN 2.3 g/dL (3.5-5.0); ALKALINE PHOSPHATASE 95 U/L (38-126); ANION GAP 6 (5-19); ASPARTATE AMINO TRANSFERASE 28 U/L (14-36); BILIRUBIN,TOTAL < 0.1 mg/dL (0.2-1.3); CARBON DIOXIDE 25 mmol/L (22-30); CHLORIDE 101 mmol/L (98-107); POTASSIUM 3.9 mmol/L (3.6-5.0); SODIUM 132.4 mmol/L (137-145)
[2017-07-15 07:00] LABS: PHOSPHORUS 2.3 mg/dL (2.5-4.5); TOTAL PROTEIN 4.7 g/dL (6.3-8.2)
[2017-07-15] MEDS ORDERED: DEXTROSE 40% GEL 15 GM TUBE PO PRN ×2 (07:07)
[2017-07-15] MEDS ORDERED: DEXTROSE 50%-WATER 25 GM/50 ML DISP.SYRIN IV PRN ×2 (07:07)
[2017-07-15] MEDS ORDERED: GLUCAGON,HUMAN RECOMB 1 MG INJ IM PRN (07:07)
[2017-07-15] MEDS: INSULIN LISPRO 100 UNIT/ML 3 ML VIAL SUBCUT PRN ×2 (08:28→11:38)
--- NOTE | 2017-07-15 08:42 | PROGRESS NOTE E ---
Progress Note NAME: RAFAELA RHODES : 1935 AGE: 82Y DATE: 07/15/2017 ROOM: 612 CODE STATUS: FULL CODE. SUBJECTIVE: The patient is currently lying in bed. She states that she feels okay today. The patient is alert and oriented to person and place but not full insight to situation. She does not appear to be distressed. The patient denies any nausea, vomiting or diarrhea. No shortness of breath, dizziness or chest pain. No fevers or chills. The patient has been afebrile. Blood pressure has been in a good range. The patient is no longer requiring vasopressors. The patient does not voice any other concerns at this time. REVIEW OF SYSTEMS: The rest of the review of systems is negative. MEDICATIONS: Medications have been reviewed. OBJECTIVE: GENERAL: The patient is an 82-year-old female who is awake, alert, and oriented to person, place, time, and situation. She is verbal, conversational, does not appear to be in any acute distress. VITAL SIGNS: As follows: Temperature is 97.2, pulse is 67, respirations 18, blood pressure is 135/76, oxygen saturation is 100% on room air. SKIN: Warm and dry. No rash, not diaphoretic. HEENT: Pupils equal, round, and reactive to light and accommodation. Conjunctivae pink. No evidence of JVP. CARDIOVASCULAR: Heart is regular. There is no murmur or rub. CHEST: Clear, symmetrical, unlabored. ABDOMEN: Soft, nontender, nondistended. BACK: No CVA tenderness or sacral edema. EXTREMITIES: No clubbing, cyanosis, edema. PSYCHIATRIC: Appropriate affect. Pleasant mood. DIAGNOSTICS: Lab values are as follows. Hematology obtained on 07/15/2017: WBCs are 17.8, hemoglobin is 12.5, hematocrit is 36.9, platelet count is 131,000. Chemistry obtained on 07/15/2017: Sodium is 137, potassium 3.9, chloride is 101, carbon dioxide 25, BUN 40, creatinine 0.94, glucose 404, calcium is 8.1, phosphorus 2.3, magnesium is 1.8, bilirubin is 0.1, AST 28, ALT is 40, alk phos 95, total protein 4.7, albumin 2.3. Blood cultures obtained on 07/13/2017 reveal Gram-positive cocci. IMPRESSION AND PLAN: 1. GRAM-POSITIVE COCCI BACTEREMIA, UNCERTAIN OF THE EXACT ETIOLOGY OF THIS. The patient has received 2 days of vancomycin. Will repeat blood cultures. Everything has been otherwise unremarkable. The patient is much improved. 2. SEPTIC SHOCK SECONDARY TO #1. The patient remains on vancomycin and Rocephin at this time. Again, will repeat cultures and follow. The patient is no longer requiring vasopressors. 3. SEIZURE-LIKE ACTIVITY. The patient's EEG shows no epileptiform activity. Have restarted the patient's Neurontin and follow. 4. CHRONIC OBSTRUCTIVE PULMONARY DISEASE. The patient's O2 is being weaned. Overall much improved. 5. BILATERAL PULMONARY EMBOLI. The patient remains on Eliquis. 6. ACUTE ON CHRONIC HYPOXEMIC RESPIRATORY FAILURE SECONDARY TO THE ABOVE. Overall appears improved. 7. METABOLIC ENCEPHALOPATHY. Appears to be improving. 8. 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 The patient does not appear to have neurological deficits at this time. 9. OBESITY WITH A BMI OF 37. Will monitor. 10. HYPERGLYCEMIA. Uncertain of the exact etiology of this. This has continued to climb. Will obtain an A1c and start the patient on sliding-scale coverage. 11. MULTIPLE PVCs. Will start the patient on a low dose of Cardizem given that the patient's pressure is in a good range. DISPOSITION: THE PATIENT IS A FULL CODE. Pending the patient's symptomatology and diagnostic findings, will re-evaluate in the a.m. The patient can be downgraded to an [facility] bed. Time spent on this followup, including assessment/plan, physical examination, patient education, and review of records, is 45 minutes. DICTATING PHYSICIAN: KAREEM ZACARIAS NP [id number] PHY#: [id number] ID: [id number] JOB#: [id number] ACCT: [id number] cc: >
[2017-07-15] MEDS ORDERED: DILTIAZEM HCL 30 MG TABLET PO ONE (09:00)
[2017-07-15] MEDS: CEFTRIAXONE 2 GM/D5W RTU 2 GM/50 ML RTUPB IV SCH (09:26)
[2017-07-15] MEDS: PREDNISOLONE ACETATE 1% OPH SUSP 5 ML OS SCH (09:27)
[2017-07-15] MEDS: POTASSIUM CHLORIDE 10 MEQ TABLET.SA PO SCH (09:27)
[2017-07-15] MEDS: APIXABAN 5 MG TABLET PO SCH ×2 (09:27→21:26)
[2017-07-15] MEDS ORDERED: DILTIAZEM HCL 30 MG TABLET PO SCH (12:00)
[2017-07-15] MEDS: VANCOMYCIN HCL 1,500 MG in DEXTROSE 5%-WATER 250 ML IV SCH (13:40)
[2017-07-15] MEDS: DILTIAZEM HCL 30 MG TABLET PO SCH ×2 (13:46→21:26)
--- NOTE | 2017-07-15 15:30 | Progress Note ---
Provider Note Provider Note: ID Consult Note Asked to review patient's chart by Pharmacy. Ms. Espino is an 82 yo woman who was admitted with SOB d/t COPD AE and new dx of b/l PE. On 07/13, she developed septic shock. Until the source could be identified, she was empirically given vancomycin, Rocephin, micafungin, and acyclovir. She was found to have Staphylococcus aureus bacteremia as the cause of her septic shock, and micafungin and acyclovir have since been discontinued. Susceptibilities for the isolate have returned. It is MSSA. Pt is improving - afebrile, normotensive. No rash or murmur noted on exam. Repeat BCx have been ordered. Impression/Recommendations septic shock due to MSSA bacteremia - shock has resolved, pt is afebrile, agree with repeat BCx that have been ordered - an intravascular device is often the source of infection when there is onset of Staph aureus bacteremia in the hospital; pt has not had a CVL, but peripheral IVs can be sources of bacteremia as well. If not already done, suggest examining PIV sites for evidence of infection and replacing PIVs - remain vigilant for signs and symptoms that suggest metastatic foci or complications of Staph aureus bacteremia (e.g. development of new point tenderness over the spine that might suggest vertebral osteomyelitis/discitis) - repeat TTE; all patients with Staph aureus bacteremia are recommended to undergo echocardiogarphy to evaluate for the presence of endocarditis - recommend discontinuing vancomycin and Rocephin; susceptibilities have returned, and the isolate is MSSA, so cefazolin or nafcillin would be appropriate. Cefazolin is more cost effective and generally better tolerated. No other sources of the patient's septic shock are apparent. Start Cefazolin 2 g q8h. - Provided that the patient is shown to have negative BCx within 96 hours of the initial positive BCx and no echocardiographic or other physical findings to suggest a complication, she may be able to be treated for a 2 week duration, starting from the date of negative blood cultures. This duration is contingent upon the results of the echo and repeat BCx. Vasiliy Funes MD [facility] Infectious Diseases [phone]
[2017-07-15] MEDS: ATORVASTATIN CALCIUM 20 MG TABLET PO SCH (21:26)
[2017-07-15] MEDS: CITALOPRAM HYDROBROMIDE 20 MG TABLET PO SCH (21:26)
[2017-07-15] MEDS: ACETAMINOPHEN 325 MG TABLET PO PRN (21:32)
[2017-07-16 04:37] LABS: HEMATOCRIT 38.5 % (36.0-47.0); MEAN CORPUSCULAR HEMOGLOBIN 31.9 pg (27.0-33.4); MEAN CORPUSCULAR HGB CONC 33.8 g/dL (32.0-36.0); MEAN CORPUSCULAR VOLUME 94 fl (80-97); PLATELET COUNT 159 10^3/uL (150-450); RED BLOOD COUNT 4.08 10^6/uL (3.72-5.28); RED CELL DISTRIBUTION WIDTH 13.9 % (11.5-14.0); WHITE BLOOD COUNT 12.7 10^3/uL (4.0-10.5)
[2017-07-16 04:56] LABS: ANION GAP 10 (5-19); BLOOD UREA NITROGEN 37 mg/dL (7-20); CALCIUM 8.3 mg/dL (8.4-10.2); CARBON DIOXIDE 25 mmol/L (22-30); CHLORIDE 102 mmol/L (98-107); GLUCOSE 125 mg/dL (75-110); POTASSIUM 4.5 mmol/L (3.6-5.0)
[2017-07-16] MEDS: GABAPENTIN 100 MG CAPSULE PO SCH ×3 (06:09→21:22)
[2017-07-16] MEDS: LANSOPRAZOLE 30 MG TAB.RAP.DR PO SCH (06:10)
[2017-07-16] MEDS: DILTIAZEM HCL 30 MG TABLET PO SCH ×3 (06:10→21:21)
[2017-07-16] MEDS: CEFTRIAXONE 2 GM/D5W RTU 2 GM/50 ML RTUPB IV SCH (09:58)
[2017-07-16] MEDS: POTASSIUM CHLORIDE 10 MEQ TABLET.SA PO SCH (09:59)
[2017-07-16] MEDS: PREDNISOLONE ACETATE 1% OPH SUSP 5 ML OS SCH (09:59)
[2017-07-16] MEDS: APIXABAN 5 MG TABLET PO SCH (09:59)
[2017-07-16 13:17] LABS: VANCOMYCIN,TROUGH 11.4 ug/mL (5.0-20.0)
[2017-07-16] MEDS ORDERED: CEFAZOLIN 2 GM/D5W RTU 2 GM/50 ML RTUPB IV SCH (14:00)
[2017-07-16] MEDS: ACETAMINOPHEN 325 MG TABLET PO PRN (14:26)
[2017-07-16] MEDS: CEFAZOLIN SODIUM 2 GM in DEXTROSE 5%-WATER 100 ML IV SCH ×2 (14:27→22:59)
[2017-07-16] MEDS ORDERED: HEPARIN SOD (PORCINE) 1,000 UNIT/ML 10 ML VIAL IV ONE (16:31)
[2017-07-16 17:13] LABS: HEMATOCRIT 37.9 % (36.0-47.0); INTERNATIONAL RATION (INR) 1.08; MEAN CORPUSCULAR HEMOGLOBIN 32.1 pg (27.0-33.4); MEAN CORPUSCULAR HGB CONC 34.2 g/dL (32.0-36.0); MEAN CORPUSCULAR VOLUME 94 fl (80-97); PLATELET COUNT 160 10^3/uL (150-450); PROTHROMBIN TIME 14.6 SEC (11.4-15.4); RED BLOOD COUNT 4.04 10^6/uL (3.72-5.28); RED CELL DISTRIBUTION WIDTH 13.7 % (11.5-14.0); WHITE BLOOD COUNT 10.5 10^3/uL (4.0-10.5)
[2017-07-16 17:14] LABS: PARTIAL THROMBOPLASTIN TIME 30.4 SEC (23.5-35.8)
--- NOTE | 2017-07-16 17:31 | Progress Note ---
Provider Note Provider Note: ID Consult Note Asked by the treating provider to provide input/clarification regarding workup for MSSA bacteremia. Generally, starting with a transthoracic echocardiogram ( TTE) is appropriate, as I wrote in the previous note. However, her last TTE was suboptimal in quality and could not visualize many valves. She also had an MRI of the brain that showed multifocal punctate infarcts. The nature of those infarcts is unclear to me. Watershed infarcts can happen in the setting of hypoperfusion, and she was in shock and required vasopressor support. I suspect this is the most likely explanation, but I cannot say with certainty, and I do not know if there are characteristics of the infarcts seen that would help distinguish one potential etiology from the other. Complications like endocarditis are less likely to occur in hospital onset than in community onset Staph aureus bacteremia, but the multifocal infarcts seen on her MRI brain could happen with an embolic source - such as from a venous thrombosis/PE through a PFO or from septic emboli from endocarditis. Essentially, if TTE is not able to visualize valves well, she may need a NADER, given the presence of the multifocal cerebral infarcts. Otherwise, pt has been afebrile, has preliminary repeat BCx negative on cefazolin, has improvement in WBC count. Appears to be doing better. Recommend continuing cefazolin and waiting until the repeat BCx are negative x 48-72h prior to placing any halfway lines, such as a PICC line. Anticipate minimum duration of treatment of 2 weeks from date of negative BCx, possibly longer depending on echo findings, or if the repeat BCx fail to show clearance. Vasiliy Funes MD [facility] Infectious Diseases pager [phone]
[2017-07-16 17:46] LABS: ABSOLUTE MONOCYTES # (MANUAL) 1.1 10^3/uL (0.1-1.4); ABSOLUTE NEUTROPHILS# (MANUAL) 7.4 10^3/uL (1.7-8.2); BAND NEUTROPHILS % (MANUAL) 6 % (3-5); BASOPHILS % (MANUAL) 0 % (0-2); EOSINOPHILS % (MANUAL) 1 % (0-6); LYMPHOCYTES % (MANUAL) 19 % (13-45); MONOCYTES % (MANUAL) 10 % (3-13); PLATELET COMMENT ADEQUATE; SEGMENTED NEUTROPHILS % (MAN) 64 % (42-78); TOTAL CELLS COUNTED 100; TOXIC GRANULATION SLIGHT
[2017-07-16] MEDS ORDERED: LOSARTAN POTASSIUM 50 MG TABLET PO ONE (18:00)
--- NOTE | 2017-07-16 18:15 | TRANSFER SUMMARY E ---
Transfer Summary NAME: RAFAELA RHODES : 1935 AGE: 82Y ADMITTED: 07/05/2017 TRANSFERRED: 07/17/2017 CODE STATUS: FULL CODE. PRIMARY CARE PROVIDER: Not established locally. CONSULTING DIRECTOR VOICE: Tj Nicole MD. DISCHARGE DIAGNOSES: Includes: 1. MSSA bacteremia with persistently positive blood cultures. 2. Septic shock, secondary to #1, improved. 3. Seizure-like activity. 4. COPD. 5. Bilateral pulmonary emboli, which appears to have failed Eliquis. 6. Acute on chronic hypoxemic respiratory failure, secondary to the above. 7. Metabolic encephalopathy. 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 9. Obesity, with a BMI of 37. 10. Prediabetes, with an A1c of 6.3. CURRENT MEDICATIONS: Include: 1. Low dose heparin. 2. Ancef 2 grams IV q.8 hours. 3. Phenergan 12.5 mg IV q.4 hours p.r.n. 4. Lipitor 40 mg p.o. at hour of sleep. 5. Cardizem 30 mg p.o. q.8 hours. 6. Cozaar 50 mg p.o. q.12 hours. 7. Tylenol 650 mg p.o. q.4 hours p.r.n. 8. Celexa 20 mg p.o. at hour of sleep. 9. Neurontin 100 mg p.o. IV. 10. Potassium chloride 20 mEq p.o. daily. 11. Inflamase 1% suspension, 1 drop in left eye daily. 12. Prevacid 30 mg p.o. q. a.m. 13. Zinc oxide 1 topical application daily p.r.n. 14. Novolog sliding scale coverage. ALLERGIES: Include BETA BLOCKERS, which cause syncope. DIET: Will be made n.p.o. for transfer. ACTIVITY: Bedrest. CONDITION: Fair. DIAGNOSTICS: Lab values were as follows: Hematology obtained on 07/16/2017: WBCs are 12.7, hemoglobin 13.0, hematocrit is 38.5, platelet count is 159,000. Coagulation obtained on 07/05/2017: D-dimer is 19.89. ABG obtained on 07/04/2017: PH of 7.41, pCO2 is 39.8, pO2 is 75.9, bicarb is 24.4. Chemistry panel obtained 07/16/2017: Sodium is 137, potassium 4.5, chloride is 102, carbon dioxide 25, BUN 37, creatinine is 0.83. Glucose 125. A1c is 6.3. Calcium is 8.3. Magnesium is 1.8. Phosphorus is 2.3. Bilirubin 0.1. AST 28, ALT is 40, alk phos 95, total protein 4.7, albumin 2.3. TSH is 0.91. CK 79, CK-MB is 1.79. Troponin is 0.647. Urinalysis obtained on 07/09/2017: Color: Straw. Appearance: Clear. PH is 5.0, specific gravity is 1.006. Protein negative, glucose negative, ketones negative. Occult blood negative, nitrite negative, bilirubin negative, urobilinogens negative, leukocyte esterase is negative. WBCs, there are 0; RBCs, 0; casts, 2; bacteria, trace; mucus, rare; ascorbic acid is negative. Toxicology obtained on 07/16/2017: Vancomycin trough was 11.4. Microbiology: Blood cultures obtained on 07/06/2017 showed no growth. Urine culture obtained on 07/13/2017 revealed no growth. Blood cultures obtained on 07/13/2017 revealed an MSSA. Blood cultures sent on 07/15/2017 revealed gram-positive cocci in clusters. Blood cultures sent on 07/16/[address] obtained on 07/04/2017 reveals no intracranial hemorrhage or mass effect. A few scattered areas of low density in the white matter, most likely due to chronic microvascular ischemic changes. No evidence of acute large vessel infarction. Chest x-ray obtained on 07/04/2017 reveals no acute radiographic finding of the chest. CT of the chest and abdomen obtained on 08/04/2017 reveals positive for bilateral pulmonary emboli. Brain MRI obtained on 07/05/2017 reveals a normal [place]. Brain MRI obtained on 07/05/2017 reveals no acute abnormality in the brain, with evidence of possible old infarctions or subacute infarctions. Venous Doppler obtained on 07/06/2017 reveals partially occlusive thrombus in the proximal right femoral vein. Carotid Doppler obtained on 07/06/2017 reveals no hemodynamically significant stenosis. Chest x-ray obtained on 07/13/2017 reveals no acute infiltrate. Head MRI obtained on 07/13/2017 reveals no abnormal contrast enhancement is identified with post gadolinium images. Several tiny foci of ischemic changes in the fusion-weighted images, such as acute ischemic change in the left frontal convexity with a right parietal deep periventricular white matter in the right inferior cerebral hemisphere, with punctuated focus of alteration of diffusion in the inferior right cerebellar hemisphere, showing possible tiny acute infarction, positive for tiny foci of ischemic change in the left frontal convexity, right parietal, deep periventricular white matter, and right inferior cerebral hemisphere. EKG obtained on 07/04/2017 reveals sinus rhythm with borderline left axis deviation. Consider inferior infarction. Echocardiogram obtained on 07/06/2017 reveals 2/4 mild to moderate diastolic dysfunction with suboptimal quality, with visuals of the valves. EKG obtained on 07/12/2017 reveals sinus rhythm. PHYSICAL EXAMINATION: GENERAL: On examination, the patient is a well-developed, reasonably nourished 82-year-old female who is awake, alert, but sleepy. She does not appear to be in any acute distress. VITAL SIGNS: Temperature is 97.1, pulse 81, respirations 24, blood pressure is 166/85, oxygen saturation 96% on 2 liters nasal cannula. SKIN: Warm, dry. No rash. She is not diaphoretic. HEENT: Pupils equal, round, reactive to light and accommodation. Conjunctivae are pink. No evidence of JVP. CVS: Heart is regular. No murmur or rub. CHEST: Clear, symmetrical, unlabored. ABDOMEN: Soft, nontender, nondistended. BACK: No CVA tenderness or sacral edema. EXTREMITIES: No clubbing, cyanosis or edema. PSYCHIATRIC: The patient is somewhat delayed, but does have appropriate affect. HISTORY OF PRESENT ILLNESS: The patient is an 82-year-old female with a past medical history of a previous CVA, as well as hypertension. The patient presented to the emergency department with a chief complaint of syncopal episode, which was witnessed over 2 minutes, with hypoxia, with oxygen saturation of 88% on room air per the ED physician. The patient was unable to provide any history, so at the time of presentation, history was obtained from the daughter and the ED physician's notes. The patient used to live [id number], and recently located to live with her daughter here in [place]. According to the patient's daughter, the patient was at her baseline and was having dinner last night. The patient had a bowel movement, and her daughter was helping the patient sit down, when she noticed her mother was stiff, with her eyes wide open, staring into space. No incontinence. No biting of the tongue. No frothing at the mouth. The patient's son-in-law noticed that the patient's right arm was shaking. The patient's episode lasted about 10 minutes, and the patient became diaphoretic, and immediately came to, and stated that she was nauseous and not feeling well. The patient also seemed to be somewhat confused, according to her daughter. Therefore, she notified EMS. Upon arrival by EMS, they found the patient to be somewhat hypoxic. She was started on 2 liters nasal cannula. The patient did not have any fevers. The patient has a chronic cough, but had no recent sick contacts or profound sputum. The patient had had her flu vaccine. The patient denied any chest or abdominal pain. No shortness of breath that was out of context for her. The patient is incontinent of urine at times, but denies any dysuria or hematuria. Given the findings, the patient was referred to the hospital for admission and management. HOSPITAL COURSE: The patient was admitted to [facility]. The patient underwent a workup for CVA, which would include MRI/MRA of the brain, which showed old changes, as well as carotid Doppler, which was unremarkable, and a suboptimal echocardiogram. The patient's initial set of blood and urine cultures were unremarkable, and the patient was treated symptomatically as well for COPD exacerbation. The patient had complete symptom improvement, and was actually slated for discharge on 07/09/2017. However, the patient became profoundly hypotensive, tachycardic, and had evidence of septic shock, and was actually transferred to the intensive care unit. The patient did require 24 hours of vasopressors, as well as did receive an additional sepsis bolus. The patient's white count was found to be 28.4, which was neutrophilic dominant. The patient, as well, was started on broad spectrum antibiotic coverage. The patient's blood cultures revealed MSSA staph, and outside consultation with Infectious Disease recommended the patient be transitioned to cefazolin, which was done on 07/16/2017. However, the patient's followup cultures obtained on 07/15/2017 have again grown gram-positive cocci, in spite of this treatment, and a NADER is not available at this facility. While the patient was in the intensive care unit, the patient was noted to have significant changes in her mental status on 07/13/2017, after the patient had been transferred down to the intensive care unit on 07/09/2017. MRI imaging at that time was consistent with possible embolic etiology, as there were multiple tiny areas involved. Given the patient's persistent bacteremia, there is suspicion for septic emboli. On admission, the patient was initially found to be somewhat hypoxic. The day following admission, the patient did receive a CTA of the chest, and findings were consistent with bilateral pulmonary emboli. The patient was started on Eliquis, and given the patient's findings on MRI that were consistent with what appeared to be embolic etiology, it appears the patient has been an Eliquis failure. The case was discussed with Neurology at [facility], and recommendation has been made to start the patient on a low dose heparin drip and to stop oral anticoagulation, given the patient has failed such. I do appreciate Dr. Brothers's input with this. Given that the patient would benefit from urological evaluation as well as cardiac input for NADER, and eval of possible endocarditis, the patient would benefit from tertiary transfer. [facility], whom I graciously appreciate her input with this, and for participating in the care of this patient. TRANSFER PLANNING: [facility] Time spent on this transfer, including assessment, plan, physical examination, patient education, review of records and family meeting, is 90 minutes. DICTATING PHYSICIAN: KAREEM ZACARIAS NP [id number] PHY#: [id number] ID: [id number] JOB#: [id number] ACCT: [id number] cc:KAREEM ZACARIAS NP > [facility]
[2017-07-16] MEDS: HEPARIN SODIUM,PORCINE/D5W 25,000 UNIT/250 ML RTUINJ IV PRN (18:49)
--- NOTE | 2017-07-16 19:05 | RADIOLOGY REPORT (SQ) ---
EXAM DESCRIPTION: KNEE RIGHT 2 VIEWS COMPLETED DATE/TIME: 07/16/2017 6:58 pm REASON FOR STUDY: infection COMPARISON: None. NUMBER OF VIEWS: Two views. TECHNIQUE: AP and lateral radiographic images acquired of the right knee. LIMITATIONS: None. FINDINGS: MINERALIZATION: Normal. BONES: Total knee replacement. Device appears appropriate JOINT: No effusion. SOFT TISSUES: No soft tissue swelling. No radio-opaque foreign body. OTHER: No other significant finding. IMPRESSION: No acute findings. Total knee arthroplasty. TECHNICAL DOCUMENTATION: JOB ID: [id number] [employer]- All Rights Reserved Reading location - IP/workstation name: [email or web address]
[2017-07-16] MEDS ORDERED: LACTOBACILLUS ACIDOPHILUS 250 MG TAB PO ONE (19:30)
[2017-07-16] MEDS ORDERED: HEPARIN SOD (PORCINE) 1,000 UNIT/ML 10 ML VIAL IV PRN (19:32)
--- NOTE | 2017-07-16 20:54 | PROGRESS NOTE E ---
Progress Note NAME: RAFAELA RHODES : 1935 AGE: 82Y DATE: 07/16/2017 ROOM: 305 SUBJECTIVE: The patient is lying in bed. The patient is awake, alert. Is being fed by her family and seems to be at her new baseline. Had a lengthy discussion with the family on 2 separate occasions today regarding the patient's overall condition and prognosis, and so forth. Discussed the case with a tertiary center, [facility], with Neurology, as well as Infectious Disease. The patient did have a set of positive blood cultures on 07/13/2017 that were positive for Staph aureus. Patient has also now had a second set of blood cultures, which were gram-positive cocci, in spite of the patient being on current management. Discussed any indwelling illness the patient has. The patient has had a right total knee arthroscopy, and has had recent dental work. She did take pre-antibiotics for her dental work. The patient has also had bilateral cataract surgery recently. There is no overt source for the patient's bacteremia. Concern possibly for an indwelling line; however, even though the patient appears to have had a septic emboli, a CVA, the patient would benefit from both NADER as well as neurological evaluation, and this is the consensus. The patient has been accepted at [facility] as soon as a bed is made available. The patient does appear to be a failure of Eliquis, and recommendations of Neurology are to start the patient on a low dose heparin drip, which of course is not a treatment dose for the patient's PEs. This is concerning, and again, the patient would benefit from tertiary management. I have discussed each of these aspects with the tertiary center, and will continue the current course of treatment ordered, but transition over to a heparin drip. No other concerns are voiced at this time. REVIEW OF SYSTEMS: Negative. MEDICATIONS: Reviewed. OBJECTIVE: GENERAL: The patient is an 82-year-old female, who is awake, alert and oriented to person, place, time and situation. She is verbal, conversational. Does not appear to be in distress. VITAL SIGNS: Temperature 98.0, pulse 79, respirations 24, blood pressure 136/72, oxygen saturation is 97% on 2 liters nasal cannula. SKIN: Pale, dry. No rashes. Not diaphoretic. HEENT: Pupils equal, round and reactive to light and accommodation. Conjunctivae are pink. No evidence of JVP. CVS: Heart is regular. There is no murmur or rub. LUNGS: Clear, symmetrical, unlabored. ABDOMEN: Soft, nontender, nondistended. BACK: No CVA tenderness or sacral edema. EXTREMITIES: No clubbing, cyanosis or edema. PSYCHIATRIC: Appropriate affect, pleasant mood. DIAGNOSTICS: Lab values are as follows: Hematology obtained on 07/16/2017: WBCs are 10.5, hemoglobin is 13.0, hematocrit is 37.9, platelet count is 160,000. Chemistry obtained on 07/16/2017: Sodium 145, potassium 4.5, chloride is 102, carbon dioxide 25, BUN 37, creatinine is 0.5, glucose 145, calcium is 8.3. Magnesium is 1.8. IMPRESSION AND PLAN: 1. MSSA BACTEREMIA WITH PERSISTENT POSITIVE BLOOD CULTURES. Will repeat cultures. I have discussed the case with Infectious Disease. Will start the patient on transition over to [facility] and follow. 2. SEPTIC SHOCK, SECONDARY TO #1, WHICH HAS IMPROVED. 3. BILATERAL PULMONARY EMBOLI. The patient appeared to have failed Eliquis. She is currently going to be on low dose heparin drip. 4. EMBOLIC CVA IN THE SETTING OF KNOWN CEREBROVASCULAR DISEASE. Is worrisome for septic emboli. At this time, the patient will be transferred for NADER. 5. SEIZURE-LIKE ACTIVITY. The patient's EEG was nonspecific. Further workup as per Neurology. Will continue anti-epileptics at this time. 6. CHRONIC OBSTRUCTIVE PULMONARY DISEASE. The patient is stable on current O2. 7. ACUTE ON CHRONIC HYPOXEMIC RESPIRATORY FAILURE, SECONDARY TO THE ABOVE. 8. METABOLIC ENCEPHALOPATHY. The patient overall appears improved. 9. PREDIABETES, WITH AN A1C OF 6.3. 10. HYPERTENSION. Blood pressure is an acceptable range. 11. OBESITY, WITH A BMI OF 37. The patient has been counseled. DISPOSITION: The patient is a FULL CODE. Pending patient's symptomatology and diagnostic findings, patient will be reevaluated as needed. The patient has been accepted to the Hospitalist service at [facility]. Please see our transfer summary. Time spent on this followup, including assessment, plan, physical examination, patient education, review of records, and 2 separate family meetings, was 35 minutes. DICTATING PHYSICIAN: KAREEM ZACARIAS NP [id number] PHY#: [id number] ID: [id number] JOB#: [id number] ACCT: [id number] cc: > MTDD
[2017-07-16] MEDS: OXYCODONE HCL IR 5 MG TABLET PO PRN (21:21)
[2017-07-16] MEDS: CITALOPRAM HYDROBROMIDE 20 MG TABLET PO SCH (21:22)
[2017-07-16] MEDS: ATORVASTATIN CALCIUM 20 MG TABLET PO SCH (21:22)
[2017-07-17] MEDS: OXYCODONE HCL IR 5 MG TABLET PO PRN ×2 (02:58→21:57)
[2017-07-17] MEDS: CEFAZOLIN SODIUM 2 GM in DEXTROSE 5%-WATER 100 ML IV SCH ×3 (05:21→22:06)
[2017-07-17] MEDS: GABAPENTIN 100 MG CAPSULE PO SCH ×3 (05:22→21:57)
[2017-07-17] MEDS: DILTIAZEM HCL 30 MG TABLET PO SCH ×3 (05:22→21:56)
[2017-07-17] MEDS: LANSOPRAZOLE 30 MG TAB.RAP.DR PO SCH (05:22)
[2017-07-17] MEDS: LACTOBACILLUS ACIDOPHILUS 250 MG TAB PO SCH ×2 (10:47→17:16)
[2017-07-17] MEDS: PREDNISOLONE ACETATE 1% OPH SUSP 5 ML OS SCH (10:49)
[2017-07-17] MEDS: LOSARTAN POTASSIUM 50 MG TABLET PO SCH ×2 (10:49→21:56)
[2017-07-17] MEDS: POTASSIUM CHLORIDE 10 MEQ TABLET.SA PO SCH (10:49)
--- NOTE | 2017-07-17 12:25 | PDOC PROGRESS REPORT ---
Subjective Progress Note for:: 07/17/17 Subjective:: Patient has positive blood cultures despite being on appropriate antibiotics. She does have a history of right total knee arthroscopy and has had recent dental work done. Is a suspicion for possible septic emboli and so she is awaiting transfer to [facility]. Is currently on low-dose heparin drip as per the recommendation of the neurologist. This is recognized as a sub optimal treatment of a PE but in this situation appears to be the best choice. Reason For Visit: COPD EXACERBATION Physical Exam Vital Signs: Temp Pulse Resp BP Pulse Ox 97.4 F 77 16 110/57 L 96 07/17/17 07:47 07/17/17 07:47 07/17/17 07:47 07/17/17 07:47 07/17/17 07:47 Intake & Output 07/16/17 07/17/17 07/18/17 06:59 06:59 06:59 Intake Total 808 2333 Output Total 550 Balance 258 2333 Weight 105.2 kg 111.3 kg General appearance: PRESENT: no acute distress, obese, well-developed, well- nourished Head exam: PRESENT: atraumatic, normocephalic Eye exam: PRESENT: PERRLA. ABSENT: scleral icterus Ear exam: PRESENT: normal external ear exam Mouth exam: PRESENT: moist Neck exam: ABSENT: carotid bruit, JVD, lymphadenopathy, thyromegaly Respiratory exam: PRESENT: clear to auscultation claudia. ABSENT: rales, rhonchi, wheezes Cardiovascular exam: PRESENT: RRR. ABSENT: diastolic murmur, rubs, systolic murmur GI/Abdominal exam: PRESENT: normal bowel sounds, soft. ABSENT: distended, guarding, mass, organolmegaly, rebound, tenderness Rectal exam: PRESENT: deferred Extremities exam: PRESENT: full ROM. ABSENT: calf tenderness, clubbing, pedal edema Neurological exam: PRESENT: alert, awake. ABSENT: motor sensory deficit Psychiatric exam: PRESENT: appropriate affect. ABSENT: homicidal ideation, suicidal ideation Skin exam: PRESENT: dry, intact, warm. ABSENT: cyanosis, rash Results Laboratory Results: 07/16/17 17:00 07/16/17 12:40 07/16/17 07/16/17 07/16/17 12:40 17:00 20:30 WBC 10.5 RBC 4.04 Hgb 13.0 Hct 37.9 MCV 94 MCH 32.1 MCHC 34.2 RDW 13.7 Plt Count 160 Seg Neutrophils % Not Reportable Lymphocytes % Not Reportable Monocytes % Not Reportable Eosinophils % Not Reportable Basophils % Not Reportable Absolute Neutrophils Not Reportable Absolute Lymphocytes Not Reportable Absolute Monocytes Not Reportable Absolute Eosinophils Not Reportable Absolute Basophils Not Reportable Creatinine 0.70 Est GFR ( Amer) > 60 Est GFR (Non-Af Amer) > 60 Stool Occult Blood POSITIVE 07/13/17 01:42 Blood Blood Culture - Final Staphylococcus Aureus 07/05/17 07/05/17 07/05/17 02:51 07:26 15:55 Creatine Kinase CK-MB (CK-2) Troponin I 0.022 0.177 Cancelled NT-Pro-B Natriuret Pep 07/05/17 07/05/17 07/05/17 16:50 23:15 23:15 Creatine Kinase 86 CK-MB (CK-2) 4.62 H Troponin I 0.482 0.708 NT-Pro-B Natriuret Pep 07/06/17 07/06/17 07/06/17 05:30 05:30 12:08 Creatine Kinase 84 70 CK-MB (CK-2) 5.47 H Troponin I 0.642 NT-Pro-B Natriuret Pep 07/06/17 07/07/17 07/11/17 12:08 04:42 04:31 Creatine Kinase < 20 L CK-MB (CK-2) 4.98 H Troponin I 0.598 0.400 NT-Pro-B Natriuret Pep 07/12/17 07/12/17 07/13/17 20:55 20:55 03:30 Creatine Kinase 47 60 CK-MB (CK-2) 1.48 Troponin I 0.446 NT-Pro-B Natriuret Pep 2510 H 07/13/17 07/13/17 07/13/17 03:30 09:05 09:05 Creatine Kinase 79 CK-MB (CK-2) 1.81 1.79 Troponin I 0.793 0.647 NT-Pro-B Natriuret Pep Impressions: Head CT 07/04/17 20:09 IMPRESSION: No intracranial hemorrhage or mass effect. Few scattered Areas of low density in the white matter most likely due to chronic micro-vascular ischemic change. No evidence for large vessel acute infarction. EVIDENCE OF ACUTE STROKE: No Chest/Abdomen CTA 07/05/17 00:00 IMPRESSION: Positive for bilateral pulmonary emboli. Brain MRI with MRA 07/05/17 09:25 IMPRESSION: NORMAL MRA OF THE [place]. Venous Doppler Study 07/06/17 00:00 IMPRESSION: PARTIALLY OCCLUSIVE THROMBUS IN THE PROXIMAL RIGHT FEMORAL VEIN. NO EVIDENCE OF DEEP VENOUS THROMBOSIS IN THE LEFT LEG. Carotid Doppler Study 07/06/17 09:14 IMPRESSION: NO HEMODYNAMICALLY SIGNIFICANT STENOSIS. Chest X-Ray 07/13/17 00:00 IMPRESSION: NO ACUTE INFILTRATES. Head MRI 07/13/17 00:00 IMPRESSION: No abnormal contrast enhancement is identified on post gadolinium images Several tiny foci of ischemic change on the diffusion-weighted images as above. Report discussed with Dr. Coughlin, patient's attending physician at the time of dictation EVIDENCE OF ACUTE STROKE: NO. Knee X-Ray 07/16/17 00:00 IMPRESSION: No acute findings. Total knee arthroplasty. Assessment & Plan - Time Time Spent with patient: 15-24 minutes Medications reviewed and adjusted accordingly: Yes Anticipated discharge: [facility]: within 48 hours - Plan Summary Plan Summary: MSSA bacteremia with persistently positive blood cultures. We will continue with current antibiotics meanwhile awaiting transfer to a tertiary care center. 2. Septic shock secondary to above which is resolved 3. Bilateral pulmonary emboli while patient was on Eliquis. She is currently on low-dose heparin drip 4. Embolic CVA worrisome for septic emboli. Patient is awaiting transfer she will need a NADER 5. [facility] 6. 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 Acute hypoxemic respiratory failure secondary to COPD 8. Metabolic encephalopathy apparently improved 9. Prediabetes AIC of 6.3 10. Hypertension controlled 11. Obesity with BMI of 37
[2017-07-17] MEDS: INSULIN LISPRO 100 UNIT/ML 3 ML VIAL SUBCUT PRN ×2 (12:55→22:03)
[2017-07-17] MEDS: HEPARIN SODIUM,PORCINE/D5W 25,000 UNIT/250 ML RTUINJ IV PRN (17:16)
[2017-07-17] MEDS: ATORVASTATIN CALCIUM 20 MG TABLET PO SCH (21:56)
[2017-07-17] MEDS: CITALOPRAM HYDROBROMIDE 20 MG TABLET PO SCH (21:56)
[2017-07-18] MEDS: OXYCODONE HCL IR 5 MG TABLET PO PRN (02:10)
[2017-07-18] MEDS: CEFAZOLIN SODIUM 2 GM in DEXTROSE 5%-WATER 100 ML IV SCH ×3 (05:20→21:46)
[2017-07-18] MEDS: GABAPENTIN 100 MG CAPSULE PO SCH ×3 (06:11→21:37)
[2017-07-18] MEDS: LANSOPRAZOLE 30 MG TAB.RAP.DR PO SCH (06:11)
[2017-07-18] MEDS: DILTIAZEM HCL 30 MG TABLET PO SCH ×3 (06:11→21:37)
[2017-07-18] MEDS: POTASSIUM CHLORIDE 10 MEQ TABLET.SA PO SCH (10:36)
[2017-07-18] MEDS: LACTOBACILLUS ACIDOPHILUS 250 MG TAB PO SCH ×2 (10:36→17:53)
[2017-07-18] MEDS: LOSARTAN POTASSIUM 50 MG TABLET PO SCH (10:37)
[2017-07-18] MEDS: PREDNISOLONE ACETATE 1% OPH SUSP 5 ML OS SCH (10:37)
--- NOTE | 2017-07-18 11:06 | PDOC PROGRESS REPORT ---
Subjective Progress Note for:: 07/18/17 Subjective:: Patient has positive blood cultures despite being on appropriate antibiotics. She does have a history of right total knee arthroscopy and has had recent dental work done. Is a suspicion for possible septic emboli and so she is awaiting transfer to [facility]. Is currently on low-dose heparin drip as per the recommendation of the neurologist. This is recognized as a sub optimal treatment of a PE but in this situation appears to be the best choice. Reason For Visit: COPD EXACERBATION Physical Exam Vital Signs: Temp Pulse Resp BP Pulse Ox 97.4 F 74 20 104/52 L 95 07/18/17 07:20 07/18/17 07:20 07/18/17 07:20 07/18/17 07:20 07/18/17 07:20 Intake & Output 07/17/17 07/18/17 07/19/17 06:59 06:59 06:59 Intake Total 2333 2812 Balance 2333 2812 Weight 111.3 kg 113.3 kg General appearance: PRESENT: no acute distress, well-developed, well-nourished Head exam: PRESENT: atraumatic Ear exam: PRESENT: normal external ear exam Respiratory exam: PRESENT: decreased breath sounds, rhonchi Cardiovascular exam: PRESENT: RRR. ABSENT: diastolic murmur, rubs, systolic murmur GI/Abdominal exam: PRESENT: normal bowel sounds, soft. ABSENT: distended, guarding, mass, organolmegaly, rebound, tenderness Extremities exam: PRESENT: +1 edema Neurological exam: PRESENT: alert, awake, oriented to person, oriented to place , oriented to situation Results Laboratory Results: 07/16/17 17:00 07/16/17 12:40 07/15/17 08:53 Blood Blood Culture - Final Staphylococcus Aureus 07/05/17 07/05/17 07/05/17 02:51 07:26 15:55 Creatine Kinase CK-MB (CK-2) Troponin I 0.022 0.177 Cancelled NT-Pro-B Natriuret Pep 07/05/17 07/05/17 07/05/17 16:50 23:15 23:15 Creatine Kinase 86 CK-MB (CK-2) 4.62 H Troponin I 0.482 0.708 NT-Pro-B Natriuret Pep 07/06/17 07/06/1718 05:30 05:30 12:08 Creatine Kinase 84 70 CK-MB (CK-2) 5.47 H Troponin I 0.642 NT-Pro-B Natriuret Pep 07/06/17 07/07/17 07/11/17 12:08 04:42 04:31 Creatine Kinase < 20 L CK-MB (CK-2) 4.98 H Troponin I 0.598 0.400 NT-Pro-B Natriuret Pep 07/12/17 07/12/17 07/13/17 20:55 20:55 03:30 Creatine Kinase 47 60 CK-MB (CK-2) 1.48 Troponin I 0.446 NT-Pro-B Natriuret Pep 2510 H 07/13/17 07/13/17 07/13/17 03:30 09:05 09:05 Creatine Kinase 79 CK-MB (CK-2) 1.81 1.79 Troponin I 0.793 0.647 NT-Pro-B Natriuret Pep Impressions: Head CT 07/04/17 20:09 IMPRESSION: No intracranial hemorrhage or mass effect. Few scattered Areas of low density in the white matter most likely due to chronic micro-vascular ischemic change. No evidence for large vessel acute infarction. EVIDENCE OF ACUTE STROKE: No Chest/Abdomen CTA 07/05/17 00:00 IMPRESSION: Positive for bilateral pulmonary emboli. Brain MRI with MRA 07/05/17 09:25 IMPRESSION: NORMAL MRA OF THE [place]. Venous Doppler Study 07/06/17 00:00 IMPRESSION: PARTIALLY OCCLUSIVE THROMBUS IN THE PROXIMAL RIGHT FEMORAL VEIN. NO EVIDENCE OF DEEP VENOUS THROMBOSIS IN THE LEFT LEG. Carotid Doppler Study 07/06/17 09:14 IMPRESSION: NO HEMODYNAMICALLY SIGNIFICANT STENOSIS. Chest X-Ray 07/13/17 00:00 IMPRESSION: NO ACUTE INFILTRATES. Head MRI 07/13/17 00:00 IMPRESSION: No abnormal contrast enhancement is identified on post gadolinium images Several tiny foci of ischemic change on the diffusion-weighted images as above. Report discussed with Dr. Coughlin, patient's attending physician at the time of dictation EVIDENCE OF ACUTE STROKE: NO. Knee X-Ray 07/16/17 00:00 IMPRESSION: No acute findings. Total knee arthroplasty. Assessment & Plan - Time Time Spent with patient: 15-24 minutes Medications reviewed and adjusted accordingly: Yes Anticipated discharge: [facility]: when bed available - Inpatient Certification Based on my medical assessment, after consideration of the patient's comorbidities, presenting symptoms, or acuity I expect that the services needed warrant INPATIENT care.: Yes Medical Necessity: Risk of Complication if Not Cared For in Hospital - Plan Summary Plan Summary: 1. MSSA bacteremia with persistently positive blood cultures. continue with current antibiotics meanwhile awaiting transfer to [facility] 2. Septic shock secondary to above - resolved 3. Bilateral pulmonary emboli while patient was on Eliquis. Cont low-dose heparin drip 4. 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 Patient is awaiting transfer she will need a NADER 5. [facility] was nons[facility] 6. 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 Acute hypoxemic respiratory failure secondary to COPD 8. Metabolic encephalopathy apparently improved 9. Prediabetes AIC of 6.3 10. Hypertension controlled 11. Obesity with BMI of 37
[2017-07-18] MEDS ORDERED: LOSARTAN POTASSIUM 50 MG TABLET PO SCH (11:15)
[2017-07-18] MEDS: HEPARIN SODIUM,PORCINE/D5W 25,000 UNIT/250 ML RTUINJ IV PRN (17:53)
[2017-07-18] MEDS: NYSTATIN TOPICAL POWDER 15 GM TP SCH (17:58)
[2017-07-18] MEDS ORDERED: GUAIFENESIN 600 MG TABLET.SA PO ONE (20:00)
--- NOTE | 2017-07-18 20:29 | RADIOLOGY REPORT (SQ) ---
EXAM DESCRIPTION: CHEST SINGLE VIEW COMPLETED DATE/TIME: 07/18/2017 8:19 pm REASON FOR STUDY: Assess increased congestion COMPARISON: 07/13/2017. NUMBER OF VIEWS: One view. TECHNIQUE: Single frontal radiographic view of the chest acquired. LIMITATIONS: None. FINDINGS: LUNGS AND PLEURA: Relatively low lung volumes with basilar vascular crowding and probably some scar. Similar appearance compared to prior without clear developing infiltrates or failure. MEDIASTINUM AND HILAR STRUCTURES: No masses. Contour normal. HEART AND VASCULAR STRUCTURES: Heart normal in size. Normal vasculature. BONES: No acute findings. HARDWARE: None in the chest. OTHER: No other significant finding. IMPRESSION: Stable chest without developing failure or pneumonia suggested. TECHNICAL DOCUMENTATION: JOB ID: [id number] [employer]- All Rights Reserved Reading location - IP/workstation name: [email or web address]
[2017-07-18] MEDS ORDERED: FUROSEMIDE INJ/PF 40 MG/4 ML SDV IV ONE (21:30)
[2017-07-18] MEDS: CITALOPRAM HYDROBROMIDE 20 MG TABLET PO SCH (21:37)
[2017-07-18] MEDS: ATORVASTATIN CALCIUM 20 MG TABLET PO SCH (21:37)
[2017-07-18] MEDS: LOSARTAN POTASSIUM 25 MG TABLET PO SCH (21:52)
[2017-07-18 23:00] LABS: AMORPHOUS SEDIMENT,URINE TRACE /HPF; APPEARANCE,URINE SLIGHTLY-CLOUDY; BILIRUBIN,URINE NEGATIVE (NEGATIVE); COLOR,URINE STRAW; GLUCOSE, URINE NEGATIVE (NEGATIVE); KETONES,URINE NEGATIVE (NEGATIVE); LEUKOCYTE ESTERASE,URINE NEGATIVE (NEGATIVE); NITRITE,URINE NEGATIVE (NEGATIVE); PROTEIN,URINE NEGATIVE (NEGATIVE); URINE SPECIFIC GRAVITY 1.006; UROBILINOGEN,URINE NEGATIVE mg/dL (<2.0)
[2017-07-19] MEDS: CEFAZOLIN SODIUM 2 GM in DEXTROSE 5%-WATER 100 ML IV SCH ×3 (05:36→22:14)
[2017-07-19] MEDS: LANSOPRAZOLE 30 MG TAB.RAP.DR PO SCH (06:40)
[2017-07-19] MEDS: DILTIAZEM HCL 30 MG TABLET PO SCH ×3 (06:40→22:13)
[2017-07-19] MEDS: GABAPENTIN 100 MG CAPSULE PO SCH ×3 (06:41→22:13)
[2017-07-19] MEDS: POTASSIUM CHLORIDE 10 MEQ TABLET.SA PO SCH (10:08)
[2017-07-19] MEDS: LACTOBACILLUS ACIDOPHILUS 250 MG TAB PO SCH ×2 (10:09→18:03)
[2017-07-19] MEDS: LOSARTAN POTASSIUM 25 MG TABLET PO SCH ×2 (10:09→22:13)
[2017-07-19] MEDS: GUAIFENESIN 600 MG TABLET.SA PO SCH ×2 (10:09→18:03)
[2017-07-19] MEDS: PREDNISOLONE ACETATE 1% OPH SUSP 5 ML OS SCH (10:10)
[2017-07-19] MEDS: NYSTATIN TOPICAL POWDER 15 GM TP SCH ×2 (10:10→18:15)
[2017-07-19] MEDS ORDERED: FUROSEMIDE 40 MG TABLET PO ONE (11:30)
[2017-07-19 12:47] LABS: HEMATOCRIT 36.4 % (36.0-47.0); HEMOGLOBIN 12.3 g/dL (12.0-15.5); MEAN CORPUSCULAR HEMOGLOBIN 31.7 pg (27.0-33.4); MEAN CORPUSCULAR HGB CONC 33.8 g/dL (32.0-36.0); MEAN CORPUSCULAR VOLUME 94 fl (80-97); PLATELET COUNT 171 10^3/uL (150-450); RED BLOOD COUNT 3.89 10^6/uL (3.72-5.28); RED CELL DISTRIBUTION WIDTH 13.6 % (11.5-14.0); WHITE BLOOD COUNT 12.8 10^3/uL (4.0-10.5)
--- NOTE | 2017-07-19 13:33 | PDOC PROGRESS REPORT ---
Subjective Progress Note for:: 07/19/17 Subjective:: Patient has positive blood cultures despite being on appropriate antibiotics. She does have a history of right total knee arthroscopy and has had recent dental work done. Is a suspicion for possible septic emboli and so she is awaiting transfer to [facility]. Is currently on low-dose heparin drip as per the recommendation of the neurologist. This is recognized as a sub optimal treatment of a PE but in this situation appears to be the best choice. Reason For Visit: COPD EXACERBATION Physical Exam Vital Signs: Temp Pulse Resp BP Pulse Ox 98.2 F 78 26 H 120/74 96 07/19/17 11:28 07/19/17 11:28 07/19/17 11:28 07/19/17 11:28 07/19/17 11:28 Intake & Output 07/18/17 07/19/17 07/20/17 06:59 06:59 06:59 Intake Total 2812 2807 Balance 2812 2807 Weight 113.3 kg 112.5 kg General appearance: PRESENT: no acute distress Head exam: PRESENT: atraumatic Eye exam: PRESENT: conjunctiva pink, EOMI, PERRLA. ABSENT: scleral icterus Mouth exam: PRESENT: moist, tongue midline Neck exam: PRESENT: carotid bruit Respiratory exam: PRESENT: clear to auscultation claudia. ABSENT: rales, rhonchi, wheezes Cardiovascular exam: PRESENT: RRR. ABSENT: diastolic murmur, rubs, systolic murmur GI/Abdominal exam: PRESENT: normal bowel sounds, soft. ABSENT: distended, guarding, mass, organolmegaly, rebound, tenderness Rectal exam: PRESENT: deferred Extremities exam: PRESENT: full ROM. ABSENT: calf tenderness, clubbing, pedal edema Neurological exam: PRESENT: alert, awake, oriented to person, oriented to time, oriented to situation Results Laboratory Results: 07/19/17 11:20 07/16/17 12:40 07/18/17 07/19/17 22:20 11:20 WBC 12.8 H RBC 3.89 Hgb 12.3 Hct 36.4 MCV 94 MCH 31.7 MCHC 33.8 RDW 13.6 Plt Count 171 Urine Color STRAW Urine Appearance SLIGHTLY-CLOUDY Urine pH 5.0 Ur Specific [place] 1.006 Urine Protein NEGATIVE Urine Glucose (UA) NEGATIVE Urine Ketones NEGATIVE Urine Blood SMALL H Urine Nitrite NEGATIVE Ur Leukocyte Esterase NEGATIVE Urine WBC (Auto) 3 Urine RBC (Auto) 3 07/15/17 08:53 Blood Blood Culture - Final Staphylococcus Aureus 07/05/17 07/05/17 07/05/17 02:51 07:26 15:55 Creatine Kinase CK-MB (CK-2) Troponin I 0.022 0.177 Cancelled NT-Pro-B Natriuret Pep 07/05/17 07/05/17 07/05/17 16:50 23:15 23:15 Creatine Kinase 86 CK-MB (CK-2) 4.62 H Troponin I 0.482 0.708 NT-Pro-B Natriuret Pep 07/06/17 07/06/17 07/06/17 05:30 05:30 12:08 Creatine Kinase 84 70 CK-MB (CK-2) 5.47 H Troponin I 0.642 NT-Pro-B Natriuret Pep 07/06/17 07/07/17 07/11/17 12:08 04:42 04:31 Creatine Kinase < 20 L CK-MB (CK-2) 4.98 H Troponin I 0.598 0.400 NT-Pro-B Natriuret Pep 07/12/17 07/12/17 07/13/17 20:55 20:55 03:30 Creatine Kinase 47 60 CK-MB (CK-2) 1.48 Troponin I 0.446 NT-Pro-B Natriuret Pep 2510 H 07/13/17 07/13/17 07/13/17 03:30 09:05 09:05 Creatine Kinase 79 CK-MB (CK-2) 1.81 1.79 Troponin I 0.793 0.647 NT-Pro-B Natriuret Pep Impressions: Head CT 07/04/17 20:09 IMPRESSION: No intracranial hemorrhage or mass effect. Few scattered Areas of low density in the white matter most likely due to chronic micro-vascular ischemic change. No evidence for large vessel acute infarction. EVIDENCE OF ACUTE STROKE: No Chest/Abdomen CTA 07/05/17 00:00 IMPRESSION: Positive for bilateral pulmonary emboli. Brain MRI with MRA 07/05/17 09:25 IMPRESSION: NORMAL MRA OF THE [place]. Venous Doppler Study 07/06/17 00:00 IMPRESSION: PARTIALLY OCCLUSIVE THROMBUS IN THE PROXIMAL RIGHT FEMORAL VEIN. NO EVIDENCE OF DEEP VENOUS THROMBOSIS IN THE LEFT LEG. Carotid Doppler Study 07/06/17 09:14 IMPRESSION: NO HEMODYNAMICALLY SIGNIFICANT STENOSIS. Head MRI 07/13/17 00:00 IMPRESSION: No abnormal contrast enhancement is identified on post gadolinium images Several tiny foci of ischemic change on the diffusion-weighted images as above. Report discussed with Dr. Coughlin, patient's attending physician at the time of dictation EVIDENCE OF ACUTE STROKE: NO. Knee X-Ray 07/16/17 00:00 IMPRESSION: No acute findings. Total knee arthroplasty. Chest X-Ray 07/18/17 00:00 IMPRESSION: Stable chest without developing failure or pneumonia suggested. Assessment & Plan - Inpatient Certification Based on my medical assessment, after consideration of the patient's comorbidities, presenting symptoms, or acuity I expect that the services needed warrant INPATIENT care.: Yes Medical Necessity: Need for IV Antibiotics - Plan Summary Plan Summary: 1. MSSA bacteremia with persistently positive blood cultures. continue with current antibiotics meanwhile. Still awaiting transfer to [facility] 2. Septic shock secondary to above - resolved 3. Bilateral pulmonary emboli while patient was on Eliquis. Cont low-dose heparin drip 4. 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 Patient is awaiting transfer she needs NADER 5. [facility] 6. 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 Acute hypoxemic respiratory failure secondary to COPD 8. Metabolic encephalopathy apparently improved 9. Prediabetes AIC of 6.3 10. Hypertension controlled 11. Obesity with BMI of 37
[2017-07-19] MEDS: INSULIN LISPRO 100 UNIT/ML 3 ML VIAL SUBCUT PRN (18:07)
[2017-07-19] MEDS: HEPARIN SODIUM,PORCINE/D5W 25,000 UNIT/250 ML RTUINJ IV PRN (18:15)
[2017-07-19] MEDS: ZINC OXIDE 20% OINTMENT 28.35 GM TP PRN (21:50)
[2017-07-19] MEDS: ATORVASTATIN CALCIUM 20 MG TABLET PO SCH (22:13)
[2017-07-19] MEDS: CITALOPRAM HYDROBROMIDE 20 MG TABLET PO SCH (22:13)
[2017-07-20 03:33] LABS: HEMATOCRIT 35.6 % (36.0-47.0); HEMOGLOBIN 12.2 g/dL (12.0-15.5); MEAN CORPUSCULAR HEMOGLOBIN 31.9 pg (27.0-33.4); MEAN CORPUSCULAR HGB CONC 34.2 g/dL (32.0-36.0); MEAN CORPUSCULAR VOLUME 93 fl (80-97); PLATELET COUNT 178 10^3/uL (150-450); RED BLOOD COUNT 3.82 10^6/uL (3.72-5.28); RED CELL DISTRIBUTION WIDTH 13.6 % (11.5-14.0)
[2017-07-20 03:52] LABS: ABSOLUTE LYMPHOCYTES# (MANUAL) 1.9 10^3/uL (0.5-4.7); ABSOLUTE MONOCYTES # (MANUAL) 0.6 10^3/uL (0.1-1.4); ABSOLUTE NEUTROPHILS# (MANUAL) 9.2 10^3/uL (1.7-8.2); BAND NEUTROPHILS % (MANUAL) 3 % (3-5); BASOPHILS % (MANUAL) 0 % (0-2); EOSINOPHILS % (MANUAL) 2 % (0-6); LYMPHOCYTES % (MANUAL) 16 % (13-45); METAMYELOCYTES % (MANUAL) 1 % (0); MONOCYTES % (MANUAL) 5 % (3-13); SEGMENTED NEUTROPHILS % (MAN) 73 % (42-78); TOTAL CELLS COUNTED 100
[2017-07-20 03:53] LABS: PLATELET COMMENT ADEQUATE; RBC MORPHOLOGY COMMENT NORMO-CYTIC/CHROMIC
[2017-07-20 03:54] LABS: PLATELET LARGE PRESENT
[2017-07-20] MEDS: CEFAZOLIN SODIUM 2 GM in DEXTROSE 5%-WATER 100 ML IV SCH ×3 (05:28→22:27)
[2017-07-20] MEDS: DILTIAZEM HCL 30 MG TABLET PO SCH ×3 (05:36→22:12)
[2017-07-20] MEDS: GABAPENTIN 100 MG CAPSULE PO SCH ×3 (05:36→22:12)
[2017-07-20] MEDS: LANSOPRAZOLE 30 MG TAB.RAP.DR PO SCH (05:37)
[2017-07-20 06:52] LABS: BLOOD UREA NITROGEN 30 mg/dL (7-20); CALCIUM 8.2 mg/dL (8.4-10.2); CARBON DIOXIDE 36 mmol/L (22-30); CHLORIDE 95 mmol/L (98-107); GLUCOSE 141 mg/dL (75-110); POTASSIUM 4.2 mmol/L (3.6-5.0); SODIUM 135.1 mmol/L (137-145)
[2017-07-20 07:02] LABS: ANION GAP 4 (5-19)
[2017-07-20] MEDS: PREDNISOLONE ACETATE 1% OPH SUSP 5 ML OS SCH (09:28)
[2017-07-20] MEDS: LACTOBACILLUS ACIDOPHILUS 250 MG TAB PO SCH ×2 (09:29→17:20)
[2017-07-20] MEDS: POTASSIUM CHLORIDE 10 MEQ TABLET.SA PO SCH (09:29)
[2017-07-20] MEDS: GUAIFENESIN 600 MG TABLET.SA PO SCH ×2 (09:29→17:20)
[2017-07-20] MEDS: ACETAMINOPHEN 325 MG TABLET PO PRN (09:30)
[2017-07-20] MEDS: NYSTATIN TOPICAL POWDER 15 GM TP SCH ×2 (09:31→17:21)
[2017-07-20] MEDS: LOSARTAN POTASSIUM 25 MG TABLET PO SCH ×2 (09:37→22:12)
[2017-07-20] MEDS: FUROSEMIDE 40 MG TABLET PO SCH (09:37)
[2017-07-20] MEDS ORDERED: FUROSEMIDE 20 MG TABLET PO ONE (10:45)
--- NOTE | 2017-07-20 13:22 | PDOC PROGRESS REPORT ---
Subjective Progress Note for:: 07/20/17 Subjective:: Patient has positive blood cultures despite being on appropriate antibiotics. She does have a history of right total knee arthroscopy and has had recent dental work done. Is a suspicion for possible septic emboli and so she is awaiting transfer to [facility]. Is currently on low-dose heparin drip as per the recommendation of the neurologist. This is recognized as a sub optimal treatment of a PE but in this situation appears to be the best choice. Patient has been awaiting transfer since 07/16 Reason For Visit: COPD EXACERBATION Physical Exam Vital Signs: Temp Pulse Resp BP Pulse Ox 97.0 F 80 22 H 105/59 L 96 07/20/17 11:31 07/20/17 11:31 07/20/17 11:31 07/20/17 11:31 07/20/17 11:31 Intake & Output 07/19/17 07/20/17 07/21/17 06:59 06:59 06:59 Intake Total 2807 1292 Balance 2807 1292 Weight 112.5 kg 105.5 kg General appearance: PRESENT: no acute distress, hard of hearing, obese Ear exam: PRESENT: normal external ear exam Neck exam: ABSENT: carotid bruit, JVD, lymphadenopathy, thyromegaly Respiratory exam: PRESENT: decreased breath sounds, unlabored. ABSENT: rhonchi , wheezes Cardiovascular exam: PRESENT: RRR, +S1, +S2 Pulses: PRESENT: normal dorsalis pedis pul GI/Abdominal exam: PRESENT: normal bowel sounds, soft. ABSENT: distended, guarding, mass, organolmegaly, rebound, tenderness Rectal exam: PRESENT: deferred Extremities exam: PRESENT: +1 edema Neurological exam: PRESENT: alert, awake, oriented to place Results Laboratory Results: 07/20/17 03:25 07/20/17 06:20 07/20/17 07/20/17 07/20/17 03:25 03:25 04:51 WBC 12.0 H RBC 3.82 Hgb 12.2 Hct 35.6 L MCV 93 MCH 31.9 MCHC 34.2 RDW 13.6 Plt Count 178 Seg Neutrophils % Not Reportable Lymphocytes % Not Reportable Monocytes % Not Reportable Eosinophils % Not Reportable Basophils % Not Reportable Absolute Neutrophils Not Reportable Absolute Lymphocytes Not Reportable Absolute Monocytes Not Reportable Absolute Eosinophils Not Reportable Absolute Basophils Not Reportable Sodium Cancelled Cancelled Potassium Cancelled Cancelled Chloride Cancelled Cancelled Carbon Dioxide Cancelled Cancelled Anion Gap Cancelled Cancelled BUN Cancelled Cancelled Creatinine Cancelled Cancelled Est GFR ( Amer) Cancelled Cancelled Est GFR (Non-Af Amer) Cancelled Cancelled Glucose Cancelled Cancelled Calcium Cancelled Cancelled 07/20/17 06:20 WBC RBC Hgb Hct MCV MCH MCHC RDW Plt Count Seg Neutrophils % Lymphocytes % Monocytes % Eosinophils % Basophils % Absolute Neutrophils Absolute Lymphocytes Absolute Monocytes Absolute Eosinophils Absolute Basophils Sodium 135.1 L Potassium 4.2 Chloride 95 L Carbon Dioxide 36 H Anion Gap 4 L BUN 30 H Creatinine 0.83 Est GFR ( Amer) > 60 Est GFR (Non-Af Amer) > 60 Glucose 141 H Calcium 8.2 L 07/17/17 22:00 Sputum Gram Stain - Final 07/17/17 22:00 Sputum Sputum Culture - Final Staphylococcus Aureus Normal Jess 07/15/17 11:23 Blood Blood Culture - Final Staphylococcus Aureus 07/05/17 07/05/17 07/05/17 02:51 07:26 15:55 Creatine Kinase CK-MB (CK-2) Troponin I 0.022 0.177 Cancelled NT-Pro-B Natriuret Pep 07/05/17 07/05/17 07/05/17 16:50 23:15 23:15 Creatine Kinase 86 CK-MB (CK-2) 4.62 H Troponin I 0.482 0.708 NT-Pro-B Natriuret Pep 07/06/17 07/06/17 07/06/17 05:30 05:30 12:08 Creatine Kinase 84 70 CK-MB (CK-2) 5.47 H Troponin I 0.642 NT-Pro-B Natriuret Pep 07/06/17 07/07/17 07/11/17 12:08 04:42 04:31 Creatine Kinase < 20 L CK-MB (CK-2) 4.98 H Troponin I 0.598 0.400 NT-Pro-B Natriuret Pep 07/12/17 07/12/17 07/13/17 20:55 20:55 03:30 Creatine Kinase 47 60 CK-MB (CK-2) 1.48 Troponin I 0.446 NT-Pro-B Natriuret Pep 2510 H 07/13/17 07/13/17 07/13/17 03:30 09:05 09:05 Creatine Kinase 79 CK-MB (CK-2) 1.81 1.79 Troponin I 0.793 0.647 NT-Pro-B Natriuret Pep Impressions: Head CT 07/04/17 20:09 IMPRESSION: No intracranial hemorrhage or mass effect. Few scattered Areas of low density in the white matter most likely due to chronic micro-vascular ischemic change. No evidence for large vessel acute infarction. EVIDENCE OF ACUTE STROKE: No Chest/Abdomen CTA 07/05/17 00:00 IMPRESSION: Positive for bilateral pulmonary emboli. Brain MRI with MRA 07/05/17 09:25 IMPRESSION: NORMAL MRA OF THE [place]. Venous Doppler Study 07/06/17 00:00 IMPRESSION: PARTIALLY OCCLUSIVE THROMBUS IN THE PROXIMAL RIGHT FEMORAL VEIN. NO EVIDENCE OF DEEP VENOUS THROMBOSIS IN THE LEFT LEG. Carotid Doppler Study 07/06/17 09:14 IMPRESSION: NO HEMODYNAMICALLY SIGNIFICANT STENOSIS. Head MRI 07/13/17 00:00 IMPRESSION: No abnormal contrast enhancement is identified on post gadolinium images Several tiny foci of ischemic change on the diffusion-weighted images as above. Report discussed with Dr. Coughlin, patient's attending physician at the time of dictation EVIDENCE OF ACUTE STROKE: NO. Knee X-Ray 07/16/17 00:00 IMPRESSION: No acute findings. Total knee arthroplasty. Chest X-Ray 07/18/17 00:00 IMPRESSION: Stable chest without developing failure or pneumonia suggested. Assessment & Plan - Time Time Spent with patient: 15-24 minutes Smoking Cessation Education: 3 to 10 minutes Medications reviewed and adjusted accordingly: Yes Anticipated discharge: [facility] Within: within 48 hours - Inpatient Certification Based on my medical assessment, after consideration of the patient's comorbidities, presenting symptoms, or acuity I expect that the services needed warrant INPATIENT care.: Yes Medical Necessity: Need for IV Antibiotics, Risk of Complication if Not Cared For in Hospital - Plan Summary Plan Summary: 1. MSSA bacteremia Last positive blood cultures was 07/15. continue with An[facility] pending transfer to [facility] She needs NADER and other speciality consults 2. Septic shock secondary to above - resolved 3. Bilateral pulmonary emboli while patient was on Eliquis. Cont low-dose heparin drip 4. 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 Patient is awaiting transfer 5. Seizure-like activity currently on [facility] EEG was nonspecific and no further activities noted 6. 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 Acute hypoxemic respiratory failure secondary to COPD 8. Metabolic encephalopathy apparently improved near baseline 9. Prediabetes AIC of 6.3 10. Hypertension controlled 11. Obesity with BMI of 37
[2017-07-20] MEDS: HEPARIN SODIUM,PORCINE/D5W 25,000 UNIT/250 ML RTUINJ IV PRN (13:29)
[2017-07-20] MEDS: INSULIN LISPRO 100 UNIT/ML 3 ML VIAL SUBCUT PRN ×2 (13:49→18:37)
[2017-07-20] MEDS: CITALOPRAM HYDROBROMIDE 20 MG TABLET PO SCH (22:13)
[2017-07-20] MEDS: ATORVASTATIN CALCIUM 20 MG TABLET PO SCH (22:13)
[2017-07-20] MEDS: ZINC OXIDE 20% OINTMENT 28.35 GM TP PRN (22:30)
[2017-07-21 04:52] LABS: HEMATOCRIT 35.7 % (36.0-47.0); HEMOGLOBIN 12.2 g/dL (12.0-15.5); MEAN CORPUSCULAR HEMOGLOBIN 32.2 pg (27.0-33.4); MEAN CORPUSCULAR HGB CONC 34.1 g/dL (32.0-36.0); MEAN CORPUSCULAR VOLUME 94 fl (80-97); PLATELET COUNT 192 10^3/uL (150-450); RED BLOOD COUNT 3.78 10^6/uL (3.72-5.28); RED CELL DISTRIBUTION WIDTH 13.7 % (11.5-14.0); WHITE BLOOD COUNT 10.9 10^3/uL (4.0-10.5)
[2017-07-21] MEDS: CEFAZOLIN SODIUM 2 GM in DEXTROSE 5%-WATER 100 ML IV SCH ×3 (05:29→21:23)
[2017-07-21] MEDS: GABAPENTIN 100 MG CAPSULE PO SCH ×3 (06:29→21:22)
[2017-07-21] MEDS: DILTIAZEM HCL 30 MG TABLET PO SCH ×3 (06:29→21:22)
[2017-07-21] MEDS: LANSOPRAZOLE 30 MG TAB.RAP.DR PO SCH (06:29)
[2017-07-21] MEDS: LACTOBACILLUS ACIDOPHILUS 250 MG TAB PO SCH ×2 (09:49→17:39)
[2017-07-21] MEDS: GUAIFENESIN 600 MG TABLET.SA PO SCH ×2 (09:49→17:39)
[2017-07-21] MEDS: POTASSIUM CHLORIDE 10 MEQ TABLET.SA PO SCH (09:49)
[2017-07-21] MEDS: FUROSEMIDE 40 MG TABLET PO SCH (09:50)
[2017-07-21] MEDS: NYSTATIN TOPICAL POWDER 15 GM TP SCH ×2 (09:50→17:40)
[2017-07-21] MEDS: LOSARTAN POTASSIUM 25 MG TABLET PO SCH ×2 (09:50→21:23)
[2017-07-21] MEDS: PREDNISOLONE ACETATE 1% OPH SUSP 5 ML OS SCH (09:51)
[2017-07-21] MEDS: HEPARIN SODIUM,PORCINE/D5W 25,000 UNIT/250 ML RTUINJ IV PRN (09:53)
[2017-07-21] MEDS: INSULIN LISPRO 100 UNIT/ML 3 ML VIAL SUBCUT PRN (12:25)
[2017-07-21] MEDS ORDERED: LEVETIRACETAM 500 MG TABLET PO SCH (18:00)
--- NOTE | 2017-07-21 18:16 | PDOC PROGRESS REPORT ---
Subjective Progress Note for:: 07/21/17 Subjective:: The patient is resting in her bed. I have spoken to her daughter who is agreeable to seeing if she could be transferred to [place]. Efforts are underway in both the patient and her daughter in agreement. Patient herself has no complaints today. She is sleeping and states she would like to go back to sleep. A good review of systems could not be obtained Reason For Visit: COPD EXACERBATION Physical Exam Vital Signs: Temp Pulse Resp BP Pulse Ox 97.8 F 72 20 109/83 97 07/21/17 16:15 07/21/17 16:15 07/21/17 16:15 07/21/17 16:15 07/21/17 16:15 Intake & Output 07/20/17 07/21/17 07/22/17 06:59 06:59 06:59 Intake Total 1292 1779 244 Balance 1292 1779 244 Weight 105.5 kg 107.3 kg General appearance: PRESENT: no acute distress, obese Head exam: PRESENT: atraumatic, normocephalic Eye exam: PRESENT: conjunctiva pink, EOMI, PERRLA. ABSENT: scleral icterus Ear exam: PRESENT: normal external ear exam Mouth exam: PRESENT: moist, tongue midline Neck exam: ABSENT: carotid bruit, JVD, lymphadenopathy, thyromegaly Respiratory exam: PRESENT: clear to auscultation claudia. ABSENT: rales, rhonchi, wheezes Cardiovascular exam: PRESENT: RRR. ABSENT: diastolic murmur, rubs, systolic murmur GI/Abdominal exam: PRESENT: normal bowel sounds, soft. ABSENT: distended, guarding, mass, organolmegaly, rebound, tenderness Rectal exam: PRESENT: deferred Extremities exam: PRESENT: full ROM. ABSENT: calf tenderness, clubbing, pedal edema Neurological exam: PRESENT: alert, awake, oriented to person, oriented to place , oriented to time, oriented to situation, CN II-XII grossly intact. ABSENT: motor sensory deficit Psychiatric exam: PRESENT: appropriate affect, normal mood. ABSENT: homicidal ideation, suicidal ideation Skin exam: PRESENT: dry, intact, warm. ABSENT: cyanosis, rash Results Laboratory Results: 07/21/17 04:18 07/20/17 06:20 07/21/17 07/21/17 04:18 04:18 WBC 10.9 H RBC 3.78 Hgb 12.2 Hct 35.7 L MCV 94 MCH 32.2 MCHC 34.1 RDW 13.7 Plt Count 192 Phosphorus 3.3 07/16/17 15:57 Blood Blood Culture - Final NO GROWTH IN 5 DAYS 07/16/17 15:45 Blood Blood Culture - Final NO GROWTH IN 5 DAYS 07/05/17 07/05/17 07/05/17 02:51 07:26 15:55 Creatine Kinase CK-MB (CK-2) Troponin I 0.022 0.177 Cancelled NT-Pro-B Natriuret Pep 07/05/17 07/05/17 07/05/17 16:50 23:15 23:15 Creatine Kinase 86 CK-MB (CK-2) 4.62 H Troponin I 0.482 0.708 NT-Pro-B Natriuret Pep 07/06/17 07/06/17 07/06/17 05:30 05:30 12:08 Creatine Kinase 84 70 CK-MB (CK-2) 5.47 H Troponin I 0.642 NT-Pro-B Natriuret Pep 07/06/17 07/07/17 07/11/17 12:08 04:42 04:31 Creatine Kinase < 20 L CK-MB (CK-2) 4.98 H Troponin I 0.598 0.400 NT-Pro-B Natriuret Pep 07/12/17 07/12/17 07/13/17 20:55 20:55 03:30 Creatine Kinase 47 60 CK-MB (CK-2) 1.48 Troponin I 0.446 NT-Pro-B Natriuret Pep 2510 H 07/13/17 07/13/17 07/13/17 03:30 09:05 09:05 Creatine Kinase 79 CK-MB (CK-2) 1.81 1.79 Troponin I 0.793 0.647 NT-Pro-B Natriuret Pep Impressions: Head CT 07/04/17 20:09 IMPRESSION: No intracranial hemorrhage or mass effect. Few scattered Areas of low density in the white matter most likely due to chronic micro-vascular ischemic change. No evidence for large vessel acute infarction. EVIDENCE OF ACUTE STROKE: No Chest/Abdomen CTA 07/05/17 00:00 IMPRESSION: Positive for bilateral pulmonary emboli. Brain MRI with MRA 07/05/17 09:25 IMPRESSION: NORMAL MRA OF THE [place]. Venous Doppler Study 07/06/17 00:00 IMPRESSION: PARTIALLY OCCLUSIVE THROMBUS IN THE PROXIMAL RIGHT FEMORAL VEIN. NO EVIDENCE OF DEEP VENOUS THROMBOSIS IN THE LEFT LEG. Carotid Doppler Study 07/06/17 09:14 IMPRESSION: NO HEMODYNAMICALLY SIGNIFICANT STENOSIS. Head MRI 07/13/17 00:00 IMPRESSION: No abnormal contrast enhancement is identified on post gadolinium images Several tiny foci of ischemic change on the diffusion-weighted images as above. Report discussed with Dr. Coughlin, patient's attending physician at the time of dictation EVIDENCE OF ACUTE STROKE: NO. Knee X-Ray 07/16/17 00:00 IMPRESSION: No acute findings. Total knee arthroplasty. Chest X-Ray 07/18/17 00:00 IMPRESSION: Stable chest without developing failure or pneumonia suggested. Assessment & Plan - Diagnosis (1) Septic shock Is this a current diagnosis for this admission?: Yes Plan: Present on admission. Resolved (2) MSSA bacteremia Is this a current diagnosis for this admission?: Yes Plan: Her last set of blood cultures third set of blood cultures are negative to date. I still believe the patient needs transfer to a tertiary center for infectious disease evaluation, NADER and evaluation by neurology. I will call [facility] today. (3) Bilateral pulmonary embolism Is this a current diagnosis for this admission?: Yes Plan: Continue low-dose heparin as recommended by neurology in [place]. (4) Seizure Is this a current diagnosis for this admission?: Yes Plan: Her Keppra had fallen off her MAR. I am going to restart her back on Keppra 500 mg twice daily (5) Acute and chronic respiratory failure Is this a current diagnosis for this admission?: Yes Plan: Secondary to pulmonary embolisms. Continue oxygen support as needed. (6) Acute metabolic encephalopathy Is this a current diagnosis for this admission?: Yes Plan: She likely has septic pulmonary emboli. Secondary to sepsis. Resolved (7) Cerebrovascular accident, embolic Is this a current diagnosis for this admission?: Yes Plan: Continue low-dose heparin. She is failed Eliquis. (8) Obesity (BMI 30-39.9) Is this a current diagnosis for this admission?: Yes Plan: Dietary discretion is advised (9) Prediabetes Is this a current diagnosis for this admission?: Yes Plan: Stable (10) Elevated liver function tests Is this a current diagnosis for this admission?: Yes Plan: Secondary to sepsis. Improving (11) Hyponatremia Is this a current diagnosis for this admission?: Yes Plan: Improving (12) Hypokalemia Is this a current diagnosis for this admission?: Yes Plan: Repleted and resolved (13) Hypophosphatemia Is this a current diagnosis for this admission?: Yes Plan: Repleted and resolved (14) Thrombocytopenia Is this a current diagnosis for this admission?: Yes (15) Full code status Is this a current diagnosis for this admission?: Yes - Time Time Spent with patient: 35 or more minutes - Inpatient Certification Medical Necessity: Need for IV Antibiotics - Inpatient hospitalization remains necessary. I am going to try to contact [facility] today for consideration of transfer. I do believe she still needs NADER as well as neurology and infectious disease input. She [facility] the [facility]. In the meantime she will continue her IV cefazolin here in the hospital., Other
--- NOTE | 2017-07-21 18:30 | PDOC TRANSFER SUMMARY ---
General Admission Date/PCP: 07/05/17 01:52 Admission Date: 07/05/17 Transfer Date: 07/21/17 Accepting Facility: [facility] Accepting Physician: Dr Garcia Resuscitation Status: Full Code - Transfer Diagnosis (1) Septic shock Is this a current diagnosis for this admission?: Yes Diagnosis Summary: Present on admission. Manifested by severe hypotension, high fever, tachycardia , tachypnea, thrombocytopenia and evidence of infection. Resolved (2) MSSA bacteremia Is this a current diagnosis for this admission?: Yes Diagnosis Summary: At this point her blood cultures do seem to be clearing. She had 2 sets of blood cultures positive for MSSA. She is on appropriate IV antibiotic therapy. She does need a NADER. We suspect she has septic pulmonary emboli and had she has had an embolic CVA. She needs neurology and infectious disease follow-up as well as cardiology for consideration of the NADER. We will transfer her to a tertiary center for further evaluation. (3) Bilateral pulmonary embolism Is this a current diagnosis for this admission?: Yes Diagnosis Summary: Currently on a low-dose heparin drip which is not ideal but it is the recommendation from [facility]. (4) Seizure Is this a current diagnosis for this admission?: Yes Diagnosis Summary: She is stable on Keppra 500 mg twice daily.. (5) Acute and chronic respiratory failure Is this a current diagnosis for this admission?: Yes Diagnosis Summary: Continue oxygen as needing. Her acute respiratory failure is due to her pulmonary emboli (6) Acute metabolic encephalopathy Is this a current diagnosis for this admission?: Yes (7) Cerebrovascular accident, embolic Is this a current diagnosis for this admission?: Yes Diagnosis Summary: Continue heparin (8) Obesity (BMI 30-39.9) Is this a current diagnosis for this admission?: Yes (9) Prediabetes Is this a current diagnosis for this admission?: Yes (10) Elevated liver function tests Is this a current diagnosis for this admission?: Yes Diagnosis Summary: Secondary to sepsis. Improving (11) Hyponatremia Is this a current diagnosis for this admission?: Yes Diagnosis Summary: Improved (12) Hypokalemia Is this a current diagnosis for this admission?: Yes Diagnosis Summary: Repleted and resolved (13) Hypophosphatemia Is this a current diagnosis for this admission?: Yes Diagnosis Summary: Repleted and resolved (14) Thrombocytopenia Is this a current diagnosis for this admission?: Yes Diagnosis Summary: Secondary to sepsis. Resolved (15) Full code status Is this a current diagnosis for this admission?: Yes - Transfer Medications Home Medications: Citalopram Hydrobromide [Citalopram HBr] 20 mg PO DAILY 07/05/17 Prednisolone Acetate [Pred Forte] 1 drop OS DAILY MDD STARTING 07/09 ENDING 07/1507/05/17 Transfer Medications: Current Medications Acetaminophen (Tylenol 325 Mg Tablet) 650 mg PO Q4HP PRN PRN Reason: fever, headache and/or pain Stop: 08/04/17 02:06 Last Admin: 07/20/17 09:30 Dose: 650 mg Atorvastatin Calcium (Lipitor 20 Mg Tablet) 40 mg PO QHS [facility] Stop: 08/15/17 15:50 Last Admin: 07/20/17 22:13 Dose: 40 mg Citalopram Hydrobromide (Celexa 20 Mg Tablet) 20 mg PO QHS [facility] Stop: 08/10/17 21:59 Last Admin: 07/20/17 22:13 Dose: 20 mg Dextrose (Dextrose Inj 50% Syringe (25 Gm/50 Ml)) 12.5 gm IV PRN PRN; Protocol PRN Reason: FOR BG 50-69 IN ALERT PATIENT Stop: 08/14/17 07:06 Dextrose (Dextrose Inj 50% Syringe (25 Gm/50 Ml)) 25 gm IV PRN PRN; Protocol PRN Reason: PER PROTOCOL Stop: 08/14/17 07:06 Diltiazem HCl (Cardizem 30 Mg Tablet) 30 mg PO Q8 DEEPAK Stop: 08/14/17 13:59 Last Admin: 07/21/17 13:53 Dose: 30 mg Furosemide (Lasix 40 Mg Tablet) 40 mg PO DAILY DEEPAK Stop: 08/19/17 09:59 Last Admin: 07/21/17 09:50 Dose: 40 mg Gabapentin (Neurontin 100 Mg Capsule) 100 mg PO Q8 DEEPAK Stop: 08/12/17 13:59 Last Admin: 07/21/17 13:53 Dose: 100 mg Glucagon (Glucagen Inj 1 Mg Vial) 1 mg IM PRN PRN; Protocol PRN Reason: Evaluate for BG < 70 Stop: 08/14/17 07:06 Glucose (Glutose 40% Gel 15 Gm Tube) 15 gm PO PRN PRN; Protocol PRN Reason: FOR BG 50-69 IN ALERT PATIENT Stop: 08/14/17 07:06 Glucose (Glutose 40% Gel 15 Gm Tube) 30 gm PO PRN PRN; Protocol PRN Reason: FOR BG < 50 IN ALERT PATIENT Stop: 08/14/17 07:06 Guaifenesin (Mucinex Sr 600 Mg Tablet.Sa) 600 mg PO BID [facility] Stop: 08/18/17 09:59 Last Admin: 07/21/17 17:39 Dose: 600 mg Heparin Sodium (Porcine) (Heparin Inj 1,000 Unit/Ml 10 Ml Vial) 0 - 12,000 unit IV .BOLUS PER PROTOCOL PRN; Protocol PRN Reason: RESPOND TO aPTT VALUE Stop: 08/15/17 19:31 Last Admin: 07/19/17 04:58 Dose: 3,000 unit Cefazolin Sodium 2 gm/ (Dextrose) 100 mls @ 200 mls/hr IV Q8 [facility] Stop: 07/23/17 13:59 Last Admin: 07/21/17 13:54 Dose: 2 gm Heparin Sodium/Dextrose (Heparin Rtu 25,000 Unit/250 Ml D5w Premix) 25,000 unit in 250 mls @ 0 mls/hr IV CONTINUOUS PRN; Protocol; Titrate PRN Reason: THIS MED IS NOT "PRN" Stop: 08/15/17 16:30 Last Admin: 07/21/17 09:53 Dose: 250 ml Insulin Human Lispro (Humalog Insulin 100 Unit/1 Ml 3 Ml Vial) 0 - 12 unit SUBCUT ACHSP PRN; Protocol PRN Reason: PER PROTOCOL Stop: 08/14/17 07:06 Last Admin: 07/21/17 12:25 Dose: 8 unit Lactobacillus Acidophilus (Bacid 250 Mg Tablet) 500 mg PO BID [facility] Stop: 08/16/17 09:59 Last Admin: 07/21/17 17:39 Dose: 500 mg Lansoprazole (Prevacid 30 Mg Odt Tablet) 30 mg PO Q6AM [facility] Stop: 08/05/17 05:59 Last Admin: 07/21/17 06:29 Dose: 30 mg Losartan Potassium (Cozaar 25 Mg Tablet) 25 mg PO Q12 [facility] Stop: 08/17/17 21:59 Last Admin: 07/21/17 09:50 Dose: 25 mg Multi-Ingredient Ointment (Zinc Oxide 20% Ointment 28.35 Gm) 1 applic TP DAILYP PRN PRN Reason: SKIN IRRITATION Stop: 08/04/17 21:59 Last Admin: 07/20/17 22:30 Dose: 1 applic Nystatin (Mycostatin Topical Powder 15 Gm) 1 applic TP BID DEEPAK Stop: 18 17:59 Last Admin: 07/21/17 17:40 Dose: 1 applic Oxycodone HCl (Oxy-Ir 5 Mg Tablet) 5 mg PO Q4HP PRN PRN Reason: FOR PAIN Stop: 07/23/17 18:08 Last Admin: 07/18/17 02:10 Dose: 5 mg Potassium Chloride (Klor-Con 10 Meq Tablet.Sa) 20 meq PO DAILY DEEPAK Stop: 08/11/17 09:59 Last Admin: 07/21/17 09:49 Dose: 20 meq Prednisolone Acetate (Inflamase 1% Oph Susp 5 Ml) 1 drop OS DAILY DEEPAK Stop: 08/09/17 09:59 Last Admin: 07/21/17 09:51 Dose: 1 drop Promethazine HCl (Phenergan Inj 25 Mg/1 Ml Vial) 12.5 mg IV Q4HP PRN PRN Reason: FOR NAUSEA/VOMITING Stop: 08/04/17 02:06 - Allergies Allergies/Adverse Reactions: Beta-Blockers (Beta-Adrenergic Bloc Allergy (Verified 07/05/17 08:51) Syncope - Diet/Activity Discharge Diet: Cardiac Hospital Course Hospital Course: The patient is an unfortunate 82-year-old female with a past medical history significant for previous CVA as well as hypertension. The patient presented to the emergency room with a chief complaint of a syncopal episode which was witnessed over 2 minutes. She was hypoxic and oxygen saturations were found to be 88% at the time she arrived at the emergency room. The patient had recently relocated to this area to live with her daughter. The patient's daughter at the time of admission stated that she was at her baseline. She helped her mother to the bathroom and as she was helping the patient sit down she noticed her mother became stiff with her white eyes wide open, staring into space. She was not incontinent. She did not bite the tongue. There was no frothing of the mouth. The patient's son-in-law noticed that the patient's right arm was shaking. The episode lasted about 10 minutes and the patient became quite diaphoretic and then came to and stated she was nauseated as well. The patient also was quite confused afterwards and she was brought to the emergency room via EMS. She was evaluated by the emergency room physicians and referred for admission to the hospital. The patient was initially admitted to an intermediate level of care. She underwent a workup for a CVA which would include an MRI/MRA of the brain. This showed old changes. She had carotid Dopplers performed which were unremarkable and a suboptimal echocardiogram. The patient's initial set of blood cultures and urine cultures were unremarkable and the patient was treated symptomatically for a COPD exacerbation. She did have a CTA of the chest which revealed bilateral pulmonary emboli. She was started on Eliquis. She had complete symptom improvement and was actually going to be discharged on 2017. However the patient became profoundly hypotensive, tachycardiac with evidence of septic shock and she was transferred to the intensive care unit. The patient did require 24 hours vasopressors and did receive an additional sepsis bolus. The patient's white count was found to be 28.4. She was started on broad-spectrum antibiotic coverage. Blood cultures were positive for MSSA and outside consultation with infectious disease recommended that the patient be transitioned to cefazolin which was done on 07/16/2017. However the patient's follow-up cultures obtained on 07/15/2017 once again were positive for MRSA. NADER is not available at this facility. While the patient was in the intensive care unit the patient had significant changes in her mental status on 07/13/2017. She had a repeat MRI at this time which was consistent with possible embolic etiology as there were tiny areas involved. Given the patient's persistent bacteremia there was suspicion for septic emboli in addition to her pulmonary emboli. The case was discussed with neurology at [facility] and the recommendation was to start the patient on a low-dose heparin drip and stop oral anticoagulation. Given that the patient would benefit from neurological evaluation as well as cardiac input for a NADER to evaluate for possible endocarditis the patient would benefit from tertiary transfer. Initially efforts were underway to transfer her to [facility] and the patient was accepted. However she has been on the list for a bed for about a week and still is waiting. In the meantime she has had repeat blood cultures which have finally cleared. She remains on IV cefazolin. I did discuss at length with the patient and her daughter. I still believe that the patient needs a NADER to help document possible endocarditis as we do not have a good source for her infection. Also I do believe she would benefit from neurology as well as infectious disease input to determine how long the patient needs IV antibiotics. I have spoken to hospitalist at [facility] and they have agreed to take the patient in transfer. She will remain on the waiting list in [place] as well. She will be transferred to a tertiary center as soon as a bed becomes available Physical Exam Vital Signs: Temp Pulse Resp BP Pulse Ox 97.8 F 72 20 109/83 97 07/21/17 16:15 07/21/17 16:15 07/21/17 16:15 07/21/17 16:15 07/21/17 16:15 Intake & Output 07/20/17 07/21/17 07/22/17 06:59 06:59 06:59 Intake Total 1292 1779 Balance 1292 1779 Weight 105.5 kg 107.3 kg General appearance: PRESENT: no acute distress, obese, well-developed, well- nourished Head exam: PRESENT: atraumatic, normocephalic Mouth exam: PRESENT: moist, tongue midline Neck exam: ABSENT: carotid bruit, JVD, lymphadenopathy, thyromegaly Respiratory exam: PRESENT: clear to auscultation claudia. ABSENT: rales, rhonchi, wheezes Cardiovascular exam: PRESENT: RRR. ABSENT: diastolic murmur, rubs, systolic murmur Vascular exam: PRESENT: normal capillary refill GI/Abdominal exam: PRESENT: normal bowel sounds, soft. ABSENT: distended, guarding, mass, organolmegaly, rebound, tenderness Rectal exam: PRESENT: deferred Extremities exam: PRESENT: full ROM. ABSENT: calf tenderness, clubbing, pedal edema Neurological exam: PRESENT: alert, awake, oriented to person, oriented to place , oriented to time, oriented to situation, CN II-XII grossly intact. ABSENT: motor sensory deficit Psychiatric exam: PRESENT: appropriate affect, normal mood. ABSENT: homicidal ideation, suicidal ideation Skin exam: PRESENT: dry, intact, warm. ABSENT: cyanosis, rash Results Laboratory Results: 07/21/17 04:18 07/20/17 06:20 07/21/17 07/21/17 04:18 04:18 WBC 10.9 H RBC 3.78 Hgb 12.2 Hct 35.7 L MCV 94 MCH 32.2 MCHC 34.1 RDW 13.7 Plt Count 192 Phosphorus 3.3 07/16/17 15:57 Blood Blood Culture - Final NO GROWTH IN 5 DAYS 07/16/17 15:45 Blood Blood Culture - Final NO GROWTH IN 5 DAYS 07/05/17 07/05/17 07/05/17 02:51 07:26 15:55 Creatine Kinase CK-MB (CK-2) Troponin I 0.022 0.177 Cancelled NT-Pro-B Natriuret Pep 07/05/17 07/05/17 07/05/17 16:50 23:15 23:15 Creatine Kinase 86 CK-MB (CK-2) 4.62 H Troponin I 0.482 0.708 NT-Pro-B Natriuret Pep 07/06/17 07/06/17 07/06/17 05:30 05:30 12:08 Creatine Kinase 84 70 CK-MB (CK-2) 5.47 H Troponin I 0.642 NT-Pro-B Natriuret Pep 07/06/17 07/07/17 07/11/17 12:08 04:42 04:31 Creatine Kinase < 20 L CK-MB (CK-2) 4.98 H Troponin I 0.598 0.400 NT-Pro-B Natriuret Pep 07/12/17 07/12/17 07/13/17 20:55 20:55 03:30 Creatine Kinase 47 60 CK-MB (CK-2) 1.48 Troponin I 0.446 NT-Pro-B Natriuret Pep 2510 H 07/13/17 07/13/17 07/13/17 03:30 09:05 09:05 Creatine Kinase 79 CK-MB (CK-2) 1.81 1.79 Troponin I 0.793 0.647 NT-Pro-B Natriuret Pep Impressions: Head CT 07/04/17 20:09 IMPRESSION: No intracranial hemorrhage or mass effect. Few scattered Areas of low density in the white matter most likely due to chronic micro-vascular ischemic change. No evidence for large vessel acute infarction. EVIDENCE OF ACUTE STROKE: No Chest/Abdomen CTA 07/05/17 00:00 IMPRESSION: Positive for bilateral pulmonary emboli. Brain MRI with MRA 07/05/17 09:25 IMPRESSION: NORMAL MRA OF THE [place]. Venous Doppler Study 07/06/17 00:00 IMPRESSION: PARTIALLY OCCLUSIVE THROMBUS IN THE PROXIMAL RIGHT FEMORAL VEIN. NO EVIDENCE OF DEEP VENOUS THROMBOSIS IN THE LEFT LEG. Carotid Doppler Study 07/06/17 09:14 IMPRESSION: NO HEMODYNAMICALLY SIGNIFICANT STENOSIS. Head MRI 07/13/17 00:00 IMPRESSION: No abnormal contrast enhancement is identified on post gadolinium images Several tiny foci of ischemic change on the diffusion-weighted images as above. Report discussed with Dr. Coughlin, patient's attending physician at the time of dictation EVIDENCE OF ACUTE STROKE: NO. Knee X-Ray 07/16/17 00:00 IMPRESSION: No acute findings. Total knee arthroplasty. Chest X-Ray 07/18/17 00:00 IMPRESSION: Stable chest without developing failure or pneumonia suggested. Plan Time Spent: Greater than 30 Minutes
[2017-07-21 20:37] VITALS: BP 133/66
[2017-07-21] MEDS: ATORVASTATIN CALCIUM 20 MG TABLET PO SCH (21:22)
[2017-07-21] MEDS: CITALOPRAM HYDROBROMIDE 20 MG TABLET PO SCH (21:23)
== END 2017-07-21 21:50 | disposition short-term general hospital (02) | DRG 871 ==
LOC: ER 19:57 → EH 07-05 01:52 → 3W 07-05 11:23 → ICU 07-12 21:15 → 3N 07-15 15:35
PROVIDERS: ADMIT Internal Medicine Geriatric Medicine; ATTEND Internal Medicine Geriatric Medicine
PROC: 3E0F73Z Introduction of Anti-inflammatory into Respiratory Tract, Via Natural or Artificial Opening (ICD-10-PCS; principal; 2017-07-05)
DX: A41.01 Sepsis due to Methicillin susceptible Staphylococcus aureus (principal); I26.01 Septic pulmonary embolism with acute cor pulmonale; G93.41 Metabolic encephalopathy; J96.21 Acute and chronic respiratory failure with hypoxia; R65.21 Severe sepsis with septic shock; I63.40 Cerebral infarction due to embolism of unspecified cerebral artery; I69.354 Hemiplegia and hemiparesis following cerebral infarction affecting left non-dominant side; I82.411 Acute embolism and thrombosis of right femoral vein; E87.1 Hypo-osmolality and hyponatremia; B95.61 Methicillin susceptible Staphylococcus aureus infection as the cause of diseases classified elsewhere; I10 Essential (primary) hypertension; M19.90 Unspecified osteoarthritis, unspecified site; F41.9 Anxiety disorder, unspecified; F32.9 Major depressive disorder, single episode, unspecified; R56.9 Unspecified convulsions; J44.9 Chronic obstructive pulmonary disease, unspecified; R35.0 Frequency of micturition; E11.65 Type 2 diabetes mellitus with hyperglycemia; E66.01 Morbid (severe) obesity due to excess calories; E87.6 Hypokalemia; E83.39 Other disorders of phosphorus metabolism; D69.6 Thrombocytopenia, unspecified; Z88.8 Allergy status to other drugs, medicaments and biological substances; I49.3 Ventricular premature depolarization; R74.8 Abnormal levels of other serum enzymes; R55 Syncope and collapse; R05 Cough; Z98.41 Cataract extraction status, right eye; Z79.899 Other long term (current) drug therapy; Z68.39 Body mass index [BMI] 39.0-39.9, adult; Z75.1 Person awaiting admission to adequate facility elsewhere; Z98.42 Cataract extraction status, left eye; Z87.891 Personal history of nicotine dependence; Z90.49 Acquired absence of other specified parts of digestive tract
CPT/HCPCS: 36415; 70450; 70544; 70551; 70553; 71045; 71275; 80048; 80053; 80069; 80202; 81001; 82272; 82550; 82553; 82565; 82803; 82962; 83036; 83735; 83880; 84100; 84443; 84484; 85025; 85027; 85379; 85610; 85730; 87040; 87070; 87077; 87086; 87186; 87205; 93005; 93010; 93306; 93880; 93970; 95819; 96361; 96374; 99285; A9577; G8978-GP; G8979-GP; G8987-GO; G8988-GO; J0133; J0690; J0696; J1644; J1815; J1940; J2248; J2920; J2930; J3370; J3480; J3490; J7030; J7050; J7060; J7620

== ENCOUNTER 2018-04-30 19:34 | Inpatient (IN) | payer MEDICARE ==
[2018-04-30] MEDS ORDERED: RINGERS SOLUTION,LACTATED 1,000 ML IV ONE (19:59)
[2018-04-30] MEDS ORDERED: CEFTRIAXONE INJ 1000 MG VIAL IV ONE (19:59)
--- NOTE | 2018-04-30 20:02 | ER Document Report ---
ED General - General Stated Complaint: ALTERED MENTAL STATUS Time Seen by Provider: 04/30/18 19:51 TRAVEL OUTSIDE OF THE [place] IN LAST 30 DAYS: No - HPI Notes: Patient is a 83-year-old female that presents to the emergency department for chief complaint of altered mental status. Patient lives at home and family found her confused and somnolent and called EMS. EMS reported when they arrived patient had a pulse ox of 63% on room air and was hypotensive. She does have a history of urinary tract infection causing sepsis in the past. Patient had been complaining of foul-smelling urine and diarrhea for the past 1-2 days. She denied having any fevers at home. She states she has had a mild cough but denies any shortness of breath and chest pain. Patient currently has no complaints. She received 1 L LR by EMS prior to arrival. She denies using breathing treatments at home or ever requiring oxygen at home. HPI is limited because of patient's current mentation. Past Medical History: PE, COPD, seizures Past Surgical History: Cholecystectomy, hysterectomy Social History: Former smoker Family History: Reviewed and noncontributory for presenting illness Allergies: Reviewed, see documented allergy list. REVIEW OF SYSTEMS: CONSTITUTIONAL : No fever No chills No diaphoresis No recent illness EENT: No vision changes No congestion No sore throat CARDIOVASCULAR: No chest pain No palpitations RESPIRATORY: No shortness of breath cough No difficulty breathing GASTROINTESTINAL: No abdominal pain No nausea No vomiting diarrhea GENITOURINARY: dysuria Foul-smelling urine No hematuria No difficulty urinating MUSCULOSKELETAL: No back pain No leg pain No arm pain SKIN: No rashes No lesions LYMPHATIC: No swollen, enlarged glands. NEUROLOGICAL: No lightheadedness No headache No weakness No paresthesias PSYCHIATRIC: No anxiety No depression PHYSICAL EXAMINATION: Vital signs reviewed, nursing noted reviewed. GENERAL: Ill-appearing, obese HEAD: Atraumatic, normocephalic. EYES: Eyes appear normal, extraocular movements intact, sclera anicteric, conjunctiva are normal. ENT: nares patent, oropharynx clear without exudates. Dry mucous membranes. NECK: Normal range of motion, supple without lymphadenopathy LUNGS: Shallow respirations, diminished lung sounds bilaterally, no accessory muscle use or tachypnea. No wheezing or rhonchi HEART: Tachycardic rate and regular rhythm without murmurs ABDOMEN: Small nontender ventral hernia that is easily reduced, soft, nontender. No rebound, guarding, or rigidity. No masses appreciated. EXTREMITIES: Nontender, good range of motion, +2 pitting edema bilateral lower extremities. NEUROLOGICAL: Disoriented to time and situation. Oriented to person and place. moves all extremities spontaneously Motor and sensory grossly intact on exam. PSYCH: Normal mood, normal affect. SKIN: Warm, Dry, no rashes or lesions noted on exposed skin - Related Data Allergies/Adverse Reactions: Beta-Blockers (Beta-Adrenergic Bloc Allergy (Verified 07/05/17 08:51) Syncope Past Medical History - Social History Smoking Status: Former Smoker Family History: Reviewed & Not Pertinent - Past Medical History Cardiac Medical History: Reports: Hx Hypertension Renal/ Medical History: Denies: Hx Peritoneal Dialysis Musculoskeletal Medical History: Reports Hx Arthritis Psychiatric Medical History: Reports: Hx Depression - anxiety Past Surgical History: Reports: Hx Cholecystectomy, Hx Hysterectomy, Hx Orthopedic Surgery - R knee replacement; Lower back surgery L5., Other - right hemicolectomy for diverticulitis per daughter. B/L cataract sx. Physical Exam - Vital signs Vitals: Resp Pulse Ox 17 89 L 04/30/18 19:41 04/30/18 19:41 Course - Re-evaluation Re-evalutation: 04/30/18 21:45 Vitals reviewed. Nursing notes reviewed. Patient presented hypoxic and was oxygenating at 90% on 5 L nasal cannula. She was placed on BiPAP for her hypercapnic respiratory failure. Patient does not have increased work of breathing and actually has very slow shallow respirations. She is mentating and oriented to person and place. Patient is currently protecting her airway and not requiring intubation. She was given Solu-Medrol and aerosols for COPD exacerbation as a cause of her respiratory failure. She has no focal neurologic deficits to suggest acute stroke as a cause of her mental status change. Patient has continued to be hypotensive despite receiving 1 L LR by EMS and 1 L of LR in the emergency room. Right femoral central line was placed and levophed was started for her persistent hypotension. Patient was given Rocephin for her urinary tract infection which is the cause of her acute septic shock. Patient also has elevated troponin at 0.199 which is likely demand ischemia secondary to her shock state. Her comparison troponins were higher in the past. Patient was given aspirin for her elevated troponin however the cause is likely hypotension from septic shock and not related to coronary syndrome. Patients EKG shows no acute ischemia. She is anticoagulated on Eliquis at home for history of PEs and CTA will be obtained to evaluate for recurrence of PEs when patient is more hemodynamically stable however I do not have high clinical suspicion currently for large PE therefore prophylactic anticoagulation with Lovenox not currently indicated. I did have a lengthy discussion with patient's daughter regarding goals of care and CODE STATUS. She currently wishes for her to be a full code. But states she will talk to her family about changing patient to a DNR since this is her third serious infection this year per family. I did discuss patient's care with Dr. Garcia who accepts patient for admission to the ICU. Patient has improved since arrival in the emergency room but is still in critical condition at time of admission. Laboratory 04/30/18 04/30/18 04/30/18 20:00 20:00 20:00 WBC 9.1 RBC 4.49 Hgb 15.0 Hct 45.2 MCV 101 H MCH 33.3 MCHC 33.1 RDW 13.4 Plt Count 198 Seg Neutrophils % 83.2 H Lymphocytes % 7.3 L Monocytes % 8.9 Eosinophils % 0.2 Basophils % 0.4 Absolute Neutrophils 7.6 Absolute Lymphocytes 0.7 Absolute Monocytes 0.8 Absolute Eosinophils 0.0 Absolute Basophils 0.0 PT INR Carbonic Acid HCO3/H2CO3 Ratio ABG pH ABG pCO2 ABG pO2 ABG HCO3 ABG Total CO2 ABG O2 Saturation ABG Base Excess FiO2 Sodium 140.9 Potassium 4.9 Chloride 100 Carbon Dioxide 31 H Anion Gap 10 BUN 33 H Creatinine 1.29 H Est GFR ( Amer) 48 L Est GFR (Non-Af Amer) 39 L Glucose 134 H Lactic Acid Calcium 8.8 Total Bilirubin 0.7 Direct Bilirubin 0.3 Neonat Total Bilirubin Not Reportable Neonat Direct Bilirubin Not Reportable Neonat Indirect Bili Not Reportable AST 46 H ALT 46 Alkaline Phosphatase 61 Troponin I 0.199 Total Protein 6.0 L Albumin 3.5 Urine Color Urine Appearance Urine pH Ur Specific [place] Urine Protein Urine Glucose (UA) Urine Ketones Urine Blood Urine Nitrite Urine Bilirubin Urine Urobilinogen Ur Leukocyte Esterase Urine WBC (Auto) Urine RBC (Auto) U Hyaline Cast (Auto) Urine Bacteria (Auto) Urine WBC Clumps U Non-Squamous Epis Auto Urine Mucus (Auto) Urine Ascorbic Acid 04/30/18 04/30/18 04/30/18 20:00 20:00 20:19 WBC RBC Hgb Hct MCV MCH MCHC RDW Plt Count Seg Neutrophils % Lymphocytes % Monocytes % Eosinophils % Basophils % Absolute Neutrophils Absolute Lymphocytes Absolute Monocytes Absolute Eosinophils Absolute Basophils PT 17.0 H INR 1.32 Carbonic Acid HCO3/H2CO3 Ratio ABG pH ABG pCO2 ABG pO2 ABG HCO3 ABG Total CO2 ABG O2 Saturation ABG Base Excess FiO2 Sodium Potassium Chloride Carbon Dioxide Anion Gap BUN Creatinine Est GFR ( Amer) Est GFR (Non-Af Amer) Glucose Lactic Acid 1.4 Calcium Total Bilirubin Direct Bilirubin Neonat Total Bilirubin Neonat Direct Bilirubin Neonat Indirect Bili AST ALT Alkaline Phosphatase Troponin I Total Protein Albumin Urine Color GORAN Urine Appearance TURBID Urine pH 8.0 Ur Specific [place] 1.020 Urine Protein 100 H Urine Glucose (UA) NEGATIVE Urine Ketones NEGATIVE Urine Blood NEGATIVE Urine Nitrite POSITIVE H Urine Bilirubin MODERATE H Urine Urobilinogen NEGATIVE Ur Leukocyte Esterase LARGE H Urine WBC (Auto) >182 Urine RBC (Auto) 13 U Hyaline Cast (Auto) 21 Urine Bacteria (Auto) 1+ Urine WBC Clumps MANY U Non-Squamous Epis Auto 3 Urine Mucus (Auto) RARE Urine Ascorbic Acid NEGATIVE 04/30/18 20:36 WBC RBC Hgb Hct MCV MCH MCHC RDW Plt Count Seg Neutrophils % Lymphocytes % Monocytes % Eosinophils % Basophils % Absolute Neutrophils Absolute Lymphocytes Absolute Monocytes Absolute Eosinophils Absolute Basophils PT INR Carbonic Acid 2.00 H HCO3/H2CO3 Ratio 14:1 ABG pH 7.27 L ABG pCO2 66.3 H ABG pO2 61.9 L ABG HCO3 29.7 H ABG Total CO2 31.7 H ABG O2 Saturation 87.8 L ABG Base Excess 0.8 FiO2 5L Sodium Potassium Chloride Carbon Dioxide Anion Gap BUN Creatinine Est GFR ( Amer) Est GFR (Non-Af Amer) Glucose Lactic Acid Calcium Total Bilirubin Direct Bilirubin Neonat Total Bilirubin Neonat Direct Bilirubin Neonat Indirect Bili AST ALT Alkaline Phosphatase Troponin I Total Protein Albumin Urine Color Urine Appearance Urine pH Ur Specific [place] Urine Protein Urine Glucose (UA) Urine Ketones Urine Blood Urine Nitrite Urine Bilirubin Urine Urobilinogen Ur Leukocyte Esterase Urine WBC (Auto) Urine RBC (Auto) U Hyaline Cast (Auto) Urine Bacteria (Auto) Urine WBC Clumps U Non-Squamous Epis Auto Urine Mucus (Auto) Urine Ascorbic Acid Chest X-Ray 04/30/18 19:51 IMPRESSION: Elevated right hemidiaphragm. No acute infiltrate. copyright 2010 [employer]- All Rights Reserved 04/30/18 22:34 Patient has continued to improve. Her Levophed drip is on at 3 mics per hour and her current blood pressure is 112/93. Goal map greater than 65. Patient is still awake and protecting her airway. - Vital Signs Vital signs: Temp Pulse Resp BP Pulse Ox 97.7 F 22 H 101/53 L 97 04/30/18 20:04 04/30/18 22:02 04/30/18 22:02 04/30/18 22:02 - Laboratory Result Diagrams: 04/30/18 20:00 04/30/18 20:00 Laboratory results interpreted by me: 04/30/18 04/30/18 04/30/18 20:00 20:00 20:00 MCV 101 H Seg Neutrophils % 83.2 H Lymphocytes % 7.3 L PT 17.0 H Carbonic Acid ABG pH ABG pCO2 ABG pO2 ABG HCO3 ABG Total CO2 ABG O2 Saturation Carbon Dioxide 31 H BUN 33 H Creatinine 1.29 H Est GFR ( Amer) 48 L Est GFR (Non-Af Amer) 39 L Glucose 134 H AST 46 H Total Protein 6.0 L Urine Protein Urine Nitrite Urine Bilirubin Ur Leukocyte Esterase 04/30/18 04/30/18 20:19 20:36 MCV Seg Neutrophils % Lymphocytes % PT Carbonic Acid 2.00 H ABG pH 7.27 L ABG pCO2 66.3 H ABG pO2 61.9 L ABG HCO3 29.7 H ABG Total CO2 31.7 H ABG O2 Saturation 87.8 L Carbon Dioxide BUN Creatinine Est GFR ( Amer) Est GFR (Non-Af Amer) Glucose AST Total Protein Urine Protein 100 H Urine Nitrite POSITIVE H Urine Bilirubin MODERATE H Ur Leukocyte Esterase LARGE H - EKG Interpretation by Me Additional EKG results interpreted by me: 04/30/18 20:08 Interpreted by myself 1945: Normal sinus rhythm, rate 89, normal axis, LVH, poor R wave progression, no ectopy, no STEMI Procedures - Central Line Right Femoral Time completed: 21:42 Consent obtained: Yes - Verbal by patient and written by daughter Central line pre-insertion: Sterile PPE donned, Chloraprep applied, Sterile drapes applied Central line lumen type: Triple Anesthetic type: 1% Lidocaine w/epi mL's of anesthesia: 4 Ultrasound guided: Yes Line secured with sutures: Yes Central line post-insertion: Blood return from lumens, Biopatch applied, Sutured, Sterile dressing applied, Position confirmed w/ CXR Number of attempts: 1 Complications: No Critical Care Note - Critical Care Note Total time excluding time spent on procedures (mins): 50 Comments: 50 Minutes of critical care time spent in direct contact evaluating and ree valuating the patient, treating symptoms, reviewing labs and studies and speaking with family and consultants excluding any procedures. Patient in multisystem organ failure and shock requiring aggressive resuscitation. High potential for cardiovascular and respiratory decompensation Discharge - Discharge Clinical Impression: Septic shock, NSTEMI (non-ST elevated myocardial infarction), Hypoxia Renal failure Qualifiers: Renal failure chronicity: acute Acute renal failure type: unspecified Qualified Code(s): N17.9 - Acute kidney failure, unspecified Hypercapnic respiratory failure Qualifiers: Chronicity: acute Qualified Code(s): J96.02 - Acute respiratory failure with hypercapnia UTI (urinary tract infection) Qualifiers: Urinary tract infection type: acute cystitis Hematuria presence: without hematuria Qualified Code(s): N30.00 - Acute cystitis without hematuria Condition: Critical Disposition: ADMITTED INPATIENT Admitting Provider: Hospitalist Unit Admitted: ICU
[2018-04-30] MEDS ORDERED: IPRATROPIUM/ALBUTEROL 0.5-2.5 MG/3 ML AMPUL NEB ONE (20:04)
[2018-04-30] MEDS ORDERED: ALBUTEROL SULFATE 0.083% NEB 2.5 MG/3 ML AMPUL NEB ONE (20:04)
[2018-04-30 20:15] LABS: ABSOLUTE LYMPHOCYTES (AUTO) 0.7 10^3/uL (0.5-4.7); ABSOLUTE MONOCYTES (AUTO) 0.8 10^3/uL (0.1-1.4); ABSOLUTE NEUT (AUTO) 7.6 10^3/uL (1.7-8.2); BASOPHILS % (AUTO) 0.4 % (0-2); EOSINOPHILS % (AUTO) 0.2 % (0-6); HEMATOCRIT 45.2 % (36.0-47.0); LYMPHOCYTES % (AUTO) 7.3 % (13-45); MEAN CORPUSCULAR HEMOGLOBIN 33.3 pg (27.0-33.4); MEAN CORPUSCULAR HGB CONC 33.1 g/dL (32.0-36.0); MEAN CORPUSCULAR VOLUME 101 fl (80-97); MONOCYTES % (AUTO) 8.9 % (3-13); PLATELET COUNT 198 10^3/uL (150-450); RED BLOOD COUNT 4.49 10^6/uL (3.72-5.28); RED CELL DISTRIBUTION WIDTH 13.4 % (11.5-14.0); SEGMENTED NEUTROPHILS % (AUTO) 83.2 % (42-78); TOTAL CELLS COUNTED % (AUTO) 100 %; WHITE BLOOD COUNT 9.1 10^3/uL (4.0-10.5)
[2018-04-30 20:22] LABS: INTERNATIONAL RATION (INR) 1.32
[2018-04-30 20:33] LABS: ALANINE AMINOTRANSFERASE 46 U/L (9-52); ALBUMIN 3.5 g/dL (3.5-5.0); ALKALINE PHOSPHATASE 61 U/L (38-126); ANION GAP 10 (5-19); ASPARTATE AMINO TRANSFERASE 46 U/L (14-36); BILIRUBIN,DIRECT 0.3 mg/dL (0.0-0.4); BILIRUBIN,TOTAL 0.7 mg/dL (0.2-1.3); BLOOD UREA NITROGEN 33 mg/dL (7-20); CALCIUM 8.8 mg/dL (8.4-10.2); CARBON DIOXIDE 31 mmol/L (22-30); CHLORIDE 100 mmol/L (98-107); GLUCOSE 134 mg/dL (75-110); POTASSIUM 4.9 mmol/L (3.6-5.0); SODIUM 140.9 mmol/L (137-145)
[2018-04-30 20:45] LABS: APPEARANCE,URINE TURBID; BILIRUBIN,URINE MODERATE (NEGATIVE); COLOR,URINE AMBER; GLUCOSE, URINE NEGATIVE (NEGATIVE); KETONES,URINE NEGATIVE (NEGATIVE); LEUKOCYTE ESTERASE,URINE LARGE (NEGATIVE); NITRITE,URINE POSITIVE (NEGATIVE); PROTEIN,URINE 100 mg/dL (NEGATIVE); UROBILINOGEN,URINE NEGATIVE mg/dL (<2.0)
[2018-04-30 20:45] LABS: ARTERIAL BLOOD BASE EXCESS 0.8 mmol/L; ARTERIAL BLOOD HCO3 29.7 mmol/L (20-24); ARTERIAL BLOOD O2 SATURATION 87.8 % (94-98); ARTERIAL BLOOD PCO2 66.3 mmHg (35-45); ARTERIAL BLOOD PH 7.27 (7.35-7.45); ARTERIAL BLOOD PO2 61.9 mmHg (80-100); ARTERIAL BLOOD TOTAL CO2 31.7 mmol/L (21-25)
[2018-04-30 20:46] LABS: ARTERIAL BLOOD FIO2 5L
[2018-04-30] MEDS ORDERED: METHYLPREDNISOLONE INJ 125 MG/2 ML SDV IV ONE (20:49)
[2018-04-30] MEDS ORDERED: ASPIRIN 81 MG TABLET, CHEWABLE PO ONE (20:49)
--- NOTE | 2018-04-30 21:08 | RADIOLOGY REPORT (SQ) ---
EXAM DESCRIPTION: XR CHEST 1 VIEW COMPLETED DATE/TME: 04/30/2018 19:51 CLINICAL HISTORY: 83 years, Female, hypoxia, cough COMPARISON: None. NUMBER OF VIEWS: TECHNIQUE: LIMITATIONS: None. FINDINGS: There is elevation of the right hemidiaphragm of unknown etiology. No evidence of acute pulmonary infiltrate or pleural effusion. The heart is normal in size. No evidence of heart failure. There are atherosclerotic changes and tortuosity of the thoracic aorta. IMPRESSION: Elevated right hemidiaphragm. No acute infiltrate. copyright 2010 [employer]- All Rights Reserved
[2018-04-30] MEDS ORDERED: NOREPINEPHRINE BITARTRATE INJ/PF 4 MG/4 ML SDV IV ONE (21:10)
[2018-04-30] MEDS ORDERED: DEXTROSE 5%-WATER 250 ML with NOREPINEPHRINE BITARTRATE 4 MG IV PRN ×2 (21:26)
--- NOTE | 2018-04-30 22:18 | RADIOLOGY REPORT (SQ) ---
EXAM DESCRIPTION: XR ABDOMEN 1 VIEW (KUB) COMPLETED DATE/TME: 04/30/2018 21:31 CLINICAL HISTORY: 83 years, Female, right femoral line COMPARISON: None. NUMBER OF VIEWS: TECHNIQUE: LIMITATIONS: None. FINDINGS: The tip of the right femoral venous line projects over the mid right sacrum. No evidence of bowel obstruction. There are calcified phleboliths in the pelvis. IMPRESSION: The tip of the right femoral venous line projects over the mid right sacrum. copyright 2010 [employer]- All Rights Reserved
[2018-04-30] MEDS ORDERED: GLUCAGON,HUMAN RECOMB 1 MG INJ IM PRN (22:31)
[2018-04-30] MEDS ORDERED: DEXTROSE 40% GEL 15 GM TUBE PO PRN ×2 (22:31)
[2018-04-30] MEDS ORDERED: DEXTROSE 50%-WATER 25 GM/50 ML DISP.SYRIN IV PRN ×2 (22:31)
[2018-04-30] MEDS ORDERED: IPRATROPIUM/ALBUTEROL 0.5-2.5 MG/3 ML AMPUL NEB PRN (22:31)
[2018-04-30] MEDS ORDERED: VANCOMYCIN HCL 1,000 MG in DEXTROSE 5%-WATER 250 ML IV ONE (22:36)
[2018-04-30] MEDS ORDERED: VANCOMYCIN HCL 0 MG in DEXTROSE 5%-WATER 250 ML IV NR (22:45)
[2018-04-30] MEDS ORDERED: VANCOMYCIN HCL INJ 500 MG VIAL IV PRN (22:52)
[2018-04-30] MEDS ORDERED: VANCOMYCIN HCL INJ 1000 MG VIAL IV PRN (22:52)
[2018-04-30] MEDS ORDERED: VANCOMYCIN HCL IV NR (23:00)
[2018-04-30] MEDS ORDERED: WATER IV NR (23:00)
[2018-04-30] MEDS ORDERED: DEXTROSE 5% IV NR (23:00)
[2018-04-30] MEDS ORDERED: VANCOMYCIN HCL 1,500 MG in DEXTROSE 5%-WATER 250 ML IV ONE (23:00)
[2018-04-30] MEDS: NORMAL SALINE 1000 ML 1,000 ML IV PRN (23:33)
[2018-04-30] MEDS: INSULIN LISPRO 100 UNIT/ML 3 ML VIAL SUBCUT SCH (23:38)
[2018-05-01] MEDS: NORMAL SALINE 1000 ML 1,000 ML IV PRN (01:53)
--- NOTE | 2018-05-01 05:17 | PDOC H&P ---
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 She presents with 24 hours of foul-smelling urine and diarrhea developing altered mental status prompting a call to EMS finding her hypotensive with a systolic pressure of 60 over palp, hypoxic with a pulse oximetry of 63% on room air. She started on oxygen and bolus of LR in route to the emergency department where she is found to have persistent altered mental status and hypotension. ABG reveals a hypercapnic and hypoxic respiratory failure with a PCO2 of 66 and PO2 of 62. Chemistry reveals acute renal failure and metabolic acidosis. She is started on BiPAP, receives a second liter of LR, empiric antibiotics and started on levofed. She is referred to the hospitalist for admission. Patient's daughter and power of state's attorney is at bedside who denies recent illness or antibiotics in the last month. Her CODE STATUS is verified as full code. Past Medical History Cardiac Medical History: Reports: Hypertension Pulmonary Medical History: Reports: Chronic Obstructive Pulmonary Disease (COPD), Pneumonia GI Medical History: Reports: Gastroesophageal Reflux Disease Musculoskeltal Medical History: Reports: Arthritis Psychiatric Medical History: Reports: Depression - anxiety Past Surgical History Past Surgical History: Reports: Cholecystectomy, Hysterectomy, Orthopedic Surgery - R knee replacement; Lower back surgery L5., Other - right hemicolectomy for diverticulitis per daughter. B/L cataract sx. Social History Information Source: Patient, Relative, Emergency Med Personnel, [facility] Records Smoking Status: Former Smoker Frequency of Alcohol Use: None Hx Recreational Drug Use: No Hx Prescription Drug Abuse: No - Advance Directive Resuscitation Status: Full Code Family History Family History: Hypertension Parental Family History Reviewed: Yes Children Family History Reviewed: Yes Sibling(s) Family History Reviewed.: Yes Medication/Allergy Home Medications: Citalopram Hydrobromide [Citalopram HBr] 20 mg PO DAILY 07/05/17 Prednisolone Acetate [Pred Forte] 1 drop OS DAILY MDD STARTING 07/09 ENDING 07/1507/05/17 Acetaminophen [Tylenol 325 mg Tablet] 650 mg PO Q4HP PRN tablet 07/21/17 Atorvastatin Calcium [Lipitor 20 mg Tablet] 40 mg PO QHS tablet 07/21/17 Cefazolin Sodium [Ancef Inj 1 gm Vial] 2 gm IV Q8 vial 07/21/17 Dextrose 50%-Water [Dextrose Inj 50% Syringe (25 gm/50 ml)] 12.5 gm IV PRN PRN disp.syrin 07/21/17 Dextrose 50%-Water [Dextrose Inj 50% Syringe (25 gm/50 ml)] 25 gm IV PRN PRN disp.syrin 07/21/17 Dextrose [Glutose 40% Gel 15 gm Tube] 15 gm PO PRN PRN tube 07/21/17 Dextrose [Glutose 40% Gel 15 gm Tube] 30 gm PO PRN PRN tube 07/21/17 Diltiazem HCl [Cardizem 30 mg Tablet] 30 mg PO Q8 tablet 07/21/17 Furosemide [Lasix 40 mg Tablet] 40 mg PO DAILY tablet 07/21/17 Gabapentin [Neurontin 100 mg Capsule] 100 mg PO Q8 capsule 07/21/17 Glucagon,Human Recombinant [Glucagen Inj 1 mg Vial] 1 mg IM PRN PRN vial 07/21/17 Guaifenesin [Mucinex Sr 600 mg Tablet.sa] 600 mg PO BID tablet.sa 07/21/17 Heparin Sodium,Porcine [Heparin Inj 1,000 Unit/ml 10 ml Vial] 0 - 12,000 unit IV .BOLUS PER PROTOCOL PRN vial 07/21/17 Insulin Lispro [Humalog Insulin (Lispro) 100 unit/mL] 0 - 12 unit SUBCUT ACHSP PRN unit 07/21/17 Lactobacillus Acidophilus [Bacid 250 mg Tablet] 500 mg PO BID tab 07/21/17 Lansoprazole [Prevacid 30 mg Odt Tablet] 30 mg PO Q6AM tab.rap. 07/21/17 Losartan Potassium [Cozaar 25 mg Tablet] 25 mg PO Q12 tablet 07/21/17 Nystatin [Mycostatin Topical Powder 15 gm] 1 applic TP BID bottle 07/21/17 Oxycodone HCl [Oxy-Ir 5 mg Tablet] 5 mg PO Q4HP PRN tablet 07/21/17 Potassium Chloride [Klor-Con 10 Meq Capsule ER] 20 meq PO DAILY tablet.sa 07/21/17 Promethazine HCl [Phenergan Inj 25 mg/1 ml Vial] 12.5 mg IV Q4HP PRN vial Zinc Oxide [Zinc Oxide 20% Ointment 28.35 gm] 1 applic TP DAILYP PRN tube 07/21/17 Allergies/Adverse Reactions: Beta-Blockers (Beta-Adrenergic Bloc Allergy (Verified 07/05/17 08:51) Syncope Review of Systems ROS unobtainable: Due to mental status Constitutional: ABSENT: chills, fever(s), headache(s), weight gain, weight loss Eyes: ABSENT: visual disturbances Ears: ABSENT: hearing changes Cardiovascular: ABSENT: chest pain, dyspnea on exertion, edema, orthropnea, palpitations Respiratory: ABSENT: cough, hemoptysis Gastrointestinal: ABSENT: abdominal pain, constipation, diarrhea, hematemesis, hematochezia, nausea, vomiting Genitourinary: ABSENT: dysuria, hematuria Musculoskeletal: ABSENT: joint swelling Integumentary: ABSENT: rash, wounds Neurological: ABSENT: abnormal gait, abnormal speech, confusion, dizziness, focal weakness, syncope Psychiatric: ABSENT: anxiety, depression, homidical ideation, suicidal ideation Endocrine: ABSENT: cold intolerance, heat intolerance, polydipsia, polyuria Hematologic/Lymphatic: ABSENT: easy bleeding, easy bruising Physical Exam Vital Signs: Temp Pulse Resp BP Pulse Ox 98.6 F 78 21 H 119/65 93 05/01/18 01:19 05/01/18 01:19 05/01/18 02:03 05/01/18 02:03 05/01/18 02:03 Intake & Output 04/29/18 04/30/18 05/01/18 11:59 11:59 11:59 Intake Total 2289 Output Total 35 Balance 2254 Weight 107.3 kg General appearance: PRESENT: cooperative, hard of hearing, mild distress, obese. ABSENT: disheveled Head exam: PRESENT: atraumatic, normocephalic Eye exam: PRESENT: conjunctiva pink, EOMI, PERRLA. ABSENT: scleral icterus Ear exam: PRESENT: normal external ear exam Mouth exam: PRESENT: dry mucosa, neck supple. ABSENT: moist Neck exam: ABSENT: carotid bruit, JVD, lymphadenopathy, thyromegaly Respiratory exam: PRESENT: accessory muscle use, prolonged expiratory phas. ABSENT: decreased breath sounds, rales Cardiovascular exam: PRESENT: RRR. ABSENT: diastolic murmur, rubs, systolic murmur Pulses: PRESENT: normal dorsalis pedis pul Vascular exam: PRESENT: normal capillary refill GI/Abdominal exam: PRESENT: normal bowel sounds, soft. ABSENT: distended, guarding, mass, organolmegaly, rebound, tenderness Rectal exam: PRESENT: deferred Extremities exam: PRESENT: full ROM. ABSENT: calf tenderness, clubbing, pedal edema Neurological exam: PRESENT: alert, awake, oriented to person, oriented to place, oriented to situation, CN II-XII grossly intact. ABSENT: motor sensory deficit Psychiatric exam: PRESENT: appropriate affect, normal mood. ABSENT: homicidal ideation, suicidal ideation Skin exam: PRESENT: dry, intact, warm. ABSENT: cyanosis, rash Results Laboratory Results: 04/30/18 20:00 04/30/18 20:00 04/30/18 04/30/18 04/30/18 20:00 20:00 20:00 WBC 9.1 RBC 4.49 Hgb 15.0 Hct 45.2 MCV 101 H MCH 33.3 MCHC 33.1 RDW 13.4 Plt Count 198 Seg Neutrophils % 83.2 H Lymphocytes % 7.3 L Monocytes % 8.9 Eosinophils % 0.2 Basophils % 0.4 Absolute Neutrophils 7.6 Absolute Lymphocytes 0.7 Absolute Monocytes 0.8 Absolute Eosinophils 0.0 Absolute Basophils 0.0 Carbonic Acid HCO3/H2CO3 Ratio ABG pH ABG pCO2 ABG pO2 ABG HCO3 ABG O2 Saturation ABG Base Excess FiO2 Sodium 140.9 Potassium 4.9 Chloride 100 Carbon Dioxide 31 H Anion Gap 10 BUN 33 H Creatinine 1.29 H Est GFR ( Amer) 48 L Est GFR (Non-Af Amer) 39 L Glucose 134 H Lactic Acid 1.4 Calcium 8.8 Total Bilirubin 0.7 AST 46 H ALT 46 Alkaline Phosphatase 61 Total Protein 6.0 L Albumin 3.5 Urine Color Urine Appearance Urine pH Ur Specific [place] Urine Protein Urine Glucose (UA) Urine Ketones Urine Blood Urine Nitrite Ur Leukocyte Esterase Urine WBC (Auto) Urine RBC (Auto) 04/30/18 04/30/18 20: 20:36 WBC RBC Hgb Hct MCV MCH MCHC RDW Plt Count Seg Neutrophils % Lymphocytes % Monocytes % Eosinophils % Basophils % Absolute Neutrophils Absolute Lymphocytes Absolute Monocytes Absolute Eosinophils Absolute Basophils Carbonic Acid 2.00 H HCO3/H2CO3 Ratio 14:1 ABG pH 7.27 L ABG pCO2 66.3 H ABG pO2 61.9 L ABG HCO3 29.7 H ABG O2 Saturation 87.8 L ABG Base Excess 0.8 FiO2 5L Sodium Potassium Chloride Carbon Dioxide Anion Gap BUN Creatinine Est GFR ( Amer) Est GFR (Non-Af Amer) Glucose Lactic Acid Calcium Total Bilirubin AST ALT Alkaline Phosphatase Total Protein Albumin Urine Color GORAN Urine Appearance TURBID Urine pH 8.0 Ur Specific [place] 1.020 Urine Protein 100 H Urine Glucose (UA) NEGATIVE Urine Ketones NEGATIVE Urine Blood NEGATIVE Urine Nitrite POSITIVE H Ur Leukocyte Esterase LARGE H Urine WBC (Auto) >182 Urine RBC (Auto) 13 04/30/18 04/30/18 20:00 23:40 Troponin I 0.199 0.263 Impressions: Chest X-Ray 04/30/18 19:51 IMPRESSION: Elevated right hemidiaphragm. No acute infiltrate. copyright 2010 [employer]- All Rights Reserved KUB X-Ray 04/30/18 21:31 IMPRESSION: The tip of the right femoral venous line projects over the mid right sacrum. copyright 2010 [employer]- All Rights Reserved Assessment & Plan - Diagnosis (1) Septic shock Is this a current diagnosis for this admission?: Yes Plan: Secondary to urinary tract infection, complicated by multisystem organ failure. IV fluid challenge, Levophed, consider Solu-Cortef. Follow-up CBC urine culture. (2) UTI (urinary tract infection) Qualifiers: Urinary tract infection type: acute cystitis Hematuria presence: without hematuria Qualified Code(s): N30.00 - Acute cystitis without hematuria Is this a current diagnosis for this admission?: Yes Plan: No history of nephrolithiasis. Rocephin and vancomycin initiated. Follow-up blood and urine culture (3) Hypoxia Is this a current diagnosis for this admission?: Yes Plan: Secondary to severe sepsis oxygen and BiPAP. Follow-up pulse oximetry (4) Renal failure Qualifiers: Renal failure chronicity: acute Acute renal failure type: unspecified Qualified Code(s): N17.9 - Acute kidney failure, unspecified Is this a current diagnosis for this admission?: Yes Plan: Secondary to UTI with sepsis, IV fluid challenge, avoid nephrotoxic meds and doses, follow-up chemistry (5) Acute metabolic encephalopathy Is this a current diagnosis for this admission?: Yes Plan: Secondary to severe sepsis. Supportive care (6) Elevated troponin Is this a current diagnosis for this admission?: Yes Plan: Secondary to severe sepsis, demand mismatch and hypoxia. Denies chest pain, continue aspirin resuscitative measures. Follow-up serial cardiac enzymes and EKG
[2018-05-01 06:13] LABS: ABSOLUTE LYMPHOCYTES (AUTO) 0.4 10^3/uL (0.5-4.7); ABSOLUTE MONOCYTES (AUTO) 0.1 10^3/uL (0.1-1.4); ABSOLUTE NEUT (AUTO) 5.7 10^3/uL (1.7-8.2); BASOPHILS % (AUTO) 0.2 % (0-2); HEMOGLOBIN 13.5 g/dL (12.0-15.5); LYMPHOCYTES % (AUTO) 6.4 % (13-45); MEAN CORPUSCULAR HEMOGLOBIN 33.7 pg (27.0-33.4); MEAN CORPUSCULAR HGB CONC 33.1 g/dL (32.0-36.0); MEAN CORPUSCULAR VOLUME 102 fl (80-97); MONOCYTES % (AUTO) 1.7 % (3-13); PLATELET COUNT 150 10^3/uL (150-450); RED BLOOD COUNT 4.02 10^6/uL (3.72-5.28); RED CELL DISTRIBUTION WIDTH 13.4 % (11.5-14.0); SEGMENTED NEUTROPHILS % (AUTO) 91.7 % (42-78); TOTAL CELLS COUNTED % (AUTO) 100 %; WHITE BLOOD COUNT 6.2 10^3/uL (4.0-10.5)
[2018-05-01] MEDS: INSULIN LISPRO 100 UNIT/ML 3 ML VIAL SUBCUT SCH ×3 (06:17→17:48)
[2018-05-01] MEDS: DILTIAZEM HCL 30 MG TABLET PO SCH ×3 (06:18→21:26)
[2018-05-01 06:38] LABS: ANION GAP 9 (5-19); BLOOD UREA NITROGEN 31 mg/dL (7-20); CALCIUM 7.8 mg/dL (8.4-10.2); CARBON DIOXIDE 27 mmol/L (22-30); CHLORIDE 105 mmol/L (98-107); GLUCOSE 144 mg/dL (75-110); POTASSIUM 4.9 mmol/L (3.6-5.0); SODIUM 140.5 mmol/L (137-145)
[2018-05-01] MEDS: CEFEPIME 2 GM/D5W RTU 2 GM/50 ML RTUPB IV SCH ×2 (08:47→21:26)
[2018-05-01] MEDS: PANTOPRAZOLE SODIUM 40 MG VIAL IV SCH ×2 (11:06→21:26)
[2018-05-01] MEDS: DOCUSATE SODIUM 100 MG CAPSULE PO SCH ×2 (11:07→17:48)
[2018-05-01] MEDS: VANCOMYCIN HCL 1,000 MG in DEXTROSE 5%-WATER 250 ML IV SCH ×2 (11:09→21:25)
--- NOTE | 2018-05-01 13:08 | EKG REPORT ---
SEVERITY:- BORDERLINE ECG - SINUS RHYTHM LVH BY VOLTAGE CONSIDER ANTERIOR INFARCT : Confirmed by: Eliana Holden MD 01-May-2018 13:07:52
--- NOTE | 2018-05-01 13:08 | EKG REPORT ---
SEVERITY:- ABNORMAL ECG - SINUS RHYTHM FIRST DEGREE AV BLOCK BORDERLINE T ABNORMALITIES, ANT-LAT LEADS : Confirmed by: Eliana Holden MD 01-May-2018 13:07:47
--- NOTE | 2018-05-01 15:42 | PDOC PROGRESS REPORT ---
Subjective Progress Note for:: 05/01/18 Subjective:: And she nodded no when I asked if she was having any pain. She noted no again when I asked her if she was having any trouble breathing. Her nurse tells me that as the day has gone on she has awakened more. She is now taking some clear liquids. Her Levophed has been titrated to off. She is maintaining her blood pressure. Reason For Visit: UTI SEPSIS AMS ARF Physical Exam Vital Signs: Temp Pulse Resp BP Pulse Ox 98.2 F 85 17 125/74 98 05/01/18 14:00 05/01/18 14:00 05/01/18 14:00 05/01/18 14:00 05/01/18 14:00 Intake & Output 04/30/18 05/01/18 05/02/18 06:59 06:59 06:59 Intake Total 3289 300 Output Total 145 375 Balance 3144 -75 Weight 107.3 kg General appearance: PRESENT: no acute distress Head exam: PRESENT: atraumatic, normocephalic Eye exam: ABSENT: periorbital swelling Mouth exam: PRESENT: dry mucosa Respiratory exam: PRESENT: clear to auscultation claudia, unlabored. ABSENT: rales, rhonchi, wheezes Cardiovascular exam: PRESENT: RRR. ABSENT: systolic murmur Pulses: PRESENT: normal radial pulses, normal dorsalis pedis pul GI/Abdominal exam: PRESENT: normal bowel sounds, soft. ABSENT: distended, firm, guarding, tenderness Rectal exam: PRESENT: deferred Gentrourinary exam: PRESENT: indwelling catheter Extremities exam: PRESENT: pedal edema Neurological exam: PRESENT: altered, oriented to person, oriented to place. ABSENT: alert, oriented to situation Psychiatric exam: ABSENT: agitated, anxious Skin exam: PRESENT: dry, warm Results Laboratory Results: 05/01/18 06:00 05/01/18 06:00 04/30/18 04/30/18 04/30/18 20:00 20:00 20:00 WBC 9.1 RBC 4.49 Hgb 15.0 Hct 45.2 MCV 101 H MCH 33.3 MCHC 33.1 RDW 13.4 Plt Count 198 Seg Neutrophils % 83.2 H Lymphocytes % 7.3 L Monocytes % 8.9 Eosinophils % 0.2 Basophils % 0.4 Absolute Neutrophils 7.6 Absolute Lymphocytes 0.7 Absolute Monocytes 0.8 Absolute Eosinophils 0.0 Absolute Basophils 0.0 Carbonic Acid HCO3/H2CO3 Ratio ABG pH ABG pCO2 ABG pO2 ABG HCO3 ABG O2 Saturation ABG Base Excess FiO2 Sodium 140.9 Potassium 4.9 Chloride 100 Carbon Dioxide 31 H Anion Gap 10 BUN 33 H Creatinine 1.29 H Est GFR ( Amer) 48 L Est GFR (Non-Af Amer) 39 L Glucose 134 H Lactic Acid 1.4 Calcium 8.8 Total Bilirubin 0.7 AST 46 H ALT 46 Alkaline Phosphatase 61 Total Protein 6.0 L Albumin 3.5 Urine Color Urine Appearance Urine pH Ur Specific [place] Urine Protein Urine Glucose (UA) Urine Ketones Urine Blood Urine Nitrite Ur Leukocyte Esterase Urine WBC (Auto) Urine RBC (Auto) 04/30/18 04/30/18 05/01/18 20:19 20:36 06:00 WBC 6.2 RBC 4.02 Hgb 13.5 Hct 41.0 MCV 102 H MCH 33.7 H MCHC 33.1 RDW 13.4 Plt Count 150 Seg Neutrophils % 91.7 H Lymphocytes % 6.4 L Monocytes % 1.7 L Eosinophils % 0.0 Basophils % 0.2 Absolute Neutrophils 5.7 Absolute Lymphocytes 0.4 L Absolute Monocytes 0.1 Absolute Eosinophils 0.0 Absolute Basophils 0.0 Carbonic Acid 2.00 H HCO3/H2CO3 Ratio 14:1 ABG pH 7.27 L ABG pCO2 66.3 H ABG pO2 61.9 L ABG HCO3 29.7 H ABG O2 Saturation 87.8 L ABG Base Excess 0.8 FiO2 5L Sodium Potassium Chloride Carbon Dioxide Anion Gap BUN Creatinine Est GFR ( Amer) Est GFR (Non-Af Amer) Glucose Lactic Acid Calcium Total Bilirubin AST ALT Alkaline Phosphatase Total Protein Albumin Urine Color GORAN Urine Appearance TURBID Urine pH 8.0 Ur Specific [place] 1.020 Urine Protein 100 H Urine Glucose (UA) NEGATIVE Urine Ketones NEGATIVE Urine Blood NEGATIVE Urine Nitrite POSITIVE H Ur Leukocyte Esterase LARGE H Urine WBC (Auto) >182 Urine RBC (Auto) 13 05/01/18 05/01/18 06:00 07:35 WBC RBC Hgb Hct MCV MCH MCHC RDW Plt Count Seg Neutrophils % Lymphocytes % Monocytes % Eosinophils % Basophils % Absolute Neutrophils Absolute Lymphocytes Absolute Monocytes Absolute Eosinophils Absolute Basophils Carbonic Acid HCO3/H2CO3 Ratio ABG pH ABG pCO2 ABG pO2 ABG HCO3 ABG O2 Saturation ABG Base Excess FiO2 Sodium 140.5 Potassium 4.9 Chloride 105 Carbon Dioxide 27 Anion Gap 9 BUN 31 H Creatinine 0.99 Est GFR ( Amer) > 60 Est GFR (Non-Af Amer) 53 L Glucose 144 H Lactic Acid 0.7 Calcium 7.8 L Total Bilirubin AST ALT Alkaline Phosphatase Total Protein Albumin Urine Color Urine Appearance Urine pH Ur Specific [place] Urine Protein Urine Glucose (UA) Urine Ketones Urine Blood Urine Nitrite Ur Leukocyte Esterase Urine WBC (Auto) Urine RBC (Auto) 04/30/18 04/30/18 05/01/18 20:00 23:40 06:00 Troponin I 0.199 0.263 0.175 05/01/18 11:48 Troponin I 0.112 Impressions: Chest X-Ray 04/30/18 19:51 IMPRESSION: Elevated right hemidiaphragm. No acute infiltrate. copyright 2010 [employer]- All Rights Reserved KUB X-Ray 04/30/18 21:31 IMPRESSION: The tip of the right femoral venous line projects over the mid right sacrum. copyright 2010 [employer]- All Rights Reserved Assessment & Plan - Diagnosis (1) Sepsis associated hypotension Is this a current diagnosis for this admission?: Yes Plan: Blood cultures are negative to date and pending, urinalysis looks infected, urine culture is now growing gram-negative rods. Patient is improving on vancomycin and cefepime and we will continue these antibiotics until culture data is final. If she does not improve we can consider double covering gram- negative organisms. Levophed has been discontinued. She is now maintaining her blood pressure. (2) Elevated troponin Is this a current diagnosis for this admission?: Yes Plan: Probably related to acute illness. Patient may meet criteria for inpatient cath after she recovers from this acute illness. We will consider consultation with cardiology when she is more stable. Troponin has now trended down. (3) UTI (urinary tract infection) Qualifiers: Urinary tract infection type: acute cystitis Hematuria presence: without hematuria Qualified Code(s): N30.00 - Acute cystitis without hematuria Is this a current diagnosis for this admission?: Yes Plan: Please see sepsis above. (4) Hypercholesterolemia Is this a current diagnosis for this admission?: Yes Plan: Continue her statin. (5) VTE (venous thromboembolism) Is this a current diagnosis for this admission?: Yes Plan: Patient is on apixaban 5 mg p.o. twice daily. She, per chart review, has had both DVT and PE. I do not see evidence of A. fib. This is probably her treatment for her VT ease. We can get more information from daughter when she comes in. Patient cannot give me the information currently due to acute illness. I have restarted her apixaban. (6) Depression with anxiety Is this a current diagnosis for this admission?: Yes Plan: I have restarted her Celexa, first dose now (7) Metabolic encephalopathy Is this a current diagnosis for this admission?: Yes Plan: Patient has been confused since admission. She was confused at home. We do not know what her baseline is. She was not able to give me too much information this morning and her nurse tells me that she is still confused but is becoming more redirectable. We will confer with her daughter when she comes in. - Time Time Spent with patient: 25-34 minutes
[2018-05-01 16:17] LABS: ANION GAP 7 (5-19); BLOOD UREA NITROGEN 31 mg/dL (7-20); CALCIUM 7.5 mg/dL (8.4-10.2); CARBON DIOXIDE 27 mmol/L (22-30); CHLORIDE 105 mmol/L (98-107); GLUCOSE 144 mg/dL (75-110); POTASSIUM 4.3 mmol/L (3.6-5.0); SODIUM 138.8 mmol/L (137-145)
[2018-05-01] MEDS: CITALOPRAM HYDROBROMIDE 20 MG TABLET PO SCH (17:48)
[2018-05-01] MEDS: APIXABAN 5 MG TABLET PO SCH (17:48)
[2018-05-01] MEDS: ATORVASTATIN CALCIUM 40 MG TABLET PO SCH (21:26)
[2018-05-02] MEDS: INSULIN LISPRO 100 UNIT/ML 3 ML VIAL SUBCUT SCH ×5 (00:35→23:47)
[2018-05-02 04:45] LABS: ABSOLUTE LYMPHOCYTES (AUTO) 1.2 10^3/uL (0.5-4.7); ABSOLUTE MONOCYTES (AUTO) 1.2 10^3/uL (0.1-1.4); ABSOLUTE NEUT (AUTO) 6.9 10^3/uL (1.7-8.2); BASOPHILS % (AUTO) 0.3 % (0-2); HEMATOCRIT 39.3 % (36.0-47.0); HEMOGLOBIN 13.3 g/dL (12.0-15.5); LYMPHOCYTES % (AUTO) 12.4 % (13-45); MEAN CORPUSCULAR HEMOGLOBIN 33.8 pg (27.0-33.4); MEAN CORPUSCULAR HGB CONC 33.7 g/dL (32.0-36.0); MEAN CORPUSCULAR VOLUME 100 fl (80-97); MONOCYTES % (AUTO) 13.3 % (3-13); PLATELET COUNT 169 10^3/uL (150-450); RED BLOOD COUNT 3.92 10^6/uL (3.72-5.28); RED CELL DISTRIBUTION WIDTH 13.1 % (11.5-14.0); TOTAL CELLS COUNTED % (AUTO) 100 %; WHITE BLOOD COUNT 9.4 10^3/uL (4.0-10.5)
[2018-05-02] MEDS: DILTIAZEM HCL 30 MG TABLET PO SCH ×3 (05:46→21:13)
[2018-05-02] MEDS: CEFEPIME 2 GM/D5W RTU 2 GM/50 ML RTUPB IV SCH (09:30)
[2018-05-02] MEDS: PANTOPRAZOLE SODIUM 40 MG VIAL IV SCH ×2 (09:30→21:13)
[2018-05-02] MEDS: APIXABAN 5 MG TABLET PO SCH ×2 (09:31→18:18)
[2018-05-02] MEDS: DOCUSATE SODIUM 100 MG CAPSULE PO SCH ×2 (09:31→18:18)
[2018-05-02] MEDS: CYANOCOBALAMIN (VITAMIN B-12) 1,000 MCG TABLET PO SCH (09:31)
[2018-05-02] MEDS: CITALOPRAM HYDROBROMIDE 20 MG TABLET PO SCH (09:31)
[2018-05-02] MEDS: VANCOMYCIN HCL 1,000 MG in DEXTROSE 5%-WATER 250 ML IV SCH (09:40)
--- NOTE | 2018-05-02 17:20 | PDOC PROGRESS REPORT ---
Subjective Progress Note for:: 05/02/18 Subjective:: This is a very pleasant 83 years old female patient brought by EMS for altered mental status and hypotension. When EMS found the patient her systolic blood pressure was 60 and she was hypoxic. Patient has been managed with aggressive hydration and empirically started on vancomycin and cefepime. This morning I seen patient resting in bed comfortably and her O2 saturation was 97% and other vital signs are also stable. I downgraded her to IMCU. Reason For Visit: UTI SEPSIS AMS ARF Physical Exam Vital Signs: Temp Pulse Resp BP Pulse Ox 99.0 F 70 20 146/76 H 99 05/02/18 15:37 05/02/18 15:37 05/02/18 15:37 05/02/18 15:37 05/02/18 15:37 Intake & Output 05/01/18 05/02/18 05/03/18 06:59 06:59 06:59 Intake Total 3289 600 1202 Output Total 145 1375 855 Balance 3144 -775 347 Weight 107.3 kg 110.2 kg 110.2 kg General appearance: PRESENT: no acute distress Head exam: PRESENT: atraumatic Eye exam: PRESENT: conjunctiva pink Mouth exam: PRESENT: moist Neck exam: ABSENT: carotid bruit, JVD, lymphadenopathy, thyromegaly Respiratory exam: PRESENT: crackles, decreased breath sounds Cardiovascular exam: PRESENT: RRR. ABSENT: diastolic murmur, rubs, systolic murmur GI/Abdominal exam: PRESENT: normal bowel sounds, soft. ABSENT: distended, guarding, mass, organolmegaly, rebound, tenderness Neurological exam: PRESENT: alert, awake Results Laboratory Results: 05/02/18 04:36 05/01/18 15:47 05/02/18 04:36 WBC 9.4 RBC 3.92 Hgb 13.3 Hct 39.3 MCV 100 H MCH 33.8 H MCHC 33.7 RDW 13.1 Plt Count 169 Seg Neutrophils % 74.0 Lymphocytes % 12.4 L Monocytes % 13.3 H Eosinophils % 0.0 Basophils % 0.3 Absolute Neutrophils 6.9 Absolute Lymphocytes 1.2 Absolute Monocytes 1.2 Absolute Eosinophils 0.0 Absolute Basophils 0.0 04/30/18 20:19 Catheterized Urine Urine Culture - Final Proteus Mirabilis 04/30/18 04/30/18 05/01/18 20:00 23:40 06:00 Troponin I 0.199 0.263 0.175 05/01/18 05/01/18 11:48 17:45 Troponin I 0.112 0.104 Impressions: Chest X-Ray 04/30/18 19:51 IMPRESSION: Elevated right hemidiaphragm. No acute infiltrate. copyright 2010 [employer]- All Rights Reserved KUB X-Ray 04/30/18 21:31 IMPRESSION: The tip of the right femoral venous line projects over the mid right sacrum. copyright 2010 [employer]- All Rights Reserved Assessment & Plan - Diagnosis (1) Acute metabolic encephalopathy Is this a current diagnosis for this admission?: Yes Plan: Has been improving (2) Septic shock Is this a current diagnosis for this admission?: Yes Plan: Currently patient is hemodynamically stable. Her urine culture is positive for Proteus mirabilis which could be the culprit for her septic shock. I will continue the cefepime and discontinue the vancomycin. (3) Acute respiratory failure with hypoxia and hypercapnia Is this a current diagnosis for this admission?: Yes Plan: Improving continue current regimen (4) Acute kidney injury Is this a current diagnosis for this admission?: Yes Plan: Has resolved (5) Metabolic acidosis Is this a current diagnosis for this admission?: Yes Plan: Has been improving (6) COPD (chronic obstructive pulmonary disease) Is this a current diagnosis for this admission?: Yes Plan: continue prn broncodialator
--- NOTE | 2018-05-02 19:13 | XCELERA REPORT ---
[address] [address] Transthoracic Echocardiogram Report Name: RAFAELA RHODES Age: 83 yrs Gender: Female : 1935 Patient Status: Inpatient Patient Location: ICU^601^A Study Date: 05/01/2018 07:44 PM Height: 65 in Weight: 236 lb BSA: 2.1 m2 Procedure: A two-dimensional transthoracic echocardiogram with color flow and Doppler was performed. The study was technically difficult with many images being suboptimal in quality. Study Quality: Technically suboptimal. Reason For Study: eval wall motion abnormalities History: HYPENSION / PULMONARY EMBOLI. Ordering Physician: ZOHRA CAMPBELL Performed By: Ortiz Granado Interpretation Summary The left ventricle is normal in size. There is mild concentric left ventricular hypertrophy. LV EF is 60% The left ventricular ejection fraction is within normal limits. Doppler measurements suggest impaired left ventricular relaxation, which is associated with grade I/IV or mild diastolic dysfunction No True apical 2 chamber views obtained.Hence cannot comment on the apical anterior , the basal anterior, the basal inferior and apical inferior tuttle.The mid anterior , the mid inferior and the rest of the LV tuttle contract normally. . LVEF is normal and is greater than 60% in the limited views. The right ventricle is not well visualized secondary to technical limitations Right atrium not well visualized secondary to technical limitations The left atrium is borderline dilated. There is no evidence of mitral valve prolapse. There is no mitral valve stenosis. Probably mild MR. There is no aortic valve stenosis No aortic regurgitation is present. There is no tricuspid stenosis. Probably mild TR.RVSP is 30 mm of Hg , with RA mean of 10. There is no pulmonic valvular stenosis. There is a trace amount of pulmonic regurgitation The aortic root is not well visualized but is probably normal size. There is no pericardial effusion. MMode/2D Measurements & Calculations RVDd: 2.8 cm LVIDd: 4.8 cm FS: 30.5 % Ao root diam: 3.7 cm IVSd: 1.2 cm LVIDs: 3.3 cm EDV(Teich): 106.0 ml Ao root area: 10.9 cm2 LVPWd: 1.5 cm ESV(Teich): 44.6 ml LA dimension: 4.1 cm EF(Teich): 57.9 % LVOT diam: 2.3 cm LVOT area: 4.1 cm2 Doppler Measurements & Calculations MV E max nova: MV P1/2t max nova: Ao V2 max: LV V1 max P.5 cm/sec 114.0 cm/sec 173.7 cm/sec 6.0 mmHg MV A max nova: MV P1/2t: 92.0 msec Ao max PG: LV V1 max: 134.5 cm/sec MVA(P1/2t): 2.4 cm2 12.1 mmHg 122.8 cm/sec MV E/A: 0.63 MV dec slope: RENY(V,D): 2.9 cm2 363.1 cm/sec2 MV dec time: 0.26 sec MR max nova: PA V2 max: PI end-d nova: TR max nova: 118.1 cm/sec 112.7 cm/sec 90.9 cm/sec 221.3 cm/sec MR max P.6 mmHgPA max P.1 mmHg TR max P.6 mmHg MV P1/2t-pr_phl: 92.0 msec Left Ventricle The left ventricle is normal in size. There is mild concentric left ventricular hypertrophy. LV EF is 60%. The left ventricular ejection fraction is within normal limits. Doppler measurements suggest impaired left ventricular relaxation, which is associated with grade I/IV or mild diastolic dysfunction. No True apical 2 chamber views obtained.Hence cannot comment on the apical anterior , the basal anterior, the basal inferior and apical inferior tuttle.The mid anterior , the mid inferior and the rest of the LV tuttle contract normally. . LVEF is normal and is greater than 60% in the limited views. Right Ventricle The right ventricle is not well visualized secondary to technical limitations. Atria Right atrium not well visualized secondary to technical limitations. The left atrium is borderline dilated. Mitral Valve There is moderate mitral annular calcification. There is no evidence of mitral valve prolapse. There is no vegetation seen on the mitral valve. There is no mitral valve stenosis. Probably mild MR. Aortic Valve There is no aortic valvular vegetation. There is no aortic valve stenosis. There is no LVOT obstruction. No aortic regurgitation is present. Tricuspid Valve There is no tricuspid stenosis. Probably mild TR.RVSP is 30 mm of Hg , with RA mean of 10. Pulmonic Valve There is no pulmonic valvular stenosis. There is a trace amount of pulmonic regurgitation. Great Vessels The aortic root is not well visualized but is probably normal size. Effusions There is no pericardial effusion. : ZOHRA CAMPBELL > Eliana Holden
[2018-05-02] MEDS: ATORVASTATIN CALCIUM 40 MG TABLET PO SCH (21:13)
[2018-05-03 04:24] LABS: ABSOLUTE EOSINOPHILS # (AUTO) 0.2 10^3/uL (0.0-0.6); ABSOLUTE LYMPHOCYTES (AUTO) 1.4 10^3/uL (0.5-4.7); ABSOLUTE MONOCYTES (AUTO) 0.9 10^3/uL (0.1-1.4); ABSOLUTE NEUT (AUTO) 6.1 10^3/uL (1.7-8.2); BASOPHILS % (AUTO) 0.3 % (0-2); EOSINOPHILS % (AUTO) 1.9 % (0-6); HEMATOCRIT 38.8 % (36.0-47.0); LYMPHOCYTES % (AUTO) 16.5 % (13-45); MEAN CORPUSCULAR HEMOGLOBIN 33.6 pg (27.0-33.4); MEAN CORPUSCULAR HGB CONC 33.4 g/dL (32.0-36.0); MEAN CORPUSCULAR VOLUME 100 fl (80-97); MONOCYTES % (AUTO) 10.2 % (3-13); PLATELET COUNT 164 10^3/uL (150-450); RED BLOOD COUNT 3.86 10^6/uL (3.72-5.28); RED CELL DISTRIBUTION WIDTH 12.8 % (11.5-14.0); SEGMENTED NEUTROPHILS % (AUTO) 71.1 % (42-78); TOTAL CELLS COUNTED % (AUTO) 100 %; WHITE BLOOD COUNT 8.6 10^3/uL (4.0-10.5)
[2018-05-03] MEDS: DILTIAZEM HCL 30 MG TABLET PO SCH ×3 (05:19→22:19)
[2018-05-03] MEDS: INSULIN LISPRO 100 UNIT/ML 3 ML VIAL SUBCUT SCH ×4 (05:21→23:07)
[2018-05-03] MEDS: CYANOCOBALAMIN (VITAMIN B-12) 1,000 MCG TABLET PO SCH (09:12)
[2018-05-03] MEDS: CITALOPRAM HYDROBROMIDE 20 MG TABLET PO SCH (09:12)
[2018-05-03] MEDS: DOCUSATE SODIUM 100 MG CAPSULE PO SCH ×2 (09:12→17:34)
[2018-05-03] MEDS: APIXABAN 5 MG TABLET PO SCH ×2 (09:13→17:34)
[2018-05-03] MEDS: CEFEPIME HCL 2 GM in DEXTROSE 5%-WATER 50 ML IV SCH ×2 (09:14→22:20)
[2018-05-03] MEDS: PANTOPRAZOLE SODIUM 40 MG VIAL IV SCH ×2 (09:21→22:20)
[2018-05-03] MEDS: ATORVASTATIN CALCIUM 40 MG TABLET PO SCH (22:19)
[2018-05-04 03:34] LABS: HEMATOCRIT 38.7 % (36.0-47.0); HEMOGLOBIN 13.2 g/dL (12.0-15.5); MEAN CORPUSCULAR HEMOGLOBIN 33.7 pg (27.0-33.4); MEAN CORPUSCULAR HGB CONC 34.2 g/dL (32.0-36.0); MEAN CORPUSCULAR VOLUME 98 fl (80-97); PLATELET COUNT 160 10^3/uL (150-450); RED BLOOD COUNT 3.93 10^6/uL (3.72-5.28); RED CELL DISTRIBUTION WIDTH 12.7 % (11.5-14.0); WHITE BLOOD COUNT 7.7 10^3/uL (4.0-10.5)
[2018-05-04 03:54] LABS: BLOOD UREA NITROGEN 19 mg/dL (7-20); CALCIUM 8.3 mg/dL (8.4-10.2); CARBON DIOXIDE 34 mmol/L (22-30); CHLORIDE 100 mmol/L (98-107); GLUCOSE 103 mg/dL (75-110); POTASSIUM 4.1 mmol/L (3.6-5.0); SODIUM 138.1 mmol/L (137-145)
[2018-05-04 04:03] LABS: ANION GAP 4 (5-19)
[2018-05-04] MEDS: DILTIAZEM HCL 30 MG TABLET PO SCH ×3 (05:50→21:28)
[2018-05-04] MEDS: INSULIN LISPRO 100 UNIT/ML 3 ML VIAL SUBCUT SCH ×3 (05:55→17:34)
[2018-05-04] MEDS: CEFEPIME HCL 2 GM in DEXTROSE 5%-WATER 50 ML IV SCH (09:12)
[2018-05-04] MEDS: DOCUSATE SODIUM 100 MG CAPSULE PO SCH ×2 (09:12→17:34)
[2018-05-04] MEDS: CYANOCOBALAMIN (VITAMIN B-12) 1,000 MCG TABLET PO SCH (09:12)
[2018-05-04] MEDS: CITALOPRAM HYDROBROMIDE 20 MG TABLET PO SCH (09:12)
[2018-05-04] MEDS: APIXABAN 5 MG TABLET PO SCH ×2 (09:12→17:34)
--- NOTE | 2018-05-04 09:51 | PDOC PROGRESS REPORT ---
Subjective Progress Note for:: 05/03/18 Subjective:: Feeling better but still feels tired. Appetite is spotty. Reason For Visit: UTI SEPSIS AMS ARF Physical Exam Vital Signs: Temp Pulse Resp BP Pulse Ox 97.9 F 70 20 143/67 H 96 05/03/18 15:21 05/03/18 15:21 05/03/18 15:21 05/03/18 15:21 05/03/18 15:21 Intake & Output 05/02/18 05/03/18 05/04/18 06:59 06:59 06:59 Intake Total 600 1202 560 Output Total 1375 2130 560 Balance -775 -928 0 Weight 110.2 kg 110.9 kg General appearance: PRESENT: no acute distress, cooperative, obese - BMI 40.7, well-developed Head exam: PRESENT: normocephalic Respiratory exam: PRESENT: clear to auscultation claudia, symmetrical, unlabored. ABSENT: chest wall tenderness, rales, rhonchi, wheezes Cardiovascular exam: PRESENT: RRR, +S1, +S2 GI/Abdominal exam: PRESENT: normal bowel sounds, soft. ABSENT: distended, tenderness Extremities exam: PRESENT: +1 edema Neurological exam: PRESENT: alert, awake, oriented to person, oriented to place Psychiatric exam: PRESENT: appropriate affect. ABSENT: agitated, anxious Focused psych exam: ABSENT: delusional, restlessness Results Laboratory Results: 05/03/18 04:13 05/01/18 15:47 05/03/18 04:13 WBC 8.6 RBC 3.86 Hgb 13.0 Hct 38.8 MCV 100 H MCH 33.6 H MCHC 33.4 RDW 12.8 Plt Count 164 Seg Neutrophils % 71.1 Lymphocytes % 16.5 Monocytes % 10.2 Eosinophils % 1.9 Basophils % 0.3 Absolute Neutrophils 6.1 Absolute Lymphocytes 1.4 Absolute Monocytes 0.9 Absolute Eosinophils 0.2 Absolute Basophils 0.0 04/30/18 04/30/18 05/01/18 20:00 23:40 06:00 Troponin I 0.199 0.263 0.175 05/01/18 05/01/18 11:48 17:45 Troponin I 0.112 0.104 Impressions: Chest X-Ray 04/30/18 19:51 IMPRESSION: Elevated right hemidiaphragm. No acute infiltrate. copyright 2010 [employer]- All Rights Reserved KUB X-Ray 04/30/18 21:31 IMPRESSION: The tip of the right femoral venous line projects over the mid right sacrum. copyright 2010 [employer]- All Rights Reserved Assessment & Plan - Diagnosis (1) Septic shock Is this a current diagnosis for this admission?: Yes Plan: Most likely from the urinary infection with Proteus mirabilis. When sensitivities are available I will modify the antibiotics. (2) Acute metabolic encephalopathy Is this a current diagnosis for this admission?: Yes Plan: Metabolic encephalopathy from the infection and sepsis. She seems to be improving. We will continue to monitor. We will try and find out what her premorbid baseline was. (3) Acute kidney injury Is this a current diagnosis for this admission?: Yes Plan: With IV fluids and treatment of the infection the acute kidney injury has resolved. (4) Acute respiratory failure with hypoxia and hypercapnia Is this a current diagnosis for this admission?: Yes Plan: Resolved. (5) COPD (chronic obstructive pulmonary disease) Qualifiers: COPD type: unspecified COPD Qualified Code(s): J44.9 - Chronic obstructive pulmonary disease, unspecified Is this a current diagnosis for this admission?: Yes Plan: Continue current regimen. - Time Time Spent with patient: 15-24 minutes Medications reviewed and adjusted accordingly: Yes
--- NOTE | 2018-05-04 18:40 | PDOC PROGRESS REPORT ---
Subjective Progress Note for:: 05/04/18 Subjective:: Still feels very weak. Seems less confused. Reason For Visit: UTI SEPSIS AMS ARF Physical Exam Vital Signs: Temp Pulse Resp BP Pulse Ox 98.3 F 66 18 184/84 H 96 05/04/18 12:08 05/04/18 14:00 05/04/18 12:08 05/04/18 12:08 05/04/18 12:08 Intake & Output 05/03/18 05/04/18 05/05/18 06:59 06:59 06:59 Intake Total 1202 1030 468 Output Total 2130 1360 1000 Balance -558 -333 -532 Weight 110.9 kg General appearance: PRESENT: no acute distress, cooperative, morbidly obese, well-developed Head exam: PRESENT: normocephalic Respiratory exam: PRESENT: clear to auscultation claudia, rales - Faint at bases, symmetrical. ABSENT: rhonchi, wheezes Cardiovascular exam: PRESENT: RRR, +S1, +S2 GI/Abdominal exam: PRESENT: normal bowel sounds, soft. ABSENT: distended, tenderness Rectal exam: PRESENT: deferred Neurological exam: PRESENT: alert, awake, oriented to person, oriented to place - She knew she was in [place]., oriented to time - The patient did know that it was April. She thought it was and not Wednesday., oriented to situation - She knew that she had sepsis. It took a minute for her to come up with that specific term., other - She reported vaginal bleeding when in fact she pulled her central line out and the blood was from that. Psychiatric exam: PRESENT: appropriate affect. ABSENT: agitated, anxious Focused psych exam: ABSENT: delusional, restlessness Results Laboratory Results: 05/04/18 03:28 05/04/18 03:28 05/04/18 05/04/18 03:28 03:28 WBC 7.7 RBC 3.93 Hgb 13.2 Hct 38.7 MCV 98 H MCH 33.7 H MCHC 34.2 RDW 12.7 Plt Count 160 Sodium 138.1 Potassium 4.1 Chloride 100 Carbon Dioxide 34 H Anion Gap 4 L BUN 19 Creatinine 0.58 Est GFR ( Amer) > 60 Est GFR (Non-Af Amer) > 60 Glucose 103 Calcium 8.3 L Magnesium 2.0 04/30/18 04/30/18 05/01/18 20:00 23:40 06:00 Troponin I 0.199 0.263 0.175 05/01/18 05/01/18 05/04/18 11:48 17:45 03:28 Troponin I 0.112 0.104 0.063 Impressions: Chest X-Ray 04/30/18 19:51 IMPRESSION: Elevated right hemidiaphragm. No acute infiltrate. copyright 2010 [employer]- All Rights Reserved KUB X-Ray 04/30/18 21:31 IMPRESSION: The tip of the right femoral venous line projects over the mid right sacrum. copyright 2010 [employer]- All Rights Reserved Assessment & Plan - Diagnosis (1) Septic shock Is this a current diagnosis for this admission?: Yes Plan: Septic shock resolved. (2) Acute metabolic encephalopathy Is this a current diagnosis for this admission?: Yes Plan: Greatly improved. As noted above the patient had knowledge of location and her illness. She certainly confused vaginal bleeding with bleeding from her triple- lumen catheter site that she removed herself. (3) Acute kidney injury Is this a current diagnosis for this admission?: Yes Plan: Resolved (4) Acute respiratory failure with hypoxia and hypercapnia Is this a current diagnosis for this admission?: Yes Plan: Still on oxygen. We will continue to wean. She reports not being on oxygen at home. (5) COPD (chronic obstructive pulmonary disease) Qualifiers: COPD type: unspecified COPD Qualified Code(s): J44.9 - Chronic obstructive pulmonary disease, unspecified Is this a current diagnosis for this admission?: Yes (6) Obesity, morbid, BMI 40.0-49.9 Is this a current diagnosis for this admission?: Yes Plan: Due to patient's debility exercise is not likely therefore weight management wit h diet. (7) Physical deconditioning Is this a current diagnosis for this admission?: Yes Plan: Due to the patient's critical illness she is quite weak. Physical and occupational therapies are evaluating the patient. She has limited activity and would benefit from half-way placement as she would be unsafe to go directly home at this point. - Time Time Spent with patient: 15-24 minutes Medications reviewed and adjusted accordingly: Yes
[2018-05-04] MEDS: CEFAZOLIN 1 GM/D5W RTU 1 GM/50 ML RTUPB IV SCH (21:27)
[2018-05-04] MEDS: ATORVASTATIN CALCIUM 40 MG TABLET PO SCH (21:29)
[2018-05-04] MEDS: NORMAL SALINE 1000 ML 1,000 ML IV PRN (21:40)
[2018-05-05] MEDS: DILTIAZEM HCL 30 MG TABLET PO SCH ×3 (05:10→22:16)
[2018-05-05] MEDS: INSULIN LISPRO 100 UNIT/ML 3 ML VIAL SUBCUT SCH ×4 (07:24→17:04)
[2018-05-05] MEDS: CITALOPRAM HYDROBROMIDE 20 MG TABLET PO SCH (09:53)
[2018-05-05] MEDS: APIXABAN 5 MG TABLET PO SCH ×2 (09:53→17:40)
[2018-05-05] MEDS: CYANOCOBALAMIN (VITAMIN B-12) 1,000 MCG TABLET PO SCH (09:53)
[2018-05-05] MEDS: DOCUSATE SODIUM 100 MG CAPSULE PO SCH ×2 (09:53→17:41)
[2018-05-05] MEDS: CEFAZOLIN 1 GM/D5W RTU 1 GM/50 ML RTUPB IV SCH ×2 (09:53→22:10)
[2018-05-05] MEDS: NORMAL SALINE 1000 ML 1,000 ML IV PRN ×2 (09:56→20:35)
[2018-05-05] MEDS ORDERED: LOSARTAN POTASSIUM 50 MG TABLET PO SCH (12:45)
--- NOTE | 2018-05-05 13:06 | PDOC PROGRESS REPORT ---
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 She presented to [facility] with 24 hours of foul-smelling urine and diarrhea developing altered mental status prompting a call to EMS. The patient was admitted to the hospitalist service for sepsis, UTI, acute renal failure. Patient was seen this morning on rounds, she is resting comfortably in bed on supplemental oxygen via nasal cannula. The patient has no complaints this morning. She is alert and oriented x3, able to answer all questions appropriately. Nursing staff voices concerns about the patient's elevated diastolic blood pressure. Plan to continue PT/OT, resume patient's home dose losartan, likely discharge to senior living within 48 hours. Reason For Visit: UTI SEPSIS AMS ARF Physical Exam Vital Signs: Temp Pulse Resp BP Pulse Ox 97.4 F 80 18 149/80 H 96 05/05/18 11:18 05/05/18 11:18 05/05/18 11:18 05/05/18 11:18 05/05/18 11:18 Intake & Output 05/04/18 05/05/18 05/06/18 06:59 06:59 06:59 Intake Total 6750 173 8597 Output Total 1360 2500 400 Balance -330 -1614 765 Weight 111.5 kg General appearance: PRESENT: obese Eye exam: PRESENT: conjunctiva pink, PERRLA Ear exam: PRESENT: normal external ear exam Mouth exam: PRESENT: moist, tongue midline Teeth exam: PRESENT: poor dentation Neck exam: PRESENT: full ROM Respiratory exam: PRESENT: clear to auscultation claudia, decreased breath sounds - Bilateral lower lobes, symmetrical, unlabored, other - Requires supplemental oxygen via nasal cannula for SPO2>90% Cardiovascular exam: PRESENT: RRR, +S1, +S2 Pulses: PRESENT: normal radial pulses, normal dorsalis pedis pul Vascular exam: PRESENT: normal capillary refill GI/Abdominal exam: PRESENT: soft. ABSENT: tenderness Rectal exam: PRESENT: deferred Extremities exam: PRESENT: full ROM Musculoskeletal exam: PRESENT: ambulatory - with assistance, full ROM, normal inspection Neurological exam: PRESENT: alert, awake, oriented to person, oriented to place, oriented to time, oriented to situation Psychiatric exam: PRESENT: appropriate affect Skin exam: PRESENT: dry, intact, normal color Results Laboratory Results: 05/04/18 03:28 05/04/18 03:28 04/30/18 04/30/18 05/01/18 20:00 23:40 06:00 Troponin I 0.199 0.263 0.175 05/01/18 05/01/18 05/04/18 11:48 17:45 03:28 Troponin I 0.112 0.104 0.063 Impressions: Chest X-Ray 04/30/18 19:51 IMPRESSION: Elevated right hemidiaphragm. No acute infiltrate. copyright 2010 [employer]- All Rights Reserved KUB X-Ray 04/30/18 21:31 IMPRESSION: The tip of the right femoral venous line projects over the mid right sacrum. copyright 2010 [employer]- All Rights Reserved Status: Imported from PACS Assessment & Plan - Diagnosis (1) Septic shock Is this a current diagnosis for this admission?: Yes Plan: RESOLVED (2) Acute kidney injury Is this a current diagnosis for this admission?: Yes Plan: RESOLVED. Cr<1.0 (3) Acute metabolic encephalopathy Is this a current diagnosis for this admission?: Yes Plan: Improved. Secondary to septic shock. Patient is able to answer orientation questions. She seemed to have difficulty understanding that she has a Prater catheter present and that it continuously drains her urine. Other than this, the patient seems completely appropriate. (4) HTN (hypertension) Qualifiers: Hypertension type: essential hypertension Qualified Code(s): I10 - Essential (primary) hypertension Is this a current diagnosis for this admission?: Yes Plan: PMH HTN. Antihypertensives previously on hold for hypotension secondary to septic shock. Sepsis has resolved. Diastolic BP>100 this morning Systolic BP within reasonable range Resume home dose losartan (5) Acute respiratory failure with hypoxia and hypercapnia Is this a current diagnosis for this admission?: Yes Plan: Improving Patient has a history of COPD but does not wear home O2 At this time, requiring 3.5 L nasal cannula to maintain SPO2>90% Attempt to wean (6) COPD (chronic obstructive pulmonary disease) Qualifiers: COPD type: unspecified COPD Qualified Code(s): J44.9 - Chronic obstructive pulmonary disease, unspecified Is this a current diagnosis for this admission?: Yes Plan: Plan as above (7) Obesity, morbid, BMI 40.0-49.9 Is this a current diagnosis for this admission?: Yes Plan: Weight management with diet (8) Debility Is this a current diagnosis for this admission?: Yes Plan: Patient has suffered a significant amount of muscle atrophy due to illness Continue PT OT Will likely require senior living following discharge from [facility] Discharge planning aware - Time Time Spent with patient: 15-24 minutes Anticipated discharge: Home Within: within 48 hours - Inpatient Certification Based on my medical assessment, after consideration of the patient's comorbidities, presenting symptoms, or acuity I expect that the services needed warrant INPATIENT care.: Yes I certify that my determination is in accordance with my understanding of Medicare's requirements for reasonable and necessary INPATIENT services [42 CFR 412.3e].: Yes Medical Necessity: Risk of Complication if Not Cared For in Hospital - Plan Summary Plan Summary: PT/OT. RESUME ANTI-HTN MEDICATION. ANTICIPATE D/C TO SNF FACILITY W/IN 24-48 HRS
[2018-05-05] MEDS: LOSARTAN POTASSIUM 50 MG TABLET PO SCH ×2 (13:30→22:11)
[2018-05-05] MEDS: ATORVASTATIN CALCIUM 40 MG TABLET PO SCH (22:11)
[2018-05-06] MEDS: INSULIN LISPRO 100 UNIT/ML 3 ML VIAL SUBCUT SCH ×4 (01:44→17:45)
[2018-05-06] MEDS: DILTIAZEM HCL 30 MG TABLET PO SCH ×3 (06:59→21:12)
[2018-05-06] MEDS: LOSARTAN POTASSIUM 50 MG TABLET PO SCH ×2 (09:50→21:12)
[2018-05-06] MEDS: CYANOCOBALAMIN (VITAMIN B-12) 1,000 MCG TABLET PO SCH (09:50)
[2018-05-06] MEDS: CEFAZOLIN 1 GM/D5W RTU 1 GM/50 ML RTUPB IV SCH ×2 (09:50→21:12)
[2018-05-06] MEDS: APIXABAN 5 MG TABLET PO SCH ×2 (09:51→17:47)
[2018-05-06] MEDS: DOCUSATE SODIUM 100 MG CAPSULE PO SCH ×2 (09:51→17:47)
[2018-05-06] MEDS: CITALOPRAM HYDROBROMIDE 20 MG TABLET PO SCH (09:51)
--- NOTE | 2018-05-06 20:48 | PDOC PROGRESS REPORT ---
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 She presented to [facility] with 24 hours of foul-smelling urine and diarrhea developing altered mental status prompting a call to EMS. The patient was admitted to the hospitalist service for sepsis, UTI, acute renal failure. Patient was seen this morning on rounds, she is resting comfortably in bed on supplemental oxygen via nasal cannula. The patient has no complaints this morning. She is alert and oriented x3, able to answer all questions appropriately. Nursing staff has no concerns. PT/OT states patient is safe to go home with home health. Attempted to contact patient's daughter. Plan to discharge home tomorrow after receiving her final dose of IV antibiotics (day #7). Reason For Visit: UTI SEPSIS AMS ARF Physical Exam Vital Signs: Temp Pulse Resp BP Pulse Ox 98.4 F 75 16 177/81 H 90 L 05/06/18 15:42 05/06/18 15:42 05/06/18 15:42 05/06/18 15:42 05/06/18 15:42 Intake & Output 05/05/18 05/06/18 05/07/18 06:59 06:59 06:59 Intake Total 886 2215 758 Output Total 2500 1800 1500 Balance -1614 415 -742 Weight 111.5 kg 111.7 kg General appearance: PRESENT: morbidly obese Eye exam: PRESENT: PERRLA Mouth exam: PRESENT: moist Teeth exam: PRESENT: poor dentation Respiratory exam: PRESENT: clear to auscultation claudia, decreased breath sounds - bilateral bases, symmetrical, unlabored Cardiovascular exam: PRESENT: RRR Pulses: PRESENT: normal radial pulses, normal dorsalis pedis pul Vascular exam: PRESENT: normal capillary refill GI/Abdominal exam: PRESENT: normal bowel sounds, soft. ABSENT: tenderness Rectal exam: PRESENT: deferred Extremities exam: PRESENT: full ROM Musculoskeletal exam: PRESENT: ambulatory - with assistance, full ROM Neurological exam: PRESENT: alert, awake, oriented to person, oriented to place, oriented to time, oriented to situation Psychiatric exam: PRESENT: appropriate affect Skin exam: PRESENT: dry, intact, normal color Results Laboratory Results: 05/04/18 03:28 05/04/18 03:28 02/16/19 23:40 Blood Blood Culture - Final NO GROWTH IN 5 DAYS 04/30/18 20:00 Blood Blood Culture - Final NO GROWTH IN 5 DAYS 04/30/18 04/30/18 05/01/18 20:00 23:40 06:00 Troponin I 0.199 0.263 0.175 05/01/18 05/01/18 05/04/18 11:48 17:45 03:28 Troponin I 0.112 0.104 0.063 Impressions: Chest X-Ray 04/30/18 19:51 IMPRESSION: Elevated right hemidiaphragm. No acute infiltrate. copyright 2010 [employer]- All Rights Reserved KUB X-Ray 04/30/18 21:31 IMPRESSION: The tip of the right femoral venous line projects over the mid right sacrum. copyright 2010 [employer]- All Rights Reserved Assessment & Plan - Diagnosis (1) Septic shock Is this a current diagnosis for this admission?: Yes Plan: RESOLVED (2) Acute kidney injury Is this a current diagnosis for this admission?: Yes Plan: RESOLVED. Cr<1.0 (3) Acute metabolic encephalopathy Is this a current diagnosis for this admission?: Yes (4) HTN (hypertension) Qualifiers: Hypertension type: essential hypertension Qualified Code(s): I10 - Essent ial (primary) hypertension Is this a current diagnosis for this admission?: Yes Plan: [facility] HTN. Antihypertensives previously on hold for hypotension secondary to septic shock. Sepsis has resolved. Resumed home dose losartan yesterday BP well controlled (5) Acute respiratory failure with hypoxia and hypercapnia Is this a current diagnosis for this admission?: Yes Plan: Improving Patient has a history of COPD but does not wear home O2 Continue weaning (6) COPD (chronic obstructive pulmonary disease) Qualifiers: COPD type: unspecified COPD Qualified Code(s): J44.9 - Chronic obstructive pulmonary disease, unspecified Is this a current diagnosis for this admission?: Yes Plan: Plan as above (7) Obesity, morbid, BMI 40.0-49.9 Is this a current diagnosis for this admission?: Yes Plan: Weight management with diet (8) Debility Is this a current diagnosis for this admission?: Yes Plan: Patient has suffered a significant amount of muscle atrophy due to illness Continue PT OT Recommend discharge home with home health Discharge planning aware - Time Time Spent with patient: 15-24 minutes Medications reviewed and adjusted accordingly: Yes Anticipated discharge: Home - Inpatient Certification Based on my medical assessment, after consideration of the patient's comorbidities, presenting symptoms, or acuity I expect that the services needed warrant INPATIENT care.: Yes I certify that my determination is in accordance with my understanding of Medicare's requirements for reasonable and necessary INPATIENT services [42 CFR 412.3e].: Yes Medical Necessity: Need for IV Antibiotics - Plan Summary Plan Summary: DISCHARGE HOME TOMORROW FOLLOWING DAY#7 OF ABX
[2018-05-06] MEDS: ATORVASTATIN CALCIUM 40 MG TABLET PO SCH (21:12)
[2018-05-07] MEDS: INSULIN LISPRO 100 UNIT/ML 3 ML VIAL SUBCUT SCH ×2 (00:42→05:46)
[2018-05-07] MEDS: DILTIAZEM HCL 30 MG TABLET PO SCH (05:46)
[2018-05-07] MEDS: CYANOCOBALAMIN (VITAMIN B-12) 1,000 MCG TABLET PO SCH (09:26)
[2018-05-07] MEDS: DOCUSATE SODIUM 100 MG CAPSULE PO SCH (09:26)
[2018-05-07] MEDS: APIXABAN 5 MG TABLET PO SCH (09:26)
[2018-05-07] MEDS: CITALOPRAM HYDROBROMIDE 20 MG TABLET PO SCH (09:26)
[2018-05-07] MEDS: CEFAZOLIN 1 GM/D5W RTU 1 GM/50 ML RTUPB IV SCH (09:26)
[2018-05-07] MEDS ORDERED: LOSARTAN POTASSIUM 50 MG TABLET PO SCH (10:00)
[2018-05-07 10:40] VITALS: BP 151/68
--- NOTE | 2018-05-12 10:02 | PDOC DISCHARGE SUMMARY ---
General - Admit/Disc Date/PCP Admission Date/Primary Care Provider: 04/30/18 21:54 Discharge Date: 05/07/18 - Discharge Diagnosis (1) Septic shock Is this a current diagnosis for this admission?: Yes (2) Acute kidney injury Is this a current diagnosis for this admission?: Yes (3) Acute metabolic encephalopathy Is this a current diagnosis for this admission?: Yes (4) HTN (hypertension) Is this a current diagnosis for this admission?: Yes (5) Acute respiratory failure with hypoxia and hypercapnia Is this a current diagnosis for this admission?: Yes (6) COPD (chronic obstructive pulmonary disease) Is this a current diagnosis for this admission?: Yes (7) Obesity, morbid, BMI 40.0-49.9 Is this a current diagnosis for this admission?: Yes (8) Debility Is this a current diagnosis for this admission?: Yes - Additional Information Resuscitation Status: Full Code Discharge Diet: As Tolerated Discharge Activity: Activity As Tolerated Prescriptions: Ciprofloxacin HCl [Cipro 500 mg Tablet] 500 mg PO BID #8 tablet Losartan Potassium [Cozaar 50 mg Tablet] 100 mg PO DAILY #30 tablet Home Medications: Diltiazem HCl [Cardizem 30 mg Tablet] 30 mg PO Q8 tablet 07/21/17 Apixaban [Eliquis 5 mg Tablet] 5 mg PO BID 05/01/18 Atorvastatin Calcium [Lipitor 40 mg Tablet] 40 mg PO QHS 05/01/18 Citalopram Hydrobromide [Celexa 20 mg Tablet] 20 mg PO DAILY 05/01/18 Cranberry Conc/Ascorbic Acid [Cranberry Concentrate Softgel] 1 each PO DAILY 05/01/18 Cyanocobalamin (Vitamin B-12) [B-12] 1,000 mcg PO DAILY 05/01/18 Furosemide [Lasix 20 mg Tablet] 30 mg PO QAM 05/01/18 Gabapentin [Neurontin 300 mg Capsule] 300 mg PO DAILY 05/01/18 Loratadine [Claritin 10 mg Tablet] 10 mg PO DAILYP PRN 05/01/18 Potassium Chloride 20 meq PO DAILY 05/01/18 Ciprofloxacin HCl [Cipro 500 mg Tablet] 500 mg PO BID #8 tablet 05/07/18 Losartan Potassium [Cozaar 50 mg Tablet] 100 mg PO DAILY #30 tablet 05/07/18 History of Present Illness History of Present Illness: RAFAELA RHODES is a 83 year old female hypertension, pulmonary emboli, COPD, 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 She presents with 24 hours of foul-smelling urine and diarrhea developing altered mental status prompting a call to EMS finding her hypotensive with a systolic pressure of 60 over palp, hypoxic with a pulse oximetry of 63% on room air. She started on oxygen and bolus of LR in route to the emergency department where she is found to have persistent altered mental status and hypotension. ABG reveals a hypercapnic and hypoxic respiratory failure with a PCO2 of 66 and PO2 of 62. Chemistry reveals acute renal failure and metabolic acidosis. She is started on BiPAP, receives a second liter of LR, empiric antibiotics and started on levofed. She is referred to the hospitalist for admission. Patient's daughter and power of tax attorney is at bedside who denies recent illness or antibiotics in the last month. Her CODE STATUS is verified as full code. 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 She presented to [facility] with 24 hours of foul- smelling urine and diarrhea, developing altered mental status prompting a call to EMS. The patient was admitted to the hospitalist service for sepsis, UTI, acute renal failure. She was admitted to the ICU for septic shock, requiring Levophed to maintain adequate blood pressure. Her initial UA was (+) for UTI, turbid appearing with large number of Leuk Esterase. She was initially treated with Vancomycin and ceftriaxone. Following IVF resuscitation and antibiotic therapy, on hospital day #3 she was downgraded from ICU to IMCU, where she continued her rehabilitation. Urine cult ure grew Proteus Mirabilis. Antibiotics were switched from Vanc/ceftriaxone to Ancef. The patient was very weak and was unable to mobilize without a great deal of assistance, PT/OT was initiated while she was inpatient. On hospital day #5, the patient was deemed safe for discharge. Her vital signs had stabilized, sepsis had resolved, and the patient was making improvements with her physical therapy. She was sent home with a prescription for Ciprofloxacin to complete her antibiotic treatment of a complicated UTI. The patient was discharged home in the care of her daughter with the plan for home health & home PT/OT. For any further information regarding this patient's hospitalization, please refer to the EMR. Physical Exam Vital Signs: Temp Pulse Resp BP Pulse Ox 98.4 F 66 18 151/68 H 96 05/07/18 10:36 05/07/18 10:36 05/07/18 10:36 05/07/18 10:36 05/07/18 10:36 Results Laboratory Results: 05/04/18 03:28 05/04/18 03:28 04/30/18 04/30/18 05/01/18 20:00 23:40 06:00 Troponin I 0.199 0.263 0.175 05/01/18 05/01/18 05/04/18 11:48 17:45 03:28 Troponin I 0.112 0.104 0.063 Impressions: Chest X-Ray 04/30/18 19:51 IMPRESSION: Elevated right hemidiaphragm. No acute infiltrate. copyright 2011 [employer]- All Rights Reserved KUB X-Ray 04/30/18 21:31 IMPRESSION: The tip of the right femoral venous line projects over the mid right sacrum. copyright 2010 [employer]- All Rights Reserved Status: Imported from PACS Qualifiers - * PATIENT BEING DISCHARGED WITH ANY OF THE FOLLOWING DIAGNOSIS: No
== END 2018-05-07 11:20 | disposition home health service (06) | DRG 871 ==
LOC: ER 19:34 → EH 21:54 → ICU 05-01 00:38 → 3W 05-03 13:54
PROVIDERS: ADMIT Internal Medicine; ATTEND Internal Medicine
PROC: 5A09457 Assistance with Respiratory Ventilation, 24-96 Consecutive Hours, Continuous Positive Airway Pressure (ICD-10-PCS; principal; 2018-04-30)
DX: A41.9 Sepsis, unspecified organism (principal); G93.41 Metabolic encephalopathy; R65.21 Severe sepsis with septic shock; J96.01 Acute respiratory failure with hypoxia; J96.02 Acute respiratory failure with hypercapnia; N30.00 Acute cystitis without hematuria; N17.9 Acute kidney failure, unspecified; Z68.41 Body mass index [BMI] 40.0-44.9, adult; B96.4 Proteus (mirabilis) (morganii) as the cause of diseases classified elsewhere; R65.20 Severe sepsis without septic shock; I10 Essential (primary) hypertension; K21.9 Gastro-esophageal reflux disease without esophagitis; F32.9 Major depressive disorder, single episode, unspecified; M19.90 Unspecified osteoarthritis, unspecified site; F41.9 Anxiety disorder, unspecified; R74.8 Abnormal levels of other serum enzymes; J44.9 Chronic obstructive pulmonary disease, unspecified; E78.00 Pure hypercholesterolemia, unspecified; Z86.718 Personal history of other venous thrombosis and embolism; Z79.01 Long term (current) use of anticoagulants; E66.01 Morbid (severe) obesity due to excess calories; M62.50 Muscle wasting and atrophy, not elsewhere classified, unspecified site; Z87.891 Personal history of nicotine dependence; Z86.711 Personal history of pulmonary embolism; Z86.79 Personal history of other diseases of the circulatory system; Z90.49 Acquired absence of other specified parts of digestive tract; Z90.710 Acquired absence of both cervix and uterus; Z96.651 Presence of right artificial knee joint; Z82.49 Family history of ischemic heart disease and other diseases of the circulatory system; Z79.899 Other long term (current) drug therapy; Z88.8 Allergy status to other drugs, medicaments and biological substances
CPT/HCPCS: 36415; 36600; 51701; 71045; 74018; 80048; 80053; 81001; 82803; 82962; 83036; 83605; 83735; 84484; 85025; 85027; 85610; 87040; 87086; 87088; 87186; 93005; 93010; 93306; 94640; 94660; 96361; 96365; 96375; 99291; C1751; J0690; J0692; J0696; J1642; J1815; J2930; J3370; J3490; J7030; J7060; J7120; J7620; S0164

== ENCOUNTER 2018-05-09 22:20 | Emergency (ER) | payer MEDICARE ==
--- NOTE | 2018-05-09 22:49 | ER Document Report ---
ED Blood Pressure Problem - General Chief Complaint: Blood Pressure Problem Stated Complaint: BLOOD PRESSURE ISSUES Time Seen by Provider: 05/09/18 22:47 Notes: Patient is an 83-year-old female that comes emergency department from home for chief complaint of elevated blood pressure reading. She has a home health nurse, this was checked, home health nurse recommended she be seen in the emergency department. Daughter brought her. Patient denies headache, shortness of breath, chest pain, nausea or vomiting, visual changes, focal numbness or weakness, inability to urinate. She states her only complaint is she lost her dentures. Daughter reports she has been compliant with her diltiazem, losartan, and Lasix. Her blood pressures have been elevated for several days now per daughter. They have a close follow-up appointment with her [employer] consultant. She was just admitted and discharged after urosepsis. TRAVEL OUTSIDE OF THE [place] IN LAST 30 DAYS: No - Related Data Allergies/Adverse Reactions: Beta-Blockers (Beta-Adrenergic Bloc Allergy (Verified 07/05/17 08:51) Syncope Past Medical History - General Information source: Patient, Relative - Daughter - Social History Smoking Status: Never Smoker Chew tobacco use (# tins/day): No Frequency of alcohol use: None Drug Abuse: None Lives with: Family Family History: Hypertension Patient has suicidal ideation: No Patient has homicidal ideation: No - Past Medical History Cardiac Medical History: Reports: Hx Hypertension Pulmonary Medical History: Reports: Hx COPD, Hx Pneumonia Renal/ Medical History: Denies: Hx Peritoneal Dialysis GI Medical History: Reports: Hx Gastroesophageal Reflux Disease Musculoskeletal Medical History: Reports Hx Arthritis Psychiatric Medical History: Reports: Hx Depression - anxiety Past Surgical History: Reports: Hx Cholecystectomy, Hx Hysterectomy, Hx Orthopedic Surgery - R knee replacement; Lower back surgery L5., Other - right hemicolectomy for diverticulitis per daughter. B/L cataract sx. Review of Systems - Review of Systems Constitutional: No symptoms reported EENT: No symptoms reported Cardiovascular: No symptoms reported Respiratory: No symptoms reported Gastrointestinal: No symptoms reported Genitourinary: No symptoms reported Female Genitourinary: No symptoms reported Musculoskeletal: No symptoms reported Skin: No symptoms reported Hematologic/Lymphatic: No symptoms reported Neurological/Psychological: No symptoms reported Physical Exam - Vital signs Vitals: Temp Pulse Resp BP Pulse Ox 97.6 F 86 24 H 187/118 H 91 L 05/09/18 22:34 05/09/18 22:34 05/09/18 22:34 05/09/18 22:34 05/09/18 22:34 - Notes Notes: GENERAL: Alert, interacts well. No acute distress. HEAD: Normocephalic, atraumatic. EYES: Pupils equal, round, and reactive to light. Extraocular movements intact. ENT: Oral mucosa moist, tongue midline. Oropharynx unremarkable. Airway patent. Nares patent, no nasal septal hematoma, TM's intact. NECK: Full range of motion. Supple. Trachea midline. LUNGS: Mildly decreased breath sounds bilaterally. No overt wheezes, rales, rhonchi. No tachypnea. Speaks in full sentences. HEART: Regular rate and rhythm. No murmur ABDOMEN: Soft, non-tender. Non-distended. Bowel sounds present in all 4 quadrants. GENITOURINARY: Deferred EXTREMITIES: Moves all 4 extremities spontaneously. No edema, normal radial and dorsalis pedis pulses bilaterally. No cyanosis. BACK: no cervical, thoracic, lumbar midline tenderness. No saddle anesthesia, normal distal neurovascular exam. NEUROLOGICAL: Alert and oriented x3. Normal speech. [cranial nerves II through XII grossly intact]. PSYCH: Normal affect, normal mood. SKIN: Warm, dry, normal turgor. No rashes or lesions noted. Course - Re-evaluation Re-evalutation: Patient has borderline pulse oxygenation 91%, daughter states that when she is going around this is her normal, patient has COPD, patient denies shortness of breath beyond her baseline she has no tachypnea on my exam, she is talkative and alert. Patient is oriented, at her baseline, no signs of altered mental status. Blood pressure is 180s systolic, however patient has no headache, no chest pain, and has no complaints. Because of the asymptomatic hypertension I discussed at length with the daughter and patient. No additional interventions will be taken at this time, she will perform a blood pressure journal and follow-up closely with cardiology. Discussed strict return precautions with patient and daughter. They state understanding and agreement. - Vital Signs Vital signs: Temp Pulse Resp BP Pulse Ox 97.5 F 79 18 184/74 H 90 L 05/09/18 22:50 05/09/18 22:50 05/09/18 22:50 05/09/18 22:50 05/09/18 22:50 Discharge - Discharge Clinical Impression: Essential hypertension, Elevated blood pressure reading Condition: Stable Disposition: HOME, SELF-CARE Additional Instructions: At this time she is asymptomatic hypertension. Follow-up closely with primary care, taken journal of blood pressures with approximately 1-2 blood pressure readings a day. If she develops a headache, chest pain, weakness on one side of her body, visual changes, or any other concerning symptoms return immediately to the emergency department.
[2018-05-09 22:54] VITALS: BP 184/74
== END 2018-05-09 22:54 | disposition home or self-care (01) ==
LOC: ER 22:20
DX: I10 Essential (primary) hypertension (principal); J44.9 Chronic obstructive pulmonary disease, unspecified; Z90.49 Acquired absence of other specified parts of digestive tract; Z90.710 Acquired absence of both cervix and uterus; Z96.651 Presence of right artificial knee joint
CPT/HCPCS: 99281